=== PATIENT | female | born 1935 | race Caucasian/White ===

== ENCOUNTER 2016-06-09 18:19 | Inpatient (IN) | payer MEDICARE, MEDICAID, OTHER ==
[2016-06-09 19:10] LABS: % BASOPHILS 0.2 % (0.0-2.0); % EOSINOPHILS 2.1 % (0.0-5.0); % LYMPHOCYTES 34.2 % (20.0-50.0); % MONOCYTES 10.2 % (2.0-10.0); % NEUTROPHILS 53.3 % (40.0-80.0); HEMATOCRIT 40.1 % (35.0-45.0); HEMOGLOBIN 13.5 gm/dL (11.7-16.1); MEAN CORPUSCULAR HEMOGLOBIN 30.9 pg (27.0-31.0); MEAN CORPUSCULAR HGB CONC 33.6 pg (28.0-36.0); MEAN PLATELET VOLUME 8.2 fl; NEUTROPHILE ABSOLUTE 2.9 Th/cmm (1.8-8.0); PLATELET COUNT 182 Th/cmm (150-400); RED BLOOD COUNT 4.36 Mil/cmm (3.80-5.20); RED CELL DISTRIBUTION WIDTH 13.3 % (11.5-20.0); WHITE BLOOD COUNT 5.3 Th/cmm (4.8-10.8)
[2016-06-09 19:24] LABS: ANION GAP 11.6 (7.0-16.0); BUN - UREA NITROGEN 19 mg/dL (7-25); BUN/CREATININE RATIO 27.1; CALCIUM SERUM 9.1 mg/dL (8.6-10.3); CARBON DIOXIDE 27.6 mEq/L (21.0-31.0); CHLORIDE 102 mEq/L (98-107); CHOLESTEROL 210 mg/dL (<200); CREATININE - SERUM 0.7 mg/dL (0.6-1.2); GLUCOSE 104 mg/dL (70-105); POTASSIUM SERUM 4.2 mEq/L (3.5-5.1); SODIUM SERUM 137 mEq/L (136-145); TRIGLYCERIDES 111 mg/dL (<150)
--- NOTE | 2016-06-09 19:28 | ED Physician Chart ---
Chief Complaint/HPI - Patient Information Date Seen:: 06/09/16 Time Seen:: 19:25 Chief Complaint:: jocelyn psych admit History of Present Illness:: pt sent from [place] for behavioral issues which were noncompliance w care. she denies pain or recent illness. no fever, no cp. no sob, no abd p. no recent injury Allergies:: Allergies Allergy/AdvReac Type Severity Reaction Status Date / Time iodine Allergy Verified 10/14/15 17:03 blueberry AdvReac Verified 10/14/15 17:03 prochlorperazine AdvReac Verified 10/14/15 17:03 [From Compazine] prochlorperazine edisylate AdvReac Verified 10/14/15 17:03 [From Compazine] prochlorperazine maleate AdvReac Verified 10/14/15 17:03 [From Compazine] sulfacetamide sodium AdvReac Verified 10/14/15 17:03 [From Sulfamide] Vitals:: Vital Signs - 8 hr 06/09/16 18:39 Temp 98.1 F HR 66 RR 16 BP 152/78 O2 Sat % 96 Historian:: Patient, Medical Records Review:: Transfer documents Reviewed Past Medical History - Past Medical History Past Medical History: HTN, DM, Asthma/COPD, Dyslipidemia, Dementia, Other ( parkinsons, hx uterine/ov? ca) Social History: Care Facility Surgical History: Cholecystectomy, Hysterectomy Medication: Reviewed Family Medical History - Family Member Mother History Unknown: Yes Ethnicity: Unknown Living Status: Unknown Physical Exam - Physical Examination General/Constitutional: Awake, Well-developed, well-nourished, Alert, No distress, GCS 15, Non-toxic appearing, Ambulatory Other Gen/Cons comments:: alert, somewhat poor historian.. mod obese. nad. Head: Atraumatic Eyes: Lids, conjuctiva normal, PERRL, EOMI Skin: Nl inspection, No rash, No skin lesions, No ecchymosis, Well hydrated, No lymphadenopathy ENMT: External ears, nose nl, Nasal exam nl, Lips, teeth, gums nl Neck: Nontender, Full ROM w/o pain, No JVD, No nuchal rigidity, No bruit, No mass, No stridor Respiratory: Nl effort/Exclusion, Clear to Auscultation, No Wheeze/Rhonchi/Rales Cardio Vascular: RRR, No murmur, gallop, rubs, NL S1 S2 GI: No tenderness/rebounding/guarding, No organomegaly, No hernia, Normal BS's, Nondistended, No mass/bruits, No McBurney tenderness : No CVA tenderness Extremities: No tenderness or effusion, Full ROM, normal strength in all extremities, No edema, Normal digits & nails Neuro/Psych: Alert/oriented, DTR's symmetric, Normal sensory exam, Normal motor strength, Judgement/insight normal, Mood normal, Normal gait, No focal deficits Other Neuro/Psych comments:: somewhat poor historian Misc: normal gait, Normal back, No paraspinal tenderness Labs/Radiology/EKG Results - Lab Results Results: Laboratory Tests 06/09/16 06/09/16 18:59 18:59 WBC 5.3 RBC 4.36 Hgb 13.5 Hct 40.1 MCV 92.0 MCH 30.9 MCHC Differential 33.6 RDW 13.3 Plt Count 182 MPV 8.2 Neutrophils % 53.3 Lymphocytes % 34.2 Monocytes % 10.2 H Eosinophils % 2.1 Basophils % 0.2 Sodium 137 Potassium 4.2 Chloride 102 Carbon Dioxide 27.6 Anion Gap 11.6 BUN 19 Creatinine 0.7 Est GFR ( Amer) TNP Est GFR (Non-Af Amer) TNP BUN/Creatinine Ratio 27.1 Glucose 104 Calcium 9.1 Triglycerides 111 Cholesterol 210 H LDL Cholesterol Direct 129 HDL Cholesterol 65 - EKG Interpretations EKG Time:: 19:00 Rate & Rhythm: nsr 65 [place]: 19 Intervals: nrml Comments:: wnl ED Septic Shock - . Is Septic Shock (SBP<90, OR Lactate>4 mmol\L) present?: No - <6hrs of presentation: Vital Signs: Vital Signs - 8 hr 06/09/16 18:39 Temp 98.1 F HR 66 RR 16 BP 152/78 O2 Sat % 96 Reassessment (Disposition) - Reassessment Reassessment Condition:: Unchanged - Diagnosis Diagnosis:: difficult behavior / noncompliant w AOL medically clear for geripsych admission - Patient Disposition Admitted to:: [facility] Condition at Disposition:: Unchanged ED Discharge Plan - Patient Disposition Instructions: Psychosis
[2016-06-09] MEDS ORDERED: Maalox 30 mL Cup PO PRN (20:52)
[2016-06-09] MEDS ORDERED: Magnesium Hydroxide (MOM) 30 mL UDC PO PRN (20:52)
[2016-06-09 21:00] VITALS: BP 143/70
[2016-06-09 21:06] LABS: URINE BILIRUBIN NEGATIVE (NEGATIVE); URINE BLOOD NEGATIVE (NEGATIVE); URINE COLOR YELLOW; URINE GLUCOSE (UA) NEGATIVE (NEGATIVE); URINE KETONE NEGATIVE (NEGATIVE); URINE PH 6.5; URINE PROTEIN NEGATIVE (NEGATIVE); URINE UROBILINOGEN 0.2 E.U./dL (0.2 - 1.0)
[2016-06-09 21:07] LABS: URINE BACTERIA NONE SEEN /hpf (NONE SEEN); URINE EPITHELIAL CELLS NONE SEEN /lpf (FEW); URINE RBC NONE SEEN /hpf (0-5); URINE WBC NONE SEEN /hpf (0-5)
[2016-06-09] MEDS: INSULIN ASPART SLIDING SCALE 100 UNITS/ML UNIT SUBQ SCH (22:06)
[2016-06-09] MEDS: Oxybutynin Chloride 5 mg ER Tab PO SCH (22:12)
--- NOTE | 2016-06-10 00:42 | Admit Criteria Form ---
Admit Criteria Forms - Admit Criteria Diagnosis: PSYCHIATRIC DISORDERS Clinical Indications for Inpatient Care (Place 'X' for any and all applicable criteria): Ongoing inpatient care may be needed for ANY ONE of the following(1)(2)(3)(4)(6) (7)(8): [ ]I. Danger to self or others not manageable at lower level of care. [ ]II. Grave disability (eg, inability to perform self care necessary at lower level of care) [X]III. Agitation or inappropriate behavior interfering with care for primary condition (eg, attempting to discontinue lines or drains prematurely, unable to cooperate with respiratory care) [ ]IV. Severe disability or disorder indicated by ALL of the following: [ ]a) Severe behavioral health disorder-related symptoms or condition indicated by ANY ONE of the following: [ ]i) Severe problem with cognition, memory, judgment, or impulse control [ ]ii) Severe clinical manifestations (eg, hallucinations, delusions, other acute psychotic symptoms, denis, extreme agitation or anxiety) [ ]b) Patient management at lower level of care is not feasible until acute intervention or modification is initiated. Extended stay beyond goal length of stay for the primary condition may be indicated when ANY ONE of the following is present: (1)(2)(3)(4): [ ]a) Patient is a danger to self or others and not manageable at lower level of care. [ ]b) Behavior crisis management, including physical or chemical restraints, is required and is not available at a lower level of care. [ ]c) Behavioral symptoms (e.g., agitation, somnolence, inappropriate behavior) are present, and are not manageable at a lower level of care. [ ]d) Patient cannot understand follow-up treatment and crisis plan. [ ]e) Provider and supports are not sufficiently available at lower level of care. [ ]f) Patient cannot participate (e.g., verify absence of plan for harm) and is in needed of monitoring. The original [facility] [employer] content created by [facility] [employer] has been revised. The portions of the content which have been revised are identified through the use of italic text or in bold, and [facility] [employer] has neither reviewed nor approved the modified material. All other unmodified content is copyright [facility] [employer]. Please see references footnoted in the original [facility] edition 2016 Admit Criteria Met?: Yes
[2016-06-10] MEDS: INSULIN ASPART SLIDING SCALE 100 UNITS/ML UNIT SUBQ SCH ×3 (06:41→21:16)
[2016-06-10] MEDS ORDERED: Non-Formulary Item 1 EA (Fluticasone/Salmeterol [Advair 250-50 Diskus] 1 PUFF) INH SCH (07:00)
[2016-06-10 08:10] LABS: HEP B CORE IGM Negative (Negative); HEP C ANTIBODY 0.1 s/co ratio (0.0-0.9)
[2016-06-10] MEDS: Multivitamin Tab PO SCH (08:37)
[2016-06-10] MEDS ORDERED: [UNRECOGNIZED DRUG - OTHER] IH SCH (09:00)
--- NOTE | 2016-06-10 15:01 | History & Physical ---
ADMIT DATE: 06/10/2016 IDENTIFYING INFORMATION: The patient is 80 years old female. CHIEF COMPLAINT: "I am doing blood work." HISTORY OF PRESENT ILLNESS: The patient referred from [facility] because of agitation, psychosis, refusing medication. She apparently was told to come here to do lab work. She said I have done the lab work and I am ready to go home. She minimized everything that led to her admission. She is unpredictable, impulsive. She was in denial about having any intent to harm herself or anybody, very poor historian. PAST PSYCHIATRIC HISTORY: The patient has prior hospitalization many prior hospitalizations. She has a history of being ____ because of the seizure medication. She is delusional, paranoid. MEDICAL HISTORY: History of seizure disorder and Parkinson's. MEDICATIONS: THE PATIENT IS ALLERGIC TO IODINE, PROCHLORPERAZINE, BLUEBERRY, SULFACETAMIDE SODIUM. FAMILY AND SOCIAL HISTORY: The patient reports she has 4 children, 16 grandchildren. She is . She reports she has high school education. 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 She is , does not know how long. No further information is available from the patient. MENTAL STATUS EXAMINATION: The patient is appropriately dressed, appropriately groomed. Her mood is depressed. Affect is constricted. Thoughts are concrete. Speech is coherent. She was alert. She was able to tell me that this is May, not sure of the year. She believes she came here for lab work and need to leave here. She was internally preoccupied. Unable to make safe plan for self-care. She was somewhat paranoid. Long-term memory is poor, cannot remember her age exactly. Short term memory is poor, cannot remember events after coming here. She is unpredictable and impulsive. Her insight and judgment impaired. IMPRESSION: AXIS I: Psychosis, not otherwise specified, dementia with behavior disturbances. MEDICAL DIAGNOSES: Parkinson disease, seizure disorder. Her assets, she is accepting treatment, ____ poor coping skills. INITIAL TREATMENT PLAN: The patient was continued with the Aricept 10 mg at bedtime. She will be continued with the rest of medications, which is Gabapentin 100 mg twice a day, multivitamin, Dilantin and Seroquel 225 mg at bedtime. She is also on Namenda 10 mg twice a day. We will continue her on rest of her medication, ____ also put on seizure precaution. ESTIMATED LENGTH OF STAY: 3-7 days. DISCHARGE CRITERIA: Decrease in psychosis, agitation. After discharge, outpatient. JOB# [id number]
--- NOTE | 2016-06-10 18:00 | History & Physical ---
ADMIT DATE: 06/10/2016 REQUESTING PHYSICIAN: Dr. Crystal. HISTORY OF PRESENT ILLNESS: An 80-year-old female [facility] after the patient was noted to have extreme agitation and aggressive behavior. PAST MEDICAL HISTORY: Remarkable for: 1. Parkinson's disease. 2. COPD. 3. DJD. 4. Hypertension. 5. Seizure disorder. 6. Dementia. 7. History of arrest. 8. Hyperlipidemia. 9. GERD. 10. Diabetes mellitus. MEDICATIONS: At the time of transfer, the patient is taking multiple medications, which include Tylenol, bisacodyl, Sinemet, Aricept, Vasotec, Advair, Neurontin, sliding scale insulin, lorazepam, magnesium sulfate, Namenda, oxybutynin, pioglitazone and Seroquel. ALLERGIES: THE PATIENT IS ALLERGIC TO IODINE, PROCHLORPERAZINE AND BLUE CEBALLOS. SOCIAL HISTORY: The patient lives in a chcf. The patient has no history of smoking cigarette, alcohol or drug use. FAMILY MEDICAL HISTORY: Negative for diabetes and hypertension. REVIEW OF SYSTEMS: The patient currently denies any headache, blurred vision, double vision, dysphagia, odynophagia, runny nose, stuffy nose, fever, chills, cough, chest pain, shortness of breath, palpitation, dizziness, nausea, vomiting, diarrhea. Denies any fever or chills. PHYSICAL EXAMINATION: GENERAL: The patient is alert, awake, oriented, lying in the bed without any acute distress. VITAL SIGNS: Temperature 98.6, pulse 71, respiratory rate is 20, blood pressure 143/70. SKIN: Warm to touch. HEENT: Normocephalic, atraumatic. Extraocular muscles are intact. Tongue more pink and coated. Poor dentition noted. NECK: Supple, no JVD, no hepatojugular reflux. No lymphadenopathy, thyromegaly or carotid bruit. HEART: Both heart sounds are regular. No S3, no S4, no murmur. CHEST: Lung equal in expansion, no wheezing, no crackles. ABDOMEN: Soft. No guarding, no rigidity. Liver, spleen not palpable. No palpable mass. EXTREMITIES: No edema, no cyanosis or clubbing. Peripheral pulses +2. No calf tenderness noted. NEUROLOGIC: Alert, awake, follows commands. No facial asymmetry. Power in upper and lower extremities is 5-. Sensation to touch are intact. Babinskis in both toes are going down. No cerebral sign. Broad wide-based gait also noted. AVAILABLE DIAGNOSTIC DATA: Has been reviewed. CLINICAL IMPRESSION: 1. Acute exacerbation of psychotic disorder. 2. Diabetes mellitus. 3. Hypertension. 4. Seizure disorder. 5. Asthma. 6. Degenerative joint disease. 7. Psychotic disorder. 8. Fall risk. PLAN: 1. Psychotic evaluation and management refer to psychiatrist. 2. The patient is to resume her medications, which includes Advair, Namenda, Sinemet along with Actos and Dilantin. Continue fall and seizure precautions, seizure medications, monitoring the blood sugar and blood pressure along with medical followup by me. The patient is medically stable to participate ____ Geropsych Unit. Care plan has been reviewed and discussed. JOB# [id number]
[2016-06-10] MEDS: Oxybutynin Chloride 5 mg ER Tab PO SCH (21:25)
[2016-06-11] MEDS: INSULIN ASPART SLIDING SCALE 100 UNITS/ML UNIT SUBQ SCH ×4 (06:52→20:16)
[2016-06-11] MEDS: Multivitamin Tab PO SCH (08:27)
[2016-06-11] MEDS: Oxybutynin Chloride 5 mg ER Tab PO SCH (20:22)
--- NOTE | 2016-06-12 01:10 | Progress Notes ---
DATE: 06/11/2016 Case was discussed with staff of the patient, reviewed records. The patient refused her medication this morning; however, I tried to persuade her. She said she does not need to be on medications. She is unpredictable, impulsive, continues to have poor insight, unable to make safe plan for her self-care, delusional and we will try to put on the hold and ____ she continues to refuse; however, she needs to refuse ____3 times in general and we will continue to work with the patient in group therapy, milieu therapy, adjust medication as needed. [facility]# [id number]
[2016-06-12] MEDS: INSULIN ASPART SLIDING SCALE 100 UNITS/ML UNIT SUBQ SCH ×4 (06:32→20:25)
[2016-06-12] MEDS: Multivitamin Tab PO SCH (08:41)
[2016-06-12] MEDS: Oxybutynin Chloride 5 mg ER Tab PO SCH (20:25)
[2016-06-13] MEDS: INSULIN ASPART SLIDING SCALE 100 UNITS/ML UNIT SUBQ SCH ×4 (06:32→20:11)
[2016-06-13] MEDS: Multivitamin Tab PO SCH (09:15)
--- NOTE | 2016-06-13 19:24 | Progress Notes ---
DATE: 06/12/2016 Case was discussed with staff of the patient, reviewed records. The patient has been refusing medications. She believes she is getting discharged. She is delusional, paranoid, believes she is fine, have no problems. Continues to be unable to make safe plan for self-care. Continues to be unpredictable, impulsive, needing redirection. She is sleeping well, eating well. She is not taking medication, we may have to put on hold the ____ and we will continue to work with the patient in group therapy, milieu therapy, and adjust the medications as needed. JOB# [id number]
[2016-06-13] MEDS: Oxybutynin Chloride 5 mg ER Tab PO SCH (20:04)
--- NOTE | 2016-06-14 05:23 | Progress Notes ---
DATE: 06/13/2016 Case was discussed with staff of the patient, reviewed records. The patient continues to have poor insight. I talked to her again today about taking her medications, she refused to talk to me. She said I am not a doctor, that she is ready to get out of here, that even her blood sugar is fine, that she does not need to be on any medication. I went ahead and listed the side effect of the medications she was on, which is Seroquel 225 mg at bedtime, also Haldol that we may give her, and Aricept; however, the patient brushed it off and she would not listen. I asked the staff to bring her a list of side effects of the medications she is on so she can also look at it, I did elicit to her. She has still very poor insight. She told me I am not a doctor, she does not need to talk to me, that she is going and leaving this place. I told her I am the one who can discharge her and I am not discharging her. She continues to have very poor insight. I will be putting her on a hold and may have to initiate a Riese on her because she is gravely disabled and unable to make safe plan for self-care, and we will continue to work with the patient in group therapy, milieu therapy, and adjust the medication as needed. JOB# [id number]
[2016-06-14] MEDS: INSULIN ASPART SLIDING SCALE 100 UNITS/ML UNIT SUBQ SCH ×4 (06:44→21:54)
[2016-06-14] MEDS: Multivitamin Tab PO SCH (08:49)
[2016-06-14] MEDS ORDERED: Dextrose 50% 50 mL Abboject IVP ONE (19:58)
[2016-06-14] MEDS: Oxybutynin Chloride 5 mg ER Tab PO SCH (21:55)
--- NOTE | 2016-06-15 03:36 | Progress Notes ---
DATE: 06/14/2016 Today, talked to the patient with the med nurse Jaquan Almanza. We talked to patient about the medications. She believes that I am not a doctor. She is not taking any medication. She should not be on any medication and that she should be discharged and actually she is going to be discharged. I did list for the side effects of the medications and asked the med nurse to give her a copy of the side effects of the Seroquel after I elicited to her. However, she said that she is willing to take the medication and she did end up taking it, so at this point I am not going to ____ unless she starts refusing medication again. She is still delusional, paranoid. She believes I am somebody else, unpredictable, impulsive, needing redirection, isolating herself. We will continue to work with the patient in group therapy, milieu therapy, adjust medications as needed. JOB# [id number]
[2016-06-15] MEDS: INSULIN ASPART SLIDING SCALE 100 UNITS/ML UNIT SUBQ SCH ×3 (06:49→20:20)
[2016-06-15] MEDS: Multivitamin Tab PO SCH (09:45)
--- NOTE | 2016-06-15 14:47 | Internal Medicine Prog Note ---
Internal Medicine Subjective - Subjective Patient seen and examined:: with staff, chart reviewed Patient is:: awake, verbal, interactive Per staff patient is:: no adverse event, confused Internal Medicine Objective - Results Result Diagrams: 06/09/16 18:59 06/09/16 18:59 Recent Labs: Laboratory Last Values WBC 5.3 Th/cmm (4.8-10.8) 06/09/16 18:59 RBC 4.36 Mil/cmm (3.80-5.20) 06/09/16 18:59 Hgb 13.5 gm/dL (11.7-16.1) 06/09/16 18:59 Hct 40.1 % (35.0-45.0) 06/09/16 18:59 MCV 92.0 fl (81-100) 06/09/16 18:59 MCH 30.9 pg (27.0-31.0) 06/09/16 18:59 MCHC Differential 33.6 pg (28.0-36.0) 06/09/16 18:59 RDW 13.3 % (11.5-20.0) 06/09/16 18:59 Plt Count 182 Th/cmm (150-400) 06/09/16 18:59 MPV 8.2 fl 06/09/16 18:59 Neutrophils % 53.3 % (40.0-80.0) 06/09/16 18:59 Lymphocytes % 34.2 % (20.0-50.0) 06/09/16 18:59 Monocytes % 10.2 % (2.0-10.0) H 06/09/16 18:59 Eosinophils % 2.1 % (0.0-5.0) 06/09/16 18:59 Basophils % 0.2 % (0.0-2.0) 06/09/16 18:59 Sodium 137 mEq/L (136-145) 06/09/16 18:59 Potassium 4.2 mEq/L (3.5-5.1) 06/09/16 18:59 Chloride 102 mEq/L (98-107) 06/09/16 18:59 Carbon Dioxide 27.6 mEq/L (21.0-31.0) 06/09/16 18:59 Anion Gap 11.6 (7.0-16.0) 06/09/16 18:59 BUN 19 mg/dL (7-25) 06/09/16 18:59 Creatinine 0.7 mg/dL (0.6-1.2) 06/09/16 18:59 Est GFR ( Amer) TNP 06/09/16 18:59 Est GFR (Non-Af Amer) TNP 06/09/16 18:59 BUN/Creatinine Ratio 27.1 06/09/16 18:59 Glucose 104 mg/dL (70-105) 06/09/16 18:59 POC Glucose 74 MG/DL (70 - 105) 06/15/16 11:45 Calcium 9.1 mg/dL (8.6-10.3) 06/09/16 18:59 Triglycerides 111 mg/dL (<150) 06/09/16 18:59 Cholesterol 210 mg/dL (<200) H 06/09/16 18:59 LDL Cholesterol Direct 129 mg/dL (75-193) 06/09/16 18:59 HDL Cholesterol 65 mg/dL (23-92) 06/09/16 18:59 TSH 0.78 uIU/ml (0.34-5.60) 06/09/16 18:59 Urine Source CLEAN C 06/09/16 19:00 Urine Color YELLOW 06/09/16 19:00 Urine Clarity CLEAR (CLEAR) 06/09/16 19:00 Urine pH 6.5 06/09/16 19:00 Ur Specific [place] 1.015 (1.005-1.030) 06/09/16 19:00 Urine Protein NEGATIVE mg/dL (NEGATIVE) 06/09/16 19:00 Urine Glucose (UA) NEGATIVE mg/dL (NEGATIVE) 06/09/16 19:00 Urine Ketones NEGATIVE mg/dL (NEGATIVE) 06/09/16 19:00 Urine Blood NEGATIVE (NEGATIVE) 06/09/16 19:00 Urine Nitrate NEGATIVE (NEGATIVE) 06/09/16 19:00 Urine Bilirubin NEGATIVE (NEGATIVE) 06/09/16 19:00 Urine Urobilinogen 0.2 E.U./dL (0.2 - 1.0) 06/09/16 19:00 Ur Leukocyte Esterase NEGATIVE (NEGATIVE) 06/09/16 19:00 Urine RBC NONE SEEN /hpf (0-5) 06/09/16 19:00 Urine WBC NONE SEEN /hpf (0-5) 06/09/16 19:00 Ur Epithelial Cells NONE SEEN /lpf (FEW) 06/09/16 19:00 Urine Bacteria NONE SEEN /hpf (NONE SEEN) 06/09/16 19:00 RPR NONREACTIVE (NONREACTIVE) 06/09/16 18:59 Hepatitis A IgM Ab Negative (Negative) 06/09/16 18:59 Hep Bs Antigen Negative (Negative) 06/09/16 18:59 Hep B Core IgM Ab Negative (Negative) 06/09/16 18:59 Hepatitis C Antibody 0.1 s/co ratio (0.0-0.9) 06/09/16 18:59 - Physical Exam Vitals and I&O: Vital Signs Temp 98.0 F 06/15/16 06:41 Pulse 70 06/15/16 06:41 Resp 20 06/15/16 11:05 BP 156/76 06/15/16 06:41 Pulse Ox 97 06/15/16 06:41 Intake & Output 06/14/16 06/15/16 06/15/16 18:59 06:59 18:59 Intake Total 240 Balance 240 Intake: Oral 240 Other: # Voids 1 # Bowel Movements 0 Active Medications: Current Medications Acetaminophen (Tylenol) 650 mg PO Q4HR PRN PRN Reason: Pain Stop: 08/08/16 20:51 Al Hydrox/Mg Hydrox/Simethicone (Maalox) 30 ml PO Q4HR PRN PRN Reason: GI DISTRESS Stop: 08/08/16 20:51 Bisacodyl (Dulcolax 10 Mg Supp) 10 mg RC DAILY PRN PRN Reason: Constipation Stop: 08/08/16 20:51 Carbidopa/Levodopa (Sinemet 25 Mg-250 Mg) 1 tab PO QID EMILY Stop: 08/08/16 20:59 Last Admin: 06/15/16 12:37 Dose: Not Given Donepezil HCl (Aricept) 10 mg PO HS EMILY Stop: 08/08/16 20:59 Last Admin: 06/14/16 21:55 Dose: Not Given Enalapril Maleate (Vasotec) 10 mg PO DAILY EMILY Stop: 08/09/16 08:59 Last Admin: 06/15/16 09:45 Dose: Not Given Gabapentin (Neurontin) 100 mg PO BID EMILY Stop: 08/09/16 08:59 Last Admin: 06/15/16 09:45 Dose: Not Given Haloperidol (Haldol) 2 mg PO DAILY EMILY PRN Reason: Protocol Stop: 08/14/16 12:14 Last Admin: 06/15/16 14:37 Dose: Not Given Insulin Aspart (Novolog Insulin Sliding Scale) 0 units SUBQ ACHS EMILY PRN Reason: Protocol Stop: 08/08/16 20:59 Last Admin: 06/15/16 11:30 Dose: Not Given Lorazepam (Ativan) 0.5 mg PO Q6H PRN; Protocol PRN Reason: Agitation Stop: 08/08/16 20:51 Magnesium Hydroxide (Milk Of Magnesia) 30 ml PO DAILY PRN PRN Reason: Constipation Stop: 08/08/16 20:51 Memantine (Namenda) 10 mg PO BID [facility] Stop: 08/09/16 08:59 Last Admin: 06/15/16 09:45 Dose: Not Given Miscellaneous (Fluticasone Propionate/Salme [Advair Diskus 500/50]) 1 dsk IH BID [facility] Stop: 08/09/16 08:59 Miscellaneous (Fluticasone/Salmeterol [Advair 250-50 Diskus]) 1 puff INH BIDRT [facility] Stop: 08/09/16 06:59 Multivitamins/Vitamin C (Theragran) 1 tab PO DAILY [facility] Stop: 08/09/16 08:59 Last Admin: 06/15/16 09:45 Dose: Not Given Oxybutynin Chloride (Ditropan Xl) 5 mg PO HS [facility] Stop: 08/08/16 20:59 Last Admin: 06/14/16 21:55 Dose: Not Given Phenytoin (Dilantin) 100 mg PO TID EMILY Stop: 08/08/16 20:59 Last Admin: 06/15/16 13:38 Dose: Not Given Pioglitazone HCl (Actos) 30 mg PO DAILY [facility] Stop: 08/09/16 08:59 Last Admin: 06/15/16 09:45 Dose: Not Given Quetiapine Fumarate 200 mg/ (Quetiapine Fumarate 25 mg) 225 mg PO HS [facility] Stop: 08/09/16 20:59 Last Admin: 06/14/16 21:55 Dose: Not Given General: demented HEENT: NC/AT, PERRLA Neck: Supple, No JVD Lungs: CTAB Cardiovascular: RRR, Normal S1, Normal S2 Abdomen: soft non-tender, globular Extremities: excoriation Neurological: no change - Procedures Procedures: Procedures Procedure Code Date OTHER GROUP THERAPY 94.44 08/26/14 Internal Medicine Assmt/Plan - Assessment Assessment: dm htn inc chol debility - Plan Plan: cont on ada iss cont on bp medsd neri rn Nutritional Asmnt/Malnutr-PDOC - Dietary Evaluation Malnutrition Findings (Please click <Entered> for more info): Nutritional Asmnt/Malnutrition Start: 06/14/16 14: 55 Text: Status: Complete Freq: Document 06/14/16 14:55 GSUN (Rec: 06/14/16 15:06 [email or web address] [id number]) Nutritional Asmnt/Malnutrition Patient General Information Nutritional Screening Moderate Risk Screening Diagnosis Acute exacerbation of psychotic disorder Pertinent Medical Hx/Surgical Hx Parkinson's disease, COPD, DJD , HTN, seizure disorder, dementia, hyperlipidemia, GERD , DM Subjective Information 80 year old female from SNF. Pt was asleep during visit, unable to be woken up. Observed lunch tray 100% finished at bedside. Avg PO itnake 100% of meals since adm . Per nursing staff and RN notes, pt is orientated to self only, has good appetite, no nutritional cocnerns at this time. CBW bedscale 179. 7lb, questionable, EMR record 169lb. Current Diet Order/ Nutrition Support Chopped, MOISES, CCHO Pertinent Medications Maalox, Novolog, MOM, Theragran Pertinent Labs POC glucose WNL past 4 days, with 1 elevated level of 115H. Nutritional Hx/Data Height 1.78 m Height (Calculated Centimeters) 177.8 Current Weight (lbs) 76.657 kg Weight (Calculated Kilograms) 76.7 Weight (Calculated Grams) 09140.1 [place] Body Weight 150 Weight Status Approriate GI Symptoms Food Allergies Yes Cultural/Ethnic/Orthodoxy Belief Allergies to blueberry Usual diet at home [facility] soft, MOISES, CCHO Skin Integrity/Comment: Leandro Larose. Skin intact. Current %PO Good (75-100%) Estimated Nutritional Goals BEE in Kcals: Using Current wt Calories/Kcals/Kg CBW 169lb/76.7kg Kcals Calculated 1918-2301kcal (25-30kcal/kg) Protein: Using Current wt Protein Calculated 77g (1g/kg) Fluid: ml 1918-2301ml (1ml/kcal) Nutritional Problem 1. Problem Problem Inadequate carbohydrate intake related to Etiology estimated nutritional needs aeb Signs/Symptoms: [id number] does not provide to meet 100% of estimated nutritional needs. Intervention/Recommendation Comments 1. Recommend [id number]. Current diet order does not provide to meet 100% of estimated nutritional needs. POC glucose WNL. Avg PO intake is adequate. Expected Outcomes/Goals Expected Outcomes/Goals 1. PO intake continue to meet at least 75% of estimated nutritional needs.
[2016-06-15] MEDS: Oxybutynin Chloride 5 mg ER Tab PO SCH (20:20)
--- NOTE | 2016-06-16 02:51 | Progress Notes ---
DATE: 06/15/2016 Case was discussed with staff of the patient, reviewed records, talked to the patient with the medication nurse. The patient apparently refused to take her Seroquel last night though she took it at lunch. When I talked to her, she agreed, so today she says she is not taking Seroquel. She agreed to take Haldol if you give her Valium with it and when the medication nurse went to give it to her, she refused to take it. She says she will take it after lunch. So, she refused it. I will go ahead and restart as of tomorrow. However, she is still delusional. She does not believe I am a doctor. She believes she is leaving this place. She is aware of the side effects. We discussed that with her. She is sleeping well, eating well and still delusional, paranoid, unable to make safe plan for self-care. We will continue outpatient group therapy, milieu therapy and adjust medication as needed. JOB# [id number]
[2016-06-16] MEDS: INSULIN ASPART SLIDING SCALE 100 UNITS/ML UNIT SUBQ SCH ×4 (06:35→20:17)
[2016-06-16] MEDS: Multivitamin Tab PO SCH (08:21)
--- NOTE | 2016-06-16 15:24 | Internal Medicine Prog Note ---
Internal Medicine Subjective - Subjective Patient seen and examined:: with staff, chart reviewed Patient is:: awake, verbal, interactive Per staff patient is:: no adverse event, confused Internal Medicine Objective - Results Result Diagrams: 06/09/16 18:59 06/09/16 18:59 Recent Labs: Laboratory Last Values WBC 5.3 Th/cmm (4.8-10.8) 06/09/16 18:59 RBC 4.36 Mil/cmm (3.80-5.20) 06/09/16 18:59 Hgb 13.5 gm/dL (11.7-16.1) 06/09/16 18:59 Hct 40.1 % (35.0-45.0) 06/09/16 18:59 MCV 92.0 fl (81-100) 06/09/16 18:59 MCH 30.9 pg (27.0-31.0) 06/09/16 18:59 MCHC Differential 33.6 pg (28.0-36.0) 06/09/16 18:59 RDW 13.3 % (11.5-20.0) 06/09/16 18:59 Plt Count 182 Th/cmm (150-400) 06/09/16 18:59 MPV 8.2 fl 06/09/16 18:59 Neutrophils % 53.3 % (40.0-80.0) 06/09/16 18:59 Lymphocytes % 34.2 % (20.0-50.0) 06/09/16 18:59 Monocytes % 10.2 % (2.0-10.0) H 06/09/16 18:59 Eosinophils % 2.1 % (0.0-5.0) 06/09/16 18:59 Basophils % 0.2 % (0.0-2.0) 06/09/16 18:59 Sodium 137 mEq/L (136-145) 06/09/16 18:59 Potassium 4.2 mEq/L (3.5-5.1) 06/09/16 18:59 Chloride 102 mEq/L (98-107) 06/09/16 18:59 Carbon Dioxide 27.6 mEq/L (21.0-31.0) 06/09/16 18:59 Anion Gap 11.6 (7.0-16.0) 06/09/16 18:59 BUN 19 mg/dL (7-25) 06/09/16 18:59 Creatinine 0.7 mg/dL (0.6-1.2) 06/09/16 18:59 Est GFR ( Amer) TNP 06/09/16 18:59 Est GFR (Non-Af Amer) TNP 06/09/16 18:59 BUN/Creatinine Ratio 27.1 06/09/16 18:59 Glucose 104 mg/dL (70-105) 06/09/16 18:59 POC Glucose 106 MG/DL (70 - 105) H 06/15/16 19:39 Calcium 9.1 mg/dL (8.6-10.3) 06/09/16 18:59 Triglycerides 111 mg/dL (<150) 06/09/16 18:59 Cholesterol 210 mg/dL (<200) H 06/09/16 18:59 LDL Cholesterol Direct 129 mg/dL (75-193) 06/09/16 18:59 HDL Cholesterol 65 mg/dL (23-92) 06/09/16 18:59 TSH 0.78 uIU/ml (0.34-5.60) 06/09/16 18:59 Urine Source CLEAN C 06/09/16 19:00 Urine Color YELLOW 06/09/16 19:00 Urine Clarity CLEAR (CLEAR) 06/09/16 19:00 Urine pH 6.5 06/09/16 19:00 Ur Specific [place] 1.015 (1.005-1.030) 06/09/16 19:00 Urine Protein NEGATIVE mg/dL (NEGATIVE) 06/09/16 19:00 Urine Glucose (UA) NEGATIVE mg/dL (NEGATIVE) 06/09/16 19:00 Urine Ketones NEGATIVE mg/dL (NEGATIVE) 06/09/16 19:00 Urine Blood NEGATIVE (NEGATIVE) 06/09/16 19:00 Urine Nitrate NEGATIVE (NEGATIVE) 06/09/16 19:00 Urine Bilirubin NEGATIVE (NEGATIVE) 06/09/16 19:00 Urine Urobilinogen 0.2 E.U./dL (0.2 - 1.0) 06/09/16 19:00 Ur Leukocyte Esterase NEGATIVE (NEGATIVE) 06/09/16 19:00 Urine RBC NONE SEEN /hpf (0-5) 06/09/16 19:00 Urine WBC NONE SEEN /hpf (0-5) 06/09/16 19:00 Ur Epithelial Cells NONE SEEN /lpf (FEW) 06/09/16 19:00 Urine Bacteria NONE SEEN /hpf (NONE SEEN) 06/09/16 19:00 RPR NONREACTIVE (NONREACTIVE) 06/09/16 18:59 Hepatitis A IgM Ab Negative (Negative) 06/09/16 18:59 Hep Bs Antigen Negative (Negative) 06/09/16 18:59 Hep B Core IgM Ab Negative (Negative) 06/09/16 18:59 Hepatitis C Antibody 0.1 s/co ratio (0.0-0.9) 06/09/16 18:59 - Physical Exam Vitals and I&O: Vital Signs Temp 97.3 F 06/16/16 14:10 Pulse 82 06/16/16 14:10 Resp 20 06/16/16 14:10 BP 159/77 06/16/16 14:10 Pulse Ox 95 06/16/16 14:10 Intake & Output 06/15/16 06/16/16 06/16/16 18:59 06:59 18:59 Intake Total 1800 240 Balance 1800 240 Intake: Oral 1800 240 Other: # Voids 3 3 # Bowel Movements 1 0 Active Medications: Current Medications Acetaminophen (Tylenol) 650 mg PO Q4HR PRN PRN Reason: Pain Stop: 08/08/16 20:51 Al Hydrox/Mg Hydrox/Simethicone (Maalox) 30 ml PO Q4HR PRN PRN Reason: GI DISTRESS Stop: 08/08/16 20:51 Bisacodyl (Dulcolax 10 Mg Supp) 10 mg RC DAILY PRN PRN Reason: Constipation Stop: 08/08/16 20:51 Carbidopa/Levodopa (Sinemet 25 Mg-250 Mg) 1 tab PO QID EMILY Stop: 08/08/16 20:59 Last Admin: 06/16/16 12:35 Dose: Not Given Donepezil HCl (Aricept) 10 mg PO HS EMILY Stop: 08/08/16 20:59 Last Admin: 06/15/16 20:20 Dose: Not Given Enalapril Maleate (Vasotec) 10 mg PO DAILY EMILY Stop: 08/09/16 08:59 Last Admin: 06/16/16 08:20 Dose: Not Given Gabapentin (Neurontin) 100 mg PO BID EMILY Stop: 08/09/16 08:59 Last Admin: 06/16/16 08:20 Dose: Not Given Haloperidol (Haldol) 2 mg PO DAILY EMILY PRN Reason: Protocol Stop: 08/14/16 12:14 Last Admin: 06/16/16 08:20 Dose: Not Given Insulin Aspart (Novolog Insulin Sliding Scale) 0 units SUBQ ACHS EMILY PRN Reason: Protocol Stop: 08/08/16 20:59 Last Admin: 06/16/16 12:35 Dose: Not Given Lorazepam (Ativan) 0.5 mg PO Q6H PRN; Protocol PRN Reason: Agitation Stop: 08/08/16 20:51 Magnesium Hydroxide (Milk Of Magnesia) 30 ml PO DAILY PRN PRN Reason: Constipation Stop: 08/08/16 20:51 Memantine (Namenda) 10 mg PO BID [facility] Stop: 08/09/16 08:59 Last Admin: 06/16/16 08:20 Dose: Not Given Miscellaneous (Fluticasone Propionate/Salme [Advair Diskus 500/50]) 1 dsk IH BID EMILY Stop: 08/09/16 08:59 Miscellaneous (Fluticasone/Salmeterol [Advair 250-50 Diskus]) 1 puff INH BIDRT [facility] Stop: 08/09/16 06:59 Multivitamins/Vitamin C (Theragran) 1 tab PO DAILY [facility] Stop: 08/09/16 08:59 Last Admin: 06/16/16 08:21 Dose: Not Given Oxybutynin Chloride (Ditropan Xl) 5 mg PO HS [facility] Stop: 08/08/16 20:59 Last Admin: 06/15/16 20:20 Dose: Not Given Phenytoin (Dilantin) 100 mg PO TID EMILY Stop: 08/08/16 20:59 Last Admin: 06/16/16 08:21 Dose: Not Given Pioglitazone HCl (Actos) 30 mg PO DAILY [facility] Stop: 08/09/16 08:59 Last Admin: 06/16/16 08:21 Dose: Not Given Quetiapine Fumarate 200 mg/ (Quetiapine Fumarate 25 mg) 225 mg PO HS [facility] Stop: 08/09/16 20:59 Last Admin: 06/15/16 20:20 Dose: Not Given General: demented HEENT: NC/AT, PERRLA Neck: Supple, No JVD Lungs: CTAB Cardiovascular: RRR, Normal S1, Normal S2 Abdomen: soft non-tender, globular Extremities: excoriation Neurological: no change - Procedures Procedures: Procedures Procedure Code Date OTHER GROUP THERAPY 94.44 08/26/14 Internal Medicine Assmt/Plan - Assessment Assessment: dm htn inc chol debility - Plan Plan: cont on ada iss cont on bp medsd neri rn Nutritional Asmnt/Malnutr-PDOC - Dietary Evaluation Malnutrition Findings (Please click <Entered> for more info): Nutritional Asmnt/Malnutrition Start: 06/14/16 14: 55 Text: Status: Complete Freq: Document 06/14/16 14:55 GSUN (Rec: 06/14/16 15:06 [email or web address] [email or web address]) Nutritional Asmnt/Malnutrition Patient General Information Nutritional Screening Moderate Risk Screening Diagnosis Acute exacerbation of psychotic disorder Pertinent Medical Hx/Surgical Hx Parkinson's disease, COPD, DJD , HTN, seizure disorder, dementia, hyperlipidemia, GERD , DM Subjective Information 80 year old female from SNF. Pt was asleep during visit, unable to be woken up. Observed lunch tray 100% finished at bedside. Avg PO itnake 100% of meals since adm . Per nursing staff and RN notes, pt is orientated to self only, has good appetite, no nutritional cocnerns at this time. CBW bedscale 179. 7lb, questionable, EMR record 169lb. Current Diet Order/ Nutrition Support Chopped, MOISES, CCHO Pertinent Medications Maalox, Novolog, MOM, Theragran Pertinent Labs POC glucose WNL past 4 days, with 1 elevated level of 115H. Nutritional Hx/Data Height 1.78 m Height (Calculated Centimeters) 177.8 Current Weight (lbs) 76.657 kg Weight (Calculated Kilograms) 76.7 Weight (Calculated Grams) [address] Body Weight 150 Weight Status Approriate GI Symptoms Food Allergies Yes Cultural/Ethnic/Anglican Belief Allergies to blueberry Usual diet at home [facility] : [facility] soft, MOISES, CCHO Skin Integrity/Comment: Leandro Larose. Skin intact. Current %PO Good (75-100%) Estimated Nutritional Goals BEE in Kcals: Using Current wt Calories/Kcals/Kg CBW 169lb/76.7kg Kcals Calculated 1918-2301kcal (25-30kcal/kg) Protein: Using Current wt Protein Calculated 77g (1g/kg) Fluid: ml 8-2301ml (1ml/kcal) Nutritional Problem 1. Problem Problem Inadequate carbohydrate intake related to Etiology estimated nutritional needs aeb Signs/Symptoms: [id number] does not provide to meet 100% of estimated nutritional needs. Intervention/Recommendation Comments 1. Recommend [id number]. Current diet order does not provide to meet 100% of estimated nutritional needs. POC glucose WNL. Avg PO intake is adequate. Expected Outcomes/Goals Expected Outcomes/Goals 1. PO intake continue to meet at least 75% of estimated nutritional needs.
[2016-06-16] MEDS: Oxybutynin Chloride 5 mg ER Tab PO SCH (20:17)
--- NOTE | 2016-06-17 03:25 | Progress Notes ---
DATE: 06/16/2016 Case was discussed with staff of the patient, reviewed records. The patient refused to take the Haldol yesterday, though she said she will take it to ____ with valium. The patient also refused to take the medication today. She is currently on Seroquel and Haldol, so though I did mention to her all the side effects together with the medication nurse and they supplied her with all the copies of the side effects with the medication; however, the patient continues to refuse medication. Actually today when I talked to her, she told me that I have already signed the paperwork for her discharge and then she told me, "I'm not a doctor." I explained to her that we are going to [facility] her, but she was unable to understand that she continues to have very poor insight, psychotic, delusional, unable to make safe plan for self-care and we will be initiating a Riese. I will work with the patient in group therapy, milieu therapy, and adjust medication as needed. JOB# [id number]
[2016-06-17] MEDS: INSULIN ASPART SLIDING SCALE 100 UNITS/ML UNIT SUBQ SCH ×4 (06:30→20:59)
[2016-06-17] MEDS: Multivitamin Tab PO SCH (08:20)
--- NOTE | 2016-06-17 19:55 | Internal Medicine Prog Note ---
Internal Medicine Subjective - Subjective Patient seen and examined:: with staff, chart reviewed Patient is:: awake, verbal, interactive Per staff patient is:: no adverse event, no episodes of fall, confused Internal Medicine Objective - Results Result Diagrams: 06/09/16 18:59 06/09/16 18:59 Recent Labs: Laboratory Last Values WBC 5.3 Th/cmm (4.8-10.8) 06/09/16 18:59 RBC 4.36 Mil/cmm (3.80-5.20) 06/09/16 18:59 Hgb 13.5 gm/dL (11.7-16.1) 06/09/16 18:59 Hct 40.1 % (35.0-45.0) 06/09/16 18:59 MCV 92.0 fl (81-100) 06/09/16 18:59 MCH 30.9 pg (27.0-31.0) 06/09/16 18:59 MCHC Differential 33.6 pg (28.0-36.0) 06/09/16 18:59 RDW 13.3 % (11.5-20.0) 06/09/16 18:59 Plt Count 182 Th/cmm (150-400) 06/09/16 18:59 MPV 8.2 fl 06/09/16 18:59 Neutrophils % 53.3 % (40.0-80.0) 06/09/16 18:59 Lymphocytes % 34.2 % (20.0-50.0) 06/09/16 18:59 Monocytes % 10.2 % (2.0-10.0) H 06/09/16 18:59 Eosinophils % 2.1 % (0.0-5.0) 06/09/16 18:59 Basophils % 0.2 % (0.0-2.0) 06/09/16 18:59 Sodium 137 mEq/L (136-145) 06/09/16 18:59 Potassium 4.2 mEq/L (3.5-5.1) 06/09/16 18:59 Chloride 102 mEq/L (98-107) 06/09/16 18:59 Carbon Dioxide 27.6 mEq/L (21.0-31.0) 06/09/16 18:59 Anion Gap 11.6 (7.0-16.0) 06/09/16 18:59 BUN 19 mg/dL (7-25) 06/09/16 18:59 Creatinine 0.7 mg/dL (0.6-1.2) 06/09/16 18:59 Est GFR ( Amer) TNP 06/09/16 18:59 Est GFR (Non-Af Amer) TNP 06/09/16 18:59 BUN/Creatinine Ratio 27.1 06/09/16 18:59 Glucose 104 mg/dL (70-105) 06/09/16 18:59 POC Glucose 90 MG/DL (70 - 105) 06/17/16 17:41 Calcium 9.1 mg/dL (8.6-10.3) 06/09/16 18:59 Triglycerides 111 mg/dL (<150) 06/09/16 18:59 Cholesterol 210 mg/dL (<200) H 06/09/16 18:59 LDL Cholesterol Direct 129 mg/dL (75-193) 06/09/16 18:59 HDL Cholesterol 65 mg/dL (23-92) 06/09/16 18:59 TSH 0.78 uIU/ml (0.34-5.60) 06/09/16 18:59 Urine Source CLEAN C 06/09/16 19:00 Urine Color YELLOW 06/09/16 19:00 Urine Clarity CLEAR (CLEAR) 06/09/16 19:00 Urine pH 6.5 06/09/16 19:00 Ur Specific [place] 1.015 (1.005-1.030) 06/09/16 19:00 Urine Protein NEGATIVE mg/dL (NEGATIVE) 06/09/16 19:00 Urine Glucose (UA) NEGATIVE mg/dL (NEGATIVE) 06/09/16 19:00 Urine Ketones NEGATIVE mg/dL (NEGATIVE) 06/09/16 19:00 Urine Blood NEGATIVE (NEGATIVE) 06/09/16 19:00 Urine Nitrate NEGATIVE (NEGATIVE) 06/09/16 19:00 Urine Bilirubin NEGATIVE (NEGATIVE) 06/09/16 19:00 Urine Urobilinogen 0.2 E.U./dL (0.2 - 1.0) 06/09/16 19:00 Ur Leukocyte Esterase NEGATIVE (NEGATIVE) 06/09/16 19:00 Urine RBC NONE SEEN /hpf (0-5) 06/09/16 19:00 Urine WBC NONE SEEN /hpf (0-5) 06/09/16 19:00 Ur Epithelial Cells NONE SEEN /lpf (FEW) 06/09/16 19:00 Urine Bacteria NONE SEEN /hpf (NONE SEEN) 06/09/16 19:00 RPR NONREACTIVE (NONREACTIVE) 06/09/16 18:59 Hepatitis A IgM Ab Negative (Negative) 06/09/16 18:59 Hep Bs Antigen Negative (Negative) 06/09/16 18:59 Hep B Core IgM Ab Negative (Negative) 06/09/16 18:59 Hepatitis C Antibody 0.1 s/co ratio (0.0-0.9) 06/09/16 18:59 - Physical Exam Vitals and I&O: Vital Signs Temp 97 F 06/17/16 18:21 Pulse 80 06/17/16 18:21 Resp 20 06/17/16 18:21 BP 132/66 06/17/16 18:21 Pulse Ox 97 06/17/16 18:21 Intake & Output 06/17/16 06/17/16 06/18/16 06:59 18:59 06:59 Intake Total 850 Balance 850 Intake: Oral 850 Other: # Voids 2 # Bowel Movements 1 Stool Characteristics Formed Active Medications: Current Medications Acetaminophen (Tylenol) 650 mg PO Q4HR PRN PRN Reason: Pain Stop: 08/08/16 20:51 Al Hydrox/Mg Hydrox/Simethicone (Maalox) 30 ml PO Q4HR PRN PRN Reason: GI DISTRESS Stop: 08/08/16 20:51 Bisacodyl (Dulcolax 10 Mg Supp) 10 mg RC DAILY PRN PRN Reason: Constipation Stop: 08/08/16 20:51 Carbidopa/Levodopa (Sinemet 25 Mg-250 Mg) 1 tab PO QID EMILY Stop: 08/08/16 20:59 Last Admin: 06/17/16 16:06 Dose: Not Given Donepezil HCl (Aricept) 10 mg PO HS EMILY Stop: 08/08/16 20:59 Last Admin: 06/16/16 20:17 Dose: Not Given Enalapril Maleate (Vasotec) 10 mg PO DAILY EMILY Stop: 08/09/16 08:59 Last Admin: 06/17/16 08:19 Dose: Not Given Gabapentin (Neurontin) 100 mg PO BID [facility] Stop: 08/09/16 08:59 Last Admin: 06/17/16 16:06 Dose: Not Given Haloperidol (Haldol) 2 mg PO DAILY EMILY PRN Reason: Protocol Stop: 08/14/16 12:14 Last Admin: 06/17/16 08:20 Dose: Not Given Insulin Aspart (Novolog Insulin Sliding Scale) 0 units SUBQ ACHS EMILY PRN Reason: Protocol Stop: 08/08/16 20:59 Last Admin: 06/17/16 17:50 Dose: Not Given Lorazepam (Ativan) 0.5 mg PO Q6H PRN; Protocol PRN Reason: Agitation Stop: 08/08/16 20:51 Magnesium Hydroxide (Milk Of Magnesia) 30 ml PO DAILY PRN PRN Reason: Constipation Stop: 08/08/16 20:51 Memantine (Namenda) 10 mg PO BID EMILY Stop: 08/09/16 08:59 Last Admin: 06/17/16 16:06 Dose: Not Given Multivitamins/Vitamin C (Theragran) 1 tab PO DAILY EMILY Stop: 08/09/16 08:59 Last Admin: 06/17/16 08:20 Dose: Not Given Oxybutynin Chloride (Ditropan Xl) 5 mg PO HS EMILY Stop: 08/08/16 20:59 Last Admin: 06/16/16 20:17 Dose: Not Given Phenytoin (Dilantin) 100 mg PO TID EMILY Stop: 08/08/16 20:59 Last Admin: 06/17/16 13:04 Dose: Not Given Pioglitazone HCl (Actos) 30 mg PO DAILY EMILY Stop: 08/09/16 08:59 Last Admin: 06/17/16 08:20 Dose: Not Given Quetiapine Fumarate 200 mg/ (Quetiapine Fumarate 25 mg) 225 mg PO HS EMILY Stop: 08/09/16 20:59 Last Admin: 06/16/16 20:17 Dose: Not Given HEENT: NC/AT, PERRLA, EOMI Neck: Supple, No JVD Lungs: CTAB Cardiovascular: Normal S1, Normal S2 Abdomen: soft non-tender, non-distended, positive bowel sound Extremities: excoriation Neurological: no change - Procedures Procedures: Procedures Procedure Code Date OTHER GROUP THERAPY 94.44 08/26/14 Internal Medicine Assmt/Plan - Assessment Assessment: dm htn inc chol debility - Plan Plan: cont on ada iss cont on bp medsd dw rn Nutritional Asmnt/Malnutr-PDOC - Dietary Evaluation Malnutrition Findings (Please click <Entered> for more info): Nutritional Asmnt/Malnutrition Start: 06/14/16 14: 55 Text: Status: Complete Freq: Document 06/14/16 14:55 GSUN (Rec: 06/14/16 15:06 GSUN [email or web address]) Nutritional Asmnt/Malnutrition Patient General Information Nutritional Screening Moderate Risk Screening Diagnosis Acute exacerbation of psychotic disorder Pertinent Medical Hx/Surgical Hx Parkinson's disease, COPD, DJD , HTN, seizure disorder, dementia, hyperlipidemia, GERD , DM Subjective Information 80 year old female from SNF. Pt was asleep during visit, unable to be woken up. Observed lunch tray 100% finished at bedside. Avg PO itnake 100% of meals since adm . Per nursing staff and RN notes, pt is orientated to self only, has good appetite, no nutritional cocnerns at this time. CBW bedscale 179. 7lb, questionable, EMR record 169lb. Current Diet Order/ Nutrition Support Chopped, MOISES, CCHO Pertinent Medications Maalox, Novolog, MOM, Theragran Pertinent Labs POC glucose WNL past 4 days, with 1 elevated level of 115H. Nutritional Hx/Data Height 1.78 m Height (Calculated Centimeters) 177.8 Current Weight (lbs) 76.657 kg Weight (Calculated Kilograms) 76.7 Weight (Calculated Grams) 94989.1 [place] Body Weight 150 Weight Status Approriate GI Symptoms Food Allergies Yes Cultural/Ethnic/Mu-Ism Belief Allergies to blueberry Usual diet at home [facility] : mech soft, MOISES, CCHO Skin Integrity/Comment: Leandro 20. Skin intact. Current %PO Good (75-100%) Estimated Nutritional Goals BEE in Kcals: Using Current wt Calories/Kcals/Kg CBW 169lb/76.7kg Kcals Calculated 1918-2301kcal (25-30kcal/kg) Protein: Using Current wt Protein Calculated 77g (1g/kg) Fluid: ml 1918-2301ml (1ml/kcal) Nutritional Problem 1. Problem Problem Inadequate carbohydrate intake related to Etiology estimated nutritional needs aeb Signs/Symptoms: [address] does not provide to meet 100% of estimated nutritional needs. Intervention/Recommendation Comments 1. Recommend [id number]. Current diet order does not provide to meet 100% of estimated nutritional needs. POC glucose WNL. Avg PO intake is adequate. Expected Outcomes/Goals Expected Outcomes/Goals 1. PO intake continue to meet at least 75% of estimated nutritional needs.
[2016-06-17] MEDS: Oxybutynin Chloride 5 mg ER Tab PO SCH (21:00)
--- NOTE | 2016-06-17 23:31 | Progress Notes ---
DATE: 06/17/2016 Case was discussed with staff of the patient, reviewed records. The patient today reports like when I asked her about why she is not taking her medication, she said no she will take it and I asked the staff to go give it to her, so far they are in the process and trying to give to and this has been happening almost ____ often. She will say she will take the medications, thereafter refuse. We are supposed to have a [facility] hearing, but they have not scheduled it yet though I was hoping it would have been today. She is sleeping well. She is eating well, feeding herself. Continues to believe I am not a doctor, continues to be unpredictable, impulsive. Continues to need redirection. She has been noncompliant with the medication. She does have a hepatitis panel. Results are negative. Urinalysis is within normal range and TSH is within normal range. Chemistry panel was high. ____ lipid profile shows high cholesterol. The rest is within normal range. Chemistry panel within normal range. CBC showed high monocyte and we will continue to work with the patient in group therapy, milieu therapy and adjust medication as needed. JOB# [id number]
[2016-06-18] MEDS: INSULIN ASPART SLIDING SCALE 100 UNITS/ML UNIT SUBQ SCH ×4 (07:05→21:30)
[2016-06-18] MEDS: Multivitamin Tab PO SCH (09:09)
--- NOTE | 2016-06-18 15:32 | Internal Medicine Prog Note ---
Internal Medicine Subjective - Subjective Patient seen and examined:: with staff, chart reviewed Patient is:: awake, verbal, interactive Per staff patient is:: no adverse event, confused Internal Medicine Objective - Results Result Diagrams: 06/09/16 18:59 06/09/16 18:59 Recent Labs: Laboratory Last Values WBC 5.3 Th/cmm (4.8-10.8) 06/09/16 18:59 RBC 4.36 Mil/cmm (3.80-5.20) 06/09/16 18:59 Hgb 13.5 gm/dL (11.7-16.1) 06/09/16 18:59 Hct 40.1 % (35.0-45.0) 06/09/16 18:59 MCV 92.0 fl (81-100) 06/09/16 18:59 MCH 30.9 pg (27.0-31.0) 06/09/16 18:59 MCHC Differential 33.6 pg (28.0-36.0) 06/09/16 18:59 RDW 13.3 % (11.5-20.0) 06/09/16 18:59 Plt Count 182 Th/cmm (150-400) 06/09/16 18:59 MPV 8.2 fl 06/09/16 18:59 Neutrophils % 53.3 % (40.0-80.0) 06/09/16 18:59 Lymphocytes % 34.2 % (20.0-50.0) 06/09/16 18:59 Monocytes % 10.2 % (2.0-10.0) H 06/09/16 18:59 Eosinophils % 2.1 % (0.0-5.0) 06/09/16 18:59 Basophils % 0.2 % (0.0-2.0) 06/09/16 18:59 Sodium 137 mEq/L (136-145) 06/09/16 18:59 Potassium 4.2 mEq/L (3.5-5.1) 06/09/16 18:59 Chloride 102 mEq/L (98-107) 06/09/16 18:59 Carbon Dioxide 27.6 mEq/L (21.0-31.0) 06/09/16 18:59 Anion Gap 11.6 (7.0-16.0) 06/09/16 18:59 BUN 19 mg/dL (7-25) 06/09/16 18:59 Creatinine 0.7 mg/dL (0.6-1.2) 06/09/16 18:59 Est GFR ( Amer) TNP 06/09/16 18:59 Est GFR (Non-Af Amer) TNP 06/09/16 18:59 BUN/Creatinine Ratio 27.1 06/09/16 18:59 Glucose 104 mg/dL (70-105) 06/09/16 18:59 POC Glucose 88 MG/DL (70 - 105) 06/18/16 12:08 Calcium 9.1 mg/dL (8.6-10.3) 06/09/16 18:59 Triglycerides 111 mg/dL (<150) 06/09/16 18:59 Cholesterol 210 mg/dL (<200) H 06/09/16 18:59 LDL Cholesterol Direct 129 mg/dL (75-193) 06/09/16 18:59 HDL Cholesterol 65 mg/dL (23-92) 06/09/16 18:59 TSH 0.78 uIU/ml (0.34-5.60) 06/09/16 18:59 Urine Source CLEAN C 06/09/16 19:00 Urine Color YELLOW 06/09/16 19:00 Urine Clarity CLEAR (CLEAR) 06/09/16 19:00 Urine pH 6.5 06/09/16 19:00 Ur Specific [place] 1.015 (1.005-1.030) 06/09/16 19:00 Urine Protein NEGATIVE mg/dL (NEGATIVE) 06/09/16 19:00 Urine Glucose (UA) NEGATIVE mg/dL (NEGATIVE) 06/09/16 19:00 Urine Ketones NEGATIVE mg/dL (NEGATIVE) 06/09/16 19:00 Urine Blood NEGATIVE (NEGATIVE) 06/09/16 19:00 Urine Nitrate NEGATIVE (NEGATIVE) 06/09/16 19:00 Urine Bilirubin NEGATIVE (NEGATIVE) 06/09/16 19:00 Urine Urobilinogen 0.2 E.U./dL (0.2 - 1.0) 06/09/16 19:00 Ur Leukocyte Esterase NEGATIVE (NEGATIVE) 06/09/16 19:00 Urine RBC NONE SEEN /hpf (0-5) 06/09/16 19:00 Urine WBC NONE SEEN /hpf (0-5) 06/09/16 19:00 Ur Epithelial Cells NONE SEEN /lpf (FEW) 06/09/16 19:00 Urine Bacteria NONE SEEN /hpf (NONE SEEN) 06/09/16 19:00 RPR NONREACTIVE (NONREACTIVE) 06/09/16 18:59 Hepatitis A IgM Ab Negative (Negative) 06/09/16 18:59 Hep Bs Antigen Negative (Negative) 06/09/16 18:59 Hep B Core IgM Ab Negative (Negative) 06/09/16 18:59 Hepatitis C Antibody 0.1 s/co ratio (0.0-0.9) 06/09/16 18:59 - Physical Exam Vitals and I&O: Vital Signs Temp 98.4 F 06/18/16 14:00 Pulse 74 06/18/16 14:00 Resp 20 06/18/16 14:00 BP 151/73 06/18/16 14:00 Pulse Ox 96 06/18/16 14:00 Intake & Output 06/17/16 06/18/16 06/18/16 18:59 06:59 18:59 Intake Total 850 Balance 850 Intake: Oral 850 Other: # Voids 2 # Bowel Movements 1 Stool Characteristics Formed Formed Active Medications: Current Medications Acetaminophen (Tylenol) 650 mg PO Q4HR PRN PRN Reason: Pain Stop: 08/08/16 20:51 Al Hydrox/Mg Hydrox/Simethicone (Maalox) 30 ml PO Q4HR PRN PRN Reason: GI DISTRESS Stop: 08/08/16 20:51 Bisacodyl (Dulcolax 10 Mg Supp) 10 mg RC DAILY PRN PRN Reason: Constipation Stop: 08/08/16 20:51 Carbidopa/Levodopa (Sinemet 25 Mg-250 Mg) 1 tab PO QID EMILY Stop: 08/08/16 20:59 Last Admin: 06/18/16 12:39 Dose: Not Given Donepezil HCl (Aricept) 10 mg PO HS EMILY Stop: 08/08/16 20:59 Last Admin: 06/17/16 21:00 Dose: Not Given Enalapril Maleate (Vasotec) 10 mg PO DAILY EMILY Stop: 08/09/16 08:59 Last Admin: 06/18/16 09:09 Dose: Not Given Gabapentin (Neurontin) 100 mg PO BID EMILY Stop: 08/09/16 08:59 Last Admin: 06/18/16 09:09 Dose: Not Given Haloperidol (Haldol) 2 mg PO DAILY EMILY PRN Reason: Protocol Stop: 08/14/16 12:14 Last Admin: 06/18/16 09:08 Dose: 2 mg Haloperidol Decanoate (Haldol Dec) 50 mg IM QMONTH EMILY PRN Reason: Protocol Stop: 08/17/16 14:59 Insulin Aspart (Novolog Insulin Sliding Scale) 0 units SUBQ ACHS EMILY PRN Reason: Protocol Stop: 08/08/16 20:59 Last Admin: 06/18/16 12:39 Dose: Not Given Lorazepam (Ativan) 0.5 mg PO Q6H PRN; Protocol PRN Reason: Agitation Stop: 08/08/16 20:51 Magnesium Hydroxide (Milk Of Magnesia) 30 ml PO DAILY PRN PRN Reason: Constipation Stop: 08/08/16 20:51 Memantine (Namenda) 10 mg PO BID [facility] Stop: 08/09/16 08:59 Last Admin: 06/18/16 09:09 Dose: Not Given Multivitamins/Vitamin C (Theragran) 1 tab PO DAILY [facility] Stop: 08/09/16 08:59 Last Admin: 06/18/16 09:09 Dose: Not Given Oxybutynin Chloride (Ditropan Xl) 5 mg PO HS [facility] Stop: 08/08/16 20:59 Last Admin: 06/17/16 21:00 Dose: Not Given Phenytoin (Dilantin) 100 mg PO TID EMILY Stop: 08/08/16 20:59 Last Admin: 06/18/16 09:09 Dose: Not Given Pioglitazone HCl (Actos) 30 mg PO DAILY [facility] Stop: 08/09/16 08:59 Last Admin: 06/18/16 09:09 Dose: Not Given Quetiapine Fumarate 200 mg/ (Quetiapine Fumarate 25 mg) 225 mg PO HS [facility] Stop: 08/09/16 20:59 Last Admin: 06/17/16 21:00 Dose: Not Given General: demented HEENT: NC/AT, PERRLA Neck: Supple, No JVD Lungs: CTAB Cardiovascular: RRR, Normal S1, Normal S2 Abdomen: soft non-tender, globular, positive bowel sound Extremities: excoriation Neurological: no change - Procedures Procedures: Procedures Procedure Code Date OTHER GROUP THERAPY 94.44 08/26/14 Internal Medicine Assmt/Plan - Assessment Assessment: dm htn inc chol debility - Plan Plan: cont on ada iss cont on bp medsd neri rn Nutritional Asmnt/Malnutr-PDOC - Dietary Evaluation Malnutrition Findings (Please click <Entered> for more info): Nutritional Asmnt/Malnutrition Start: 06/14/16 14: 55 Text: Status: Complete Freq: Document 06/14/16 14:55 GSUN (Rec: 06/14/16 15:06 [email or web address] [email or web address]) Nutritional Asmnt/Malnutrition Patient General Information Nutritional Screening Moderate Risk Screening Diagnosis Acute exacerbation of psychotic disorder Pertinent Medical Hx/Surgical Hx Parkinson's disease, COPD, DJD , HTN, seizure disorder, dementia, hyperlipidemia, GERD , DM Subjective Information 80 year old female from SNF. Pt was asleep during visit, unable to be woken up. Observed lunch tray 100% finished at bedside. Avg PO itnake 100% of meals since adm . Per nursing staff and RN notes, pt is orientated to self only, has good appetite, no nutritional cocnerns at this time. CBW bedscale 179. 7lb, questionable, EMR record 169lb. Current Diet Order/ Nutrition Support Chopped, MOISES, CCHO Pertinent Medications Maalox, Novolog, MOM, Theragran Pertinent Labs POC glucose WNL past 4 days, with 1 elevated level of 115H. Nutritional Hx/Data Height 1.78 m Height (Calculated Centimeters) 177.8 Current Weight (lbs) 76.657 kg Weight (Calculated Kilograms) 76.7 Weight (Calculated Grams) 69878.1 [place] Body Weight 150 Weight Status Approriate GI Symptoms Food Allergies Yes Cultural/Ethnic/Restoration Belief Allergies to blueberry Usual diet at home [facility] : [facility] soft, MOISES, CCHO Skin Integrity/Comment: Leandro 20. Skin intact. Current %PO Good (75-100%) Estimated Nutritional Goals BEE in Kcals: Using Current wt Calories/Kcals/Kg CBW 169lb/76.7kg Kcals Calculated 1918-2301kcal (25-30kcal/kg) Protein: Using Current wt Protein Calculated 77g (1g/kg) Fluid: ml 1918-2301ml (1ml/kcal) Nutritional Problem 1. Problem Problem Inadequate carbohydrate intake related to Etiology estimated nutritional needs aeb Signs/Symptoms: [id number] does not provide to meet 100% of estimated nutritional needs. Intervention/Recommendation Comments 1. Recommend [id number]. Current diet order does not provide to meet 100% of estimated nutritional needs. POC glucose WNL. Avg PO intake is adequate. Expected Outcomes/Goals Expected Outcomes/Goals 1. PO intake continue to meet at least 75% of estimated nutritional needs.
[2016-06-18] MEDS: Oxybutynin Chloride 5 mg ER Tab PO SCH (21:31)
--- NOTE | 2016-06-19 04:33 | Progress Notes ---
DATE: 06/18/2016 Case was discussed with staff of the patient, reviewed records. The patient did agree to take her Haldol today, so we will proceed with Haldol Decanoate. The patient seems to have now better insight that she is taking her Haldol Decanoate. The patient has no side effects with the Haldol. She seems to be showing some progress. She is able to smile and she is a little bit more appropriate, and no side effects with the medication, no sedation, no nausea, no extrapyramidal symptoms. We will continue to work with the patient in group therapy, milieu therapy, and adjust the medication as needed. JOB# [id number]
[2016-06-19] MEDS: INSULIN ASPART SLIDING SCALE 100 UNITS/ML UNIT SUBQ SCH ×4 (07:00→20:41)
[2016-06-19] MEDS: Multivitamin Tab PO SCH (09:48)
[2016-06-19] MEDS: Oxybutynin Chloride 5 mg ER Tab PO SCH (20:42)
--- NOTE | 2016-06-19 21:48 | Internal Medicine Prog Note ---
Internal Medicine Subjective - Subjective Patient seen and examined:: with staff, chart reviewed Patient is:: awake, verbal, interactive Per staff patient is:: no adverse event, confused Internal Medicine Objective - Results Result Diagrams: 06/09/16 18:59 06/09/16 18:59 Recent Labs: Laboratory Last Values WBC 5.3 Th/cmm (4.8-10.8) 06/09/16 18:59 RBC 4.36 Mil/cmm (3.80-5.20) 06/09/16 18:59 Hgb 13.5 gm/dL (11.7-16.1) 06/09/16 18:59 Hct 40.1 % (35.0-45.0) 06/09/16 18:59 MCV 92.0 fl (81-100) 06/09/16 18:59 MCH 30.9 pg (27.0-31.0) 06/09/16 18:59 MCHC Differential 33.6 pg (28.0-36.0) 06/09/16 18:59 RDW 13.3 % (11.5-20.0) 06/09/16 18:59 Plt Count 182 Th/cmm (150-400) 06/09/16 18:59 MPV 8.2 fl 06/09/16 18:59 Neutrophils % 53.3 % (40.0-80.0) 06/09/16 18:59 Lymphocytes % 34.2 % (20.0-50.0) 06/09/16 18:59 Monocytes % 10.2 % (2.0-10.0) H 06/09/16 18:59 Eosinophils % 2.1 % (0.0-5.0) 06/09/16 18:59 Basophils % 0.2 % (0.0-2.0) 06/09/16 18:59 Sodium 137 mEq/L (136-145) 06/09/16 18:59 Potassium 4.2 mEq/L (3.5-5.1) 06/09/16 18:59 Chloride 102 mEq/L (98-107) 06/09/16 18:59 Carbon Dioxide 27.6 mEq/L (21.0-31.0) 06/09/16 18:59 Anion Gap 11.6 (7.0-16.0) 06/09/16 18:59 BUN 19 mg/dL (7-25) 06/09/16 18:59 Creatinine 0.7 mg/dL (0.6-1.2) 06/09/16 18:59 Est GFR ( Amer) TNP 06/09/16 18:59 Est GFR (Non-Af Amer) TNP 06/09/16 18:59 BUN/Creatinine Ratio 27.1 06/09/16 18:59 Glucose 104 mg/dL (70-105) 06/09/16 18:59 POC Glucose 100 MG/DL (70 - 105) 06/19/16 20:06 Calcium 9.1 mg/dL (8.6-10.3) 06/09/16 18:59 Triglycerides 111 mg/dL (<150) 06/09/16 18:59 Cholesterol 210 mg/dL (<200) H 06/09/16 18:59 LDL Cholesterol Direct 129 mg/dL (75-193) 06/09/16 18:59 HDL Cholesterol 65 mg/dL (23-92) 06/09/16 18:59 TSH 0.78 uIU/ml (0.34-5.60) 06/09/16 18:59 Urine Source CLEAN C 06/09/16 19:00 Urine Color YELLOW 06/09/16 19:00 Urine Clarity CLEAR (CLEAR) 06/09/16 19:00 Urine pH 6.5 06/09/16 19:00 Ur Specific [place] 1.015 (1.005-1.030) 06/09/16 19:00 Urine Protein NEGATIVE mg/dL (NEGATIVE) 06/09/16 19:00 Urine Glucose (UA) NEGATIVE mg/dL (NEGATIVE) 06/09/16 19:00 Urine Ketones NEGATIVE mg/dL (NEGATIVE) 06/09/16 19:00 Urine Blood NEGATIVE (NEGATIVE) 06/09/16 19:00 Urine Nitrate NEGATIVE (NEGATIVE) 06/09/16 19:00 Urine Bilirubin NEGATIVE (NEGATIVE) 06/09/16 19:00 Urine Urobilinogen 0.2 E.U./dL (0.2 - 1.0) 06/09/16 19:00 Ur Leukocyte Esterase NEGATIVE (NEGATIVE) 06/09/16 19:00 Urine RBC NONE SEEN /hpf (0-5) 06/09/16 19:00 Urine WBC NONE SEEN /hpf (0-5) 06/09/16 19:00 Ur Epithelial Cells NONE SEEN /lpf (FEW) 06/09/16 19:00 Urine Bacteria NONE SEEN /hpf (NONE SEEN) 06/09/16 19:00 RPR NONREACTIVE (NONREACTIVE) 06/09/16 18:59 Hepatitis A IgM Ab Negative (Negative) 06/09/16 18:59 Hep Bs Antigen Negative (Negative) 06/09/16 18:59 Hep B Core IgM Ab Negative (Negative) 06/09/16 18:59 Hepatitis C Antibody 0.1 s/co ratio (0.0-0.9) 06/09/16 18:59 - Physical Exam Vitals and I&O: Vital Signs Temp 98.2 F 06/19/16 20:15 Pulse 75 06/19/16 20:15 Resp 19 06/19/16 20:15 BP 148/75 06/19/16 20:15 Pulse Ox 98 06/19/16 20:15 Intake & Output 06/19/16 06/19/16 06/20/16 06:59 18:59 06:59 Intake Total 950 240 Balance 950 240 Intake: Oral 950 240 Other: # Voids 4 1 # Bowel Movements 1 Active Medications: Current Medications Acetaminophen (Tylenol) 650 mg PO Q4HR PRN PRN Reason: Pain Stop: 08/08/16 20:51 Al Hydrox/Mg Hydrox/Simethicone (Maalox) 30 ml PO Q4HR PRN PRN Reason: GI DISTRESS Stop: 08/08/16 20:51 Bisacodyl (Dulcolax 10 Mg Supp) 10 mg RC DAILY PRN PRN Reason: Constipation Stop: 08/08/16 20:51 Carbidopa/Levodopa (Sinemet 25 Mg-250 Mg) 1 tab PO QID EMILY Stop: 08/08/16 20:59 Last Admin: 06/19/16 20:42 Dose: Not Given Donepezil HCl (Aricept) 10 mg PO HS EMILY Stop: 08/08/16 20:59 Last Admin: 06/19/16 20:42 Dose: Not Given Enalapril Maleate (Vasotec) 10 mg PO DAILY EMILY Stop: 08/09/16 08:59 Last Admin: 06/19/16 09:55 Dose: 10 mg Gabapentin (Neurontin) 100 mg PO BID EMILY Stop: 08/09/16 08:59 Last Admin: 06/19/16 16:47 Dose: Not Given Haloperidol (Haldol) 2 mg PO DAILY EMILY PRN Reason: Protocol Stop: 08/14/16 12:14 Last Admin: 06/19/16 09:48 Dose: 2 mg Haloperidol Decanoate (Haldol Dec) 50 mg IM QMONTH EMILY PRN Reason: Protocol Stop: 08/17/16 14:59 Last Admin: 06/18/16 16:38 Dose: Not Given Insulin Aspart (Novolog Insulin Sliding Scale) 0 units SUBQ ACHS EMILY PRN Reason: Protocol Stop: 08/08/16 20:59 Last Admin: 06/19/16 20:41 Dose: Not Given Lorazepam (Ativan) 0.5 mg PO Q6H PRN; Protocol PRN Reason: Agitation Stop: 08/08/16 20:51 Magnesium Hydroxide (Milk Of Magnesia) 30 ml PO DAILY PRN PRN Reason: Constipation Stop: 08/08/16 20:51 Memantine (Namenda) 10 mg PO BID EMILY Stop: 08/09/16 08:59 Last Admin: 06/19/16 16:47 Dose: Not Given Multivitamins/Vitamin C (Theragran) 1 tab PO DAILY EMILY Stop: 08/09/16 08:59 Last Admin: 06/19/16 09:48 Dose: 1 tab Oxybutynin Chloride (Ditropan Xl) 5 mg PO HS [facility] Stop: 08/08/16 20:59 Last Admin: 06/19/16 20:42 Dose: Not Given Phenytoin (Dilantin) 100 mg PO TID EMILY Stop: 08/08/16 20:59 Last Admin: 06/19/16 20:42 Dose: Not Given Pioglitazone HCl (Actos) 30 mg PO DAILY EMILY Stop: 08/09/16 08:59 Last Admin: 06/19/16 09:47 Dose: 30 mg Quetiapine Fumarate 200 mg/ (Quetiapine Fumarate 25 mg) 225 mg PO HS [facility] Stop: 08/09/16 20:59 Last Admin: 06/19/16 20:42 Dose: Not Given General: demented HEENT: NC/AT, PERRLA Neck: Supple Lungs: CTAB Cardiovascular: RRR, Normal S1, Normal S2 Abdomen: soft non-tender, globular, positive bowel sound Extremities: excoriation, contracture Neurological: no change - Procedures Procedures: Procedures Procedure Code Date OTHER GROUP THERAPY 94.44 08/26/14 Internal Medicine Assmt/Plan - Assessment Assessment: dm htn inc chol debility - Plan Plan: cont on ada iss cont on bp medsd dw rn Nutritional Asmnt/Malnutr-PDOC - Dietary Evaluation Malnutrition Findings (Please click <Entered> for more info): Nutritional Asmnt/Malnutrition Start: 06/14/16 14: 55 Text: Status: Complete Freq: Document 06/14/16 14:55 GSUN (Rec: 06/14/16 15:06 GSUN [email or web address]) Nutritional Asmnt/Malnutrition Patient General Information Nutritional Screening Moderate Risk Screening Diagnosis Acute exacerbation of psychotic disorder Pertinent Medical Hx/Surgical Hx Parkinson's disease, COPD, DJD , HTN, seizure disorder, dementia, hyperlipidemia, GERD , DM Subjective Information 80 year old female from SNF. Pt was asleep during visit, unable to be woken up. Observed lunch tray 100% finished at bedside. Avg PO itnake 100% of meals since adm . Per nursing staff and RN notes, pt is orientated to self only, has good appetite, no nutritional cocnerns at this time. CBW bedscale 179. 7lb, questionable, EMR record 169lb. Current Diet Order/ Nutrition Support Chopped, MOISES, CCHO Pertinent Medications Maalox, Novolog, MOM, Theragran Pertinent Labs POC glucose WNL past 4 days, with 1 elevated level of 115H. Nutritional Hx/Data Height 1.78 m Height (Calculated Centimeters) 177.8 Current Weight (lbs) 76.657 kg Weight (Calculated Kilograms) 76.7 Weight (Calculated Grams) 78568.1 [place] Body Weight 150 Weight Status Approriate GI Symptoms Food Allergies Yes Cultural/Ethnic/Sikhism Belief Allergies to blueberry Usual diet at home [facility] : [facility] soft, MOISES, CCHO Skin Integrity/Comment: Leandro [place]. Skin intact. Current %PO Good (75-100%) Estimated Nutritional Goals BEE in Kcals: Using Current wt Calories/Kcals/Kg CBW 169lb/76.7kg Kcals Calculated 1918-2301kcal (25-30kcal/kg) Protein: Using Current wt Protein Calculated 77g (1g/kg) Fluid: ml 1918-2301ml (1ml/kcal) Nutritional Problem 1. Problem Problem Inadequate carbohydrate intake related to Etiology estimated nutritional needs aeb Signs/Symptoms: [id number] does not provide to meet 100% of estimated nutritional needs. Intervention/Recommendation Comments 1. Recommend [id number]. Current diet order does not provide to meet 100% of estimated nutritional needs. POC glucose WNL. Avg PO intake is adequate. Expected Outcomes/Goals Expected Outcomes/Goals 1. PO intake continue to meet at least 75% of estimated nutritional needs.
--- NOTE | 2016-06-20 03:34 | Progress Notes ---
DATE: 06/19/[address] Crystal. SUBJECTIVE: The patient was seen and evaluated. The patient's chart was reviewed. The patient is an 80-year-old female who was initially brought in here after she was transferred from [facility] for agitation and psychotic behavior and refusing medications. Overnight nursing staff reported that the patient continues to be hyperverbal, verbally aggressive, cursing, disorganized, and easily agitated upon approach. OBJECTIVE: Today, on [id number] evaluation, the patient reports ____ and unable to engage in linear conversation. MENTAL STATUS EXAMINATION: Continues to be disorganized, agitated. ASSESSMENT AND PLAN: The patient is an 80-year-old female with unspecified psychotic disorder and neurocognitive impairment whose adjustments of the Seroquel continue to assist with the patient's psychotic thought process. We will continue with the primary psychiatric treatment plan and goals which include the Haldol decanoate at 50 mg IM q. monthly with the Seroquel and also Aricept and also Haldol she is currently on 2 mg a day. At this point, unclear which medications being cross-titrated would allow for medication ____ the primary psychiatric treatment plan is to continue consolidating the medications. JOB# [id number]
[2016-06-20] MEDS: INSULIN ASPART SLIDING SCALE 100 UNITS/ML UNIT SUBQ SCH ×4 (06:34→21:07)
[2016-06-20] MEDS: Multivitamin Tab PO SCH (09:50)
[2016-06-20] MEDS: Oxybutynin Chloride 5 mg ER Tab PO SCH (21:08)
--- NOTE | 2016-06-20 21:20 | Internal Medicine Prog Note ---
Internal Medicine Subjective - Subjective Patient seen and examined:: with staff, chart reviewed Patient is:: awake, verbal, interactive, jocelyn chair Per staff patient is:: no adverse event, no episodes of fall, confused Internal Medicine Objective - Results Result Diagrams: 06/09/16 18:59 06/09/16 18:59 Recent Labs: Laboratory Last Values WBC 5.3 Th/cmm (4.8-10.8) 06/09/16 18:59 RBC 4.36 Mil/cmm (3.80-5.20) 06/09/16 18:59 Hgb 13.5 gm/dL (11.7-16.1) 06/09/16 18:59 Hct 40.1 % (35.0-45.0) 06/09/16 18:59 MCV 92.0 fl (81-100) 06/09/16 18:59 MCH 30.9 pg (27.0-31.0) 06/09/16 18:59 MCHC Differential 33.6 pg (28.0-36.0) 06/09/16 18:59 RDW 13.3 % (11.5-20.0) 06/09/16 18:59 Plt Count 182 Th/cmm (150-400) 06/09/16 18:59 MPV 8.2 fl 06/09/16 18:59 Neutrophils % 53.3 % (40.0-80.0) 06/09/16 18:59 Lymphocytes % 34.2 % (20.0-50.0) 06/09/16 18:59 Monocytes % 10.2 % (2.0-10.0) H 06/09/16 18:59 Eosinophils % 2.1 % (0.0-5.0) 06/09/16 18:59 Basophils % 0.2 % (0.0-2.0) 06/09/16 18:59 Sodium 137 mEq/L (136-145) 06/09/16 18:59 Potassium 4.2 mEq/L (3.5-5.1) 06/09/16 18:59 Chloride 102 mEq/L (98-107) 06/09/16 18:59 Carbon Dioxide 27.6 mEq/L (21.0-31.0) 06/09/16 18:59 Anion Gap 11.6 (7.0-16.0) 06/09/16 18:59 BUN 19 mg/dL (7-25) 06/09/16 18:59 Creatinine 0.7 mg/dL (0.6-1.2) 06/09/16 18:59 Est GFR ( Amer) TNP 06/09/16 18:59 Est GFR (Non-Af Amer) TNP 06/09/16 18:59 BUN/Creatinine Ratio 27.1 06/09/16 18:59 Glucose 104 mg/dL (70-105) 06/09/16 18:59 POC Glucose 127 MG/DL (70 - 105) H 06/20/16 21:07 Calcium 9.1 mg/dL (8.6-10.3) 06/09/16 18:59 Triglycerides 111 mg/dL (<150) 06/09/16 18:59 Cholesterol 210 mg/dL (<200) H 06/09/16 18:59 LDL Cholesterol Direct 129 mg/dL (75-193) 06/09/16 18:59 HDL Cholesterol 65 mg/dL (23-92) 06/09/16 18:59 TSH 0.78 uIU/ml (0.34-5.60) 06/09/16 18:59 Urine Source CLEAN C 06/09/16 19:00 Urine Color YELLOW 06/09/16 19:00 Urine Clarity CLEAR (CLEAR) 06/09/16 19:00 Urine pH 6.5 06/09/16 19:00 Ur Specific [place] 1.015 (1.005-1.030) 06/09/16 19:00 Urine Protein NEGATIVE mg/dL (NEGATIVE) 06/09/16 19:00 Urine Glucose (UA) NEGATIVE mg/dL (NEGATIVE) 06/09/16 19:00 Urine Ketones NEGATIVE mg/dL (NEGATIVE) 06/09/16 19:00 Urine Blood NEGATIVE (NEGATIVE) 06/09/16 19:00 Urine Nitrate NEGATIVE (NEGATIVE) 06/09/16 19:00 Urine Bilirubin NEGATIVE (NEGATIVE) 06/09/16 19:00 Urine Urobilinogen 0.2 E.U./dL (0.2 - 1.0) 06/09/16 19:00 Ur Leukocyte Esterase NEGATIVE (NEGATIVE) 06/09/16 19:00 Urine RBC NONE SEEN /hpf (0-5) 06/09/16 19:00 Urine WBC NONE SEEN /hpf (0-5) 06/09/16 19:00 Ur Epithelial Cells NONE SEEN /lpf (FEW) 06/09/16 19:00 Urine Bacteria NONE SEEN /hpf (NONE SEEN) 06/09/16 19:00 RPR NONREACTIVE (NONREACTIVE) 06/09/16 18:59 Hepatitis A IgM Ab Negative (Negative) 06/09/16 18:59 Hep Bs Antigen Negative (Negative) 06/09/16 18:59 Hep B Core IgM Ab Negative (Negative) 06/09/16 18:59 Hepatitis C Antibody 0.1 s/co ratio (0.0-0.9) 06/09/16 18:59 - Physical Exam Vitals and I&O: Vital Signs Temp 98.7 F 06/20/16 20:40 Pulse 89 06/20/16 20:40 Resp 20 06/20/16 20:40 BP 134/52 06/20/16 20:40 Pulse Ox 95 06/20/16 20:40 Intake & Output 06/20/16 06/20/16 06/21/16 06:59 18:59 06:59 Intake Total 240 1000 240 Balance 240 1000 240 Intake: Oral 240 1000 240 Other: # Voids 1 4 1 # Bowel Movements 1 Active Medications: Current Medications Acetaminophen (Tylenol) 650 mg PO Q4HR PRN PRN Reason: Pain Stop: 08/08/16 20:51 Al Hydrox/Mg Hydrox/Simethicone (Maalox) 30 ml PO Q4HR PRN PRN Reason: GI DISTRESS Stop: 08/08/16 20:51 Bisacodyl (Dulcolax 10 Mg Supp) 10 mg RC DAILY PRN PRN Reason: Constipation Stop: 08/08/16 20:51 Carbidopa/Levodopa (Sinemet 25 Mg-250 Mg) 1 tab PO QID EMILY Stop: 08/08/16 20:59 Last Admin: 06/20/16 21:08 Dose: 1 tab Donepezil HCl (Aricept) 10 mg PO HS EMILY Stop: 08/08/16 20:59 Last Admin: 06/20/16 21:08 Dose: 10 mg Enalapril Maleate (Vasotec) 10 mg PO DAILY EMILY Stop: 08/09/16 08:59 Last Admin: 06/20/16 09:50 Dose: 10 mg Gabapentin (Neurontin) 100 mg PO BID EMILY Stop: 08/09/16 08:59 Last Admin: 06/20/16 17:08 Dose: 100 mg Haloperidol (Haldol) 2 mg PO DAILY EMILY PRN Reason: Protocol Stop: 08/14/16 12:14 Last Admin: 06/20/16 09:50 Dose: 2 mg Haloperidol Decanoate (Haldol Dec) 50 mg IM QMONTH EMILY PRN Reason: Protocol Stop: 08/17/16 14:59 Last Admin: 06/18/16 16:38 Dose: Not Given Insulin Aspart (Novolog Insulin Sliding Scale) 0 units SUBQ ACHS EMILY PRN Reason: Protocol Stop: 08/08/16 20:59 Last Admin: 06/20/16 21:07 Dose: Not Given Lorazepam (Ativan) 0.5 mg PO Q6H PRN; Protocol PRN Reason: Agitation Stop: 08/08/16 20:51 Last Admin: 06/20/16 17:08 Dose: 0.5 mg Magnesium Hydroxide (Milk Of Magnesia) 30 ml PO DAILY PRN PRN Reason: Constipation Stop: 08/08/16 20:51 Memantine (Namenda) 10 mg PO BID EMILY Stop: 08/09/16 08:59 Last Admin: 06/20/16 17:08 Dose: 10 mg Multivitamins/Vitamin C (Theragran) 1 tab PO DAILY EMILY Stop: 08/09/16 08:59 Last Admin: 06/20/16 09:50 Dose: 1 tab Oxybutynin Chloride (Ditropan Xl) 5 mg PO HS EMILY Stop: 08/08/16 20:59 Last Admin: 06/20/16 21:08 Dose: 5 mg Phenytoin (Dilantin) 100 mg PO TID EMILY Stop: 08/08/16 20:59 Last Admin: 06/20/16 21:08 Dose: 100 mg Pioglitazone HCl (Actos) 30 mg PO DAILY EMILY Stop: 08/09/16 08:59 Last Admin: 06/20/16 09:50 Dose: 30 mg Quetiapine Fumarate 200 mg/ (Quetiapine Fumarate 25 mg) 225 mg PO HS EMILY Stop: 08/09/16 20:59 Last Admin: 06/20/16 21:08 Dose: 225 mg General: demented HEENT: NC/AT, PERRLA Neck: Supple, No JVD Lungs: CTAB Cardiovascular: RRR, Normal S1, Normal S2 Abdomen: soft non-tender, positive bowel sound Extremities: excoriation Neurological: no change - Procedures Procedures: Procedures Procedure Code Date OTHER GROUP THERAPY 94.44 08/26/14 Internal Medicine Assmt/Plan - Assessment Assessment: dm htn inc chol debility - Plan Plan: cont on ada iss cont on bp medsd neri rn Nutritional Asmnt/Malnutr-PDOC - Dietary Evaluation Malnutrition Findings (Please click <Entered> for more info): Nutritional Asmnt/Malnutrition Start: 06/14/16 14: 55 Text: Status: Complete Freq: Document 06/14/16 14:55 GSUN (Rec: 06/14/16 15:06 [email or web address] [email or web address]) Nutritional Asmnt/Malnutrition Patient General Information Nutritional Screening Moderate Risk Screening Diagnosis Acute exacerbation of psychotic disorder Pertinent Medical Hx/Surgical Hx Parkinson's disease, COPD, DJD , HTN, seizure disorder, dementia, hyperlipidemia, GERD , DM Subjective Information 80 year old female from SNF. Pt was asleep during visit, unable to be woken up. Observed lunch tray 100% finished at bedside. Avg PO itnake 100% of meals since adm . Per nursing staff and RN notes, pt is orientated to self only, has good appetite, no nutritional cocnerns at this time. CBW bedscale 179. 7lb, questionable, EMR record 169lb. Current Diet Order/ Nutrition Support Chopped, MOISES, CCHO Pertinent Medications Maalox, Novolog, MOM, Theragran Pertinent Labs POC glucose WNL past 4 days, with 1 elevated level of 115H. Nutritional Hx/Data Height 1.78 m Height (Calculated Centimeters) 177.8 Current Weight (lbs) 76.657 kg Weight (Calculated Kilograms) 76.7 Weight (Calculated Grams) 47281.1 [place] Body Weight 150 Weight Status Approriate GI Symptoms Food Allergies Yes Cultural/Ethnic/Adventist Belief Allergies to blueberry Usual diet at home [facility] : [facility] soft, MOISES, CCHO Skin Integrity/Comment: Leandro Larose. Skin intact. Current %PO Good (75-100%) Estimated Nutritional Goals BEE in Kcals: Using Current wt Calories/Kcals/Kg CBW 169lb/76.7kg Kcals Calculated 1918-2301kcal (25-30kcal/kg) Protein: Using Current wt Protein Calculated 77g (1g/kg) Fluid: ml 8-2301ml (1ml/kcal) Nutritional Problem 1. Problem Problem Inadequate carbohydrate intake related to Etiology estimated nutritional needs aeb Signs/Symptoms: [id number] does not provide to meet 100% of estimated nutritional needs. Intervention/Recommendation Comments 1. Recommend [id number]. Current diet order does not provide to meet 100% of estimated nutritional needs. POC glucose WNL. Avg PO intake is adequate. Expected Outcomes/Goals Expected Outcomes/Goals 1. PO intake continue to meet at least 75% of estimated nutritional needs.
--- NOTE | 2016-06-21 01:57 | Progress Notes ---
DATE: 06/20/2016 SUBJECTIVE: The patient was seen and evaluated. Chart reviewed. Overnight, nursing staff reported that there have not been really many changes, but at times, she has been refusing medications. We have pending Riese on 06/21/2016. Today on [id number] evaluation, the patient is very irritable ____ to take any medications, there is nothing wrong with her. When I attempted to engage with her in a linear conversation about the reason for hospitalization, she becomes more irritable, agitated, and unable to formulate a safe plan. MENTAL STATUS EXAMINATION: Paranoid, delusional. ASSESSMENT AND PLAN: This is an 80-year-old female who continues to be delusional, suspicious, and paranoid, unable to engage in a linear conversation. Due to the patient's noncompliance with medications and disorganized thought process, we will continue following with the patient's scheduled Riese. JOB# [id number]
[2016-06-21] MEDS: INSULIN ASPART SLIDING SCALE 100 UNITS/ML UNIT SUBQ SCH ×4 (06:32→21:05)
[2016-06-21] MEDS: Multivitamin Tab PO SCH (09:19)
--- NOTE | 2016-06-21 15:37 | Internal Medicine Prog Note ---
Internal Medicine Subjective - Subjective Patient seen and examined:: with staff, chart reviewed Patient is:: awake, verbal, interactive Per staff patient is:: no adverse event, poor appetite, confused Internal Medicine Objective - Results Result Diagrams: 06/09/16 18:59 06/09/16 18:59 Recent Labs: Laboratory Last Values WBC 5.3 Th/cmm (4.8-10.8) 06/09/16 18:59 RBC 4.36 Mil/cmm (3.80-5.20) 06/09/16 18:59 Hgb 13.5 gm/dL (11.7-16.1) 06/09/16 18:59 Hct 40.1 % (35.0-45.0) 06/09/16 18:59 MCV 92.0 fl (81-100) 06/09/16 18:59 MCH 30.9 pg (27.0-31.0) 06/09/16 18:59 MCHC Differential 33.6 pg (28.0-36.0) 06/09/16 18:59 RDW 13.3 % (11.5-20.0) 06/09/16 18:59 Plt Count 182 Th/cmm (150-400) 06/09/16 18:59 MPV 8.2 fl 06/09/16 18:59 Neutrophils % 53.3 % (40.0-80.0) 06/09/16 18:59 Lymphocytes % 34.2 % (20.0-50.0) 06/09/16 18:59 Monocytes % 10.2 % (2.0-10.0) H 06/09/16 18:59 Eosinophils % 2.1 % (0.0-5.0) 06/09/16 18:59 Basophils % 0.2 % (0.0-2.0) 06/09/16 18:59 Sodium 137 mEq/L (136-145) 06/09/16 18:59 Potassium 4.2 mEq/L (3.5-5.1) 06/09/16 18:59 Chloride 102 mEq/L (98-107) 06/09/16 18:59 Carbon Dioxide 27.6 mEq/L (21.0-31.0) 06/09/16 18:59 Anion Gap 11.6 (7.0-16.0) 06/09/16 18:59 BUN 19 mg/dL (7-25) 06/09/16 18:59 Creatinine 0.7 mg/dL (0.6-1.2) 06/09/16 18:59 Est GFR ( Amer) TNP 06/09/16 18:59 Est GFR (Non-Af Amer) TNP 06/09/16 18:59 BUN/Creatinine Ratio 27.1 06/09/16 18:59 Glucose 104 mg/dL (70-105) 06/09/16 18:59 POC Glucose 89 MG/DL (70 - 105) 06/21/16 11:48 Calcium 9.1 mg/dL (8.6-10.3) 06/09/16 18:59 Triglycerides 111 mg/dL (<150) 06/09/16 18:59 Cholesterol 210 mg/dL (<200) H 06/09/16 18:59 LDL Cholesterol Direct 129 mg/dL (75-193) 06/09/16 18:59 HDL Cholesterol 65 mg/dL (23-92) 06/09/16 18:59 TSH 0.78 uIU/ml (0.34-5.60) 06/09/16 18:59 Urine Source CLEAN C 06/09/16 19:00 Urine Color YELLOW 06/09/16 19:00 Urine Clarity CLEAR (CLEAR) 06/09/16 19:00 Urine pH 6.5 06/09/16 19:00 Ur Specific [place] 1.015 (1.005-1.030) 06/09/16 19:00 Urine Protein NEGATIVE mg/dL (NEGATIVE) 06/09/16 19:00 Urine Glucose (UA) NEGATIVE mg/dL (NEGATIVE) 06/09/16 19:00 Urine Ketones NEGATIVE mg/dL (NEGATIVE) 06/09/16 19:00 Urine Blood NEGATIVE (NEGATIVE) 06/09/16 19:00 Urine Nitrate NEGATIVE (NEGATIVE) 06/09/16 19:00 Urine Bilirubin NEGATIVE (NEGATIVE) 06/09/16 19:00 Urine Urobilinogen 0.2 E.U./dL (0.2 - 1.0) 06/09/16 19:00 Ur Leukocyte Esterase NEGATIVE (NEGATIVE) 06/09/16 19:00 Urine RBC NONE SEEN /hpf (0-5) 06/09/16 19:00 Urine WBC NONE SEEN /hpf (0-5) 06/09/16 19:00 Ur Epithelial Cells NONE SEEN /lpf (FEW) 06/09/16 19:00 Urine Bacteria NONE SEEN /hpf (NONE SEEN) 06/09/16 19:00 RPR NONREACTIVE (NONREACTIVE) 06/09/16 18:59 Hepatitis A IgM Ab Negative (Negative) 06/09/16 18:59 Hep Bs Antigen Negative (Negative) 06/09/16 18:59 Hep B Core IgM Ab Negative (Negative) 06/09/16 18:59 Hepatitis C Antibody 0.1 s/co ratio (0.0-0.9) 06/09/16 18:59 - Physical Exam Vitals and I&O: Vital Signs Temp 98.1 F 06/21/16 06:21 Pulse 77 06/21/16 09:18 Resp 19 06/21/16 08:00 BP 155/77 06/21/16 09:18 Pulse Ox 97 06/21/16 06:21 Intake & Output 06/20/16 06/21/16 06/21/16 18:59 06:59 18:59 Intake Total 1000 240 Balance 1000 240 Weight (lbs) 82.554 kg Intake: Oral 1000 240 Other: # Voids 4 1 # Bowel Movements 1 0 Active Medications: Current Medications Acetaminophen (Tylenol) 650 mg PO Q4HR PRN PRN Reason: Pain Stop: 08/08/16 20:51 Al Hydrox/Mg Hydrox/Simethicone (Maalox) 30 ml PO Q4HR PRN PRN Reason: GI DISTRESS Stop: 08/08/16 20:51 Bisacodyl (Dulcolax 10 Mg Supp) 10 mg RC DAILY PRN PRN Reason: Constipation Stop: 08/08/16 20:51 Carbidopa/Levodopa (Sinemet 25 Mg-250 Mg) 1 tab PO QID EMILY Stop: 08/08/16 20:59 Last Admin: 06/21/16 13:59 Dose: Not Given Donepezil HCl (Aricept) 10 mg PO HS EMILY Stop: 08/08/16 20:59 Last Admin: 06/20/16 21:08 Dose: 10 mg Enalapril Maleate (Vasotec) 10 mg PO DAILY EMILY Stop: 08/09/16 08:59 Last Admin: 06/21/16 09:18 Dose: 10 mg Gabapentin (Neurontin) 100 mg PO BID EMILY Stop: 08/09/16 08:59 Last Admin: 06/21/16 09:18 Dose: 100 mg Haloperidol (Haldol) 2 mg PO DAILY EMILY PRN Reason: Protocol Stop: 08/14/16 12:14 Last Admin: 06/21/16 09:18 Dose: 2 mg Haloperidol Decanoate (Haldol Dec) 50 mg IM QMONTH EMILY PRN Reason: Protocol Stop: 08/17/16 14:59 Last Admin: 06/18/16 16:38 Dose: Not Given Insulin Aspart (Novolog Insulin Sliding Scale) 0 units SUBQ ACHS EMILY PRN Reason: Protocol Stop: 08/08/16 20:59 Last Admin: 06/21/16 11:51 Dose: Not Given Lorazepam (Ativan) 0.5 mg PO Q6H PRN; Protocol PRN Reason: Agitation Stop: 08/08/16 20:51 Last Admin: 06/20/16 17:08 Dose: 0.5 mg Magnesium Hydroxide (Milk Of Magnesia) 30 ml PO DAILY PRN PRN Reason: Constipation Stop: 08/08/16 20:51 Memantine (Namenda) 10 mg PO BID EMILY Stop: 08/09/16 08:59 Last Admin: 06/21/16 09:19 Dose: 10 mg Multivitamins/Vitamin C (Theragran) 1 tab PO DAILY EMILY Stop: 08/09/16 08:59 Last Admin: 06/21/16 09:19 Dose: 1 tab Oxybutynin Chloride (Ditropan Xl) 5 mg PO HS EMILY Stop: 08/08/16 20:59 Last Admin: 06/20/16 21:08 Dose: 5 mg Phenytoin (Dilantin) 100 mg PO TID EMILY Stop: 08/08/16 20:59 Last Admin: 06/21/16 14:02 Dose: Not Given Pioglitazone HCl (Actos) 30 mg PO DAILY EMILY Stop: 08/09/16 08:59 Last Admin: 06/21/16 09:19 Dose: 30 mg Quetiapine Fumarate 200 mg/ (Quetiapine Fumarate 25 mg) 225 mg PO HS [facility] Stop: 08/09/16 20:59 Last Admin: 06/20/16 21:08 Dose: 225 mg General: demented HEENT: NC/AT, PERRLA Neck: Supple, No JVD Lungs: CTAB Cardiovascular: RRR, Normal S1, Normal S2 Abdomen: soft non-tender, globular, positive bowel sound Extremities: excoriation Neurological: no change - Procedures Procedures: Procedures Procedure Code Date OTHER GROUP THERAPY 94.44 08/26/14 Internal Medicine Assmt/Plan - Assessment Assessment: dm htn inc chol debility - Plan Plan: cont on ada iss cont on bp medsd neri rn Nutritional Asmnt/Malnutr-PDOC - Dietary Evaluation Malnutrition Findings (Please click <Entered> for more info): Nutritional Asmnt/Malnutrition Start: 06/14/16 14: 55 Text: Status: Complete Freq: Document 06/14/16 14:55 GSUN (Rec: 06/14/16 15:06 GSUN [email or web address]) Nutritional Asmnt/Malnutrition Patient General Information Nutritional Screening Moderate Risk Screening Diagnosis Acute exacerbation of psychotic disorder Pertinent Medical Hx/Surgical Hx Parkinson's disease, COPD, DJD , HTN, seizure disorder, dementia, hyperlipidemia, GERD , DM Subjective Information 80 year old female from SNF. Pt was asleep during visit, unable to be woken up. Observed lunch tray 100% finished at bedside. Avg PO itnake 100% of meals since adm . Per nursing staff and RN notes, pt is orientated to self only, has good appetite, no nutritional cocnerns at this time. CBW bedscale 179. 7lb, questionable, EMR record 169lb. Current Diet Order/ Nutrition Support Chopped, MOISES, CCHO Pertinent Medications Maalox, Novolog, MOM, Theragran Pertinent Labs POC glucose WNL past 4 days, with 1 elevated level of 115H. Nutritional Hx/Data Height 1.78 m Height (Calculated Centimeters) 177.8 Current Weight (lbs) 76.657 kg Weight (Calculated Kilograms) 76.7 Weight (Calculated Grams) 56712.1 [place] Body Weight 150 Weight Status Approriate GI Symptoms Food Allergies Yes Cultural/Ethnic/Taoism Belief Allergies to blueberry Usual diet at home [facility] : [facility] soft, MOISES, CCHO Skin Integrity/Comment: Leandro Larose. Skin intact. Current %PO Good (75-100%) Estimated Nutritional Goals BEE in Kcals: Using Current wt Calories/Kcals/Kg CBW 169lb/76.7kg Kcals Calculated 1918-2301kcal (25-30kcal/kg) Protein: Using Current wt Protein Calculated 77g (1g/kg) Fluid: ml 8-2301ml (1ml/kcal) Nutritional Problem 1. Problem Problem Inadequate carbohydrate intake related to Etiology estimated nutritional needs aeb Signs/Symptoms: [id number] does not provide to meet 100% of estimated nutritional needs. Intervention/Recommendation Comments 1. Recommend [id number]. Current diet order does not provide to meet 100% of estimated nutritional needs. POC glucose WNL. Avg PO intake is adequate. Expected Outcomes/Goals Expected Outcomes/Goals 1. PO intake continue to meet at least 75% of estimated nutritional needs.
[2016-06-21] MEDS: Oxybutynin Chloride 5 mg ER Tab PO SCH (21:08)
[2016-06-22] MEDS: INSULIN ASPART SLIDING SCALE 100 UNITS/ML UNIT SUBQ SCH (06:31)
--- NOTE | 2016-06-22 08:17 | General Progress Note ---
Subjective - Review of Systems Subjective: PATIENT IS SEEN AND EXAMINED. REFUSING MEDS AND GLUCOSACN. AGITATION AT TIMES. Objective - Results Result Diagrams: 06/09/16 18:59 06/09/16 18:59 Recent Labs: Laboratory Last Values WBC 5.3 Th/cmm (4.8-10.8) 06/09/16 18:59 RBC 4.36 Mil/cmm (3.80-5.20) 06/09/16 18:59 Hgb 13.5 gm/dL (11.7-16.1) 06/09/16 18:59 Hct 40.1 % (35.0-45.0) 06/09/16 18:59 MCV 92.0 fl (81-100) 06/09/16 18:59 MCH 30.9 pg (27.0-31.0) 06/09/16 18:59 MCHC Differential 33.6 pg (28.0-36.0) 06/09/16 18:59 RDW 13.3 % (11.5-20.0) 06/09/16 18:59 Plt Count 182 Th/cmm (150-400) 06/09/16 18:59 MPV 8.2 fl 06/09/16 18:59 Neutrophils % 53.3 % (40.0-80.0) 06/09/16 18:59 Lymphocytes % 34.2 % (20.0-50.0) 06/09/16 18:59 Monocytes % 10.2 % (2.0-10.0) H 06/09/16 18:59 Eosinophils % 2.1 % (0.0-5.0) 06/09/16 18:59 Basophils % 0.2 % (0.0-2.0) 06/09/16 18:59 Sodium 137 mEq/L (136-145) 06/09/16 18:59 Potassium 4.2 mEq/L (3.5-5.1) 06/09/16 18:59 Chloride 102 mEq/L (98-107) 06/09/16 18:59 Carbon Dioxide 27.6 mEq/L (21.0-31.0) 06/09/16 18:59 Anion Gap 11.6 (7.0-16.0) 06/09/16 18:59 BUN 19 mg/dL (7-25) 06/09/16 18:59 Creatinine 0.7 mg/dL (0.6-1.2) 06/09/16 18:59 Est GFR ( Amer) TNP 06/09/16 18:59 Est GFR (Non-Af Amer) TNP 06/09/16 18:59 BUN/Creatinine Ratio 27.1 06/09/16 18:59 Glucose 104 mg/dL (70-105) 06/09/16 18:59 POC Glucose 122 MG/DL (70 - 105) H 06/21/16 16:51 Calcium 9.1 mg/dL (8.6-10.3) 06/09/16 18:59 Triglycerides 111 mg/dL (<150) 06/09/16 18:59 Cholesterol 210 mg/dL (<200) H 06/09/16 18:59 LDL Cholesterol Direct 129 mg/dL (75-193) 06/09/16 18:59 HDL Cholesterol 65 mg/dL (23-92) 06/09/16 18:59 TSH 0.78 uIU/ml (0.34-5.60) 06/09/16 18:59 Urine Source CLEAN C 06/09/16 19:00 Urine Color YELLOW 06/09/16 19:00 Urine Clarity CLEAR (CLEAR) 06/09/16 19:00 Urine pH 6.5 06/09/16 19:00 Ur Specific [place] 1.015 (1.005-1.030) 06/09/16 19:00 Urine Protein NEGATIVE mg/dL (NEGATIVE) 06/09/16 19:00 Urine Glucose (UA) NEGATIVE mg/dL (NEGATIVE) 06/09/16 19:00 Urine Ketones NEGATIVE mg/dL (NEGATIVE) 06/09/16 19:00 Urine Blood NEGATIVE (NEGATIVE) 06/09/16 19:00 Urine Nitrate NEGATIVE (NEGATIVE) 06/09/16 19:00 Urine Bilirubin NEGATIVE (NEGATIVE) 06/09/16 19:00 Urine Urobilinogen 0.2 E.U./dL (0.2 - 1.0) 06/09/16 19:00 Ur Leukocyte Esterase NEGATIVE (NEGATIVE) 06/09/16 19:00 Urine RBC NONE SEEN /hpf (0-5) 06/09/16 19:00 Urine WBC NONE SEEN /hpf (0-5) 06/09/16 19:00 Ur Epithelial Cells NONE SEEN /lpf (FEW) 06/09/16 19:00 Urine Bacteria NONE SEEN /hpf (NONE SEEN) 06/09/16 19:00 RPR NONREACTIVE (NONREACTIVE) 06/09/16 18:59 Hepatitis A IgM Ab Negative (Negative) 06/09/16 18:59 Hep Bs Antigen Negative (Negative) 06/09/16 18:59 Hep B Core IgM Ab Negative (Negative) 06/09/16 18:59 Hepatitis C Antibody 0.1 s/co ratio (0.0-0.9) 06/09/16 18:59 - Physical Exam Vitals and I&O: Vital Signs Temp 98.4 F 06/22/16 06:46 Pulse 76 06/22/16 06:46 Resp 18 06/22/16 06:46 BP 124/45 06/22/16 06:46 Pulse Ox 94 06/22/16 06:46 Intake & Output 06/21/16 06/22/16 06/22/16 18:59 06:59 18:59 Intake Total 1800 0 Balance 1800 0 Weight (lbs) 82.554 kg Intake: Oral 1800 0 Other: # Voids 4 2 # Bowel Movements 1 0 Active Medications: Current Medications Acetaminophen (Tylenol) 650 mg PO Q4HR PRN PRN Reason: Pain Stop: 08/08/16 20:51 Al Hydrox/Mg Hydrox/Simethicone (Maalox) 30 ml PO Q4HR PRN PRN Reason: GI DISTRESS Stop: 08/08/16 20:51 Bisacodyl (Dulcolax 10 Mg Supp) 10 mg RC DAILY PRN PRN Reason: Constipation Stop: 08/08/16 20:51 Carbidopa/Levodopa (Sinemet 25 Mg-250 Mg) 1 tab PO QID EMILY Stop: 08/08/16 20:59 Last Admin: 06/21/16 21:08 Dose: Not Given Donepezil HCl (Aricept) 10 mg PO HS EMILY Stop: 08/08/16 20:59 Last Admin: 06/21/16 21:08 Dose: 10 mg Enalapril Maleate (Vasotec) 10 mg PO DAILY EMILY Stop: 08/09/16 08:59 Last Admin: 06/21/16 09:18 Dose: 10 mg Gabapentin (Neurontin) 100 mg PO BID EMILY Stop: 08/09/16 08:59 Last Admin: 06/21/16 16:41 Dose: 100 mg Haloperidol (Haldol) 2 mg PO DAILY EMILY PRN Reason: Protocol Stop: 08/14/16 12:14 Last Admin: 06/21/16 09:18 Dose: 2 mg Haloperidol Decanoate (Haldol Dec) 50 mg IM QMONTH EMILY PRN Reason: Protocol Stop: 08/17/16 14:59 Last Admin: 06/18/16 16:38 Dose: Not Given Insulin Aspart (Novolog Insulin Sliding Scale) 0 units SUBQ ACHS EMILY PRN Reason: Protocol Stop: 08/08/16 20:59 Last Admin: 06/22/16 06:31 Dose: Not Given Lorazepam (Ativan) 0.5 mg PO Q6H PRN; Protocol PRN Reason: Agitation Stop: 08/08/16 20:51 Last Admin: 06/20/16 17:08 Dose: 0.5 mg Magnesium Hydroxide (Milk Of Magnesia) 30 ml PO DAILY PRN PRN Reason: Constipation Stop: 08/08/16 20:51 Memantine (Namenda) 10 mg PO BID [facility] Stop: 08/09/16 08:59 Last Admin: 06/21/16 16:41 Dose: 10 mg Multivitamins/Vitamin C (Theragran) 1 tab PO DAILY [facility] Stop: 08/09/16 08:59 Last Admin: 06/21/16 09:19 Dose: 1 tab Oxybutynin Chloride (Ditropan Xl) 5 mg PO HS [facility] Stop: 08/08/16 20:59 Last Admin: 06/21/16 21:08 Dose: 5 mg Phenytoin (Dilantin) 100 mg PO TID [facility] Stop: 08/08/16 20:59 Last Admin: 06/21/16 21:08 Dose: 100 mg Pioglitazone HCl (Actos) 30 mg PO DAILY [facility] Stop: 08/09/16 08:59 Last Admin: 06/21/16 09:19 Dose: 30 mg Quetiapine Fumarate 200 mg/ (Quetiapine Fumarate 25 mg) 225 mg PO HS [facility] Stop: 08/09/16 20:59 Last Admin: 06/21/16 21:08 Dose: 225 mg General: Alert, No acute distress HEENT: Atraumatic, PERRLA, EOMI Neck: Supple, JVD Cardiovascular: Regular rate, Normal S1, Normal S2 Lungs: Clear to auscultation Abdomen: Bowel sounds, Soft Extremities: Pulses Neurological: Normal gait - Procedures Procedures: Procedures Procedure Code Date OTHER GROUP THERAPY 94.44 08/26/14 Assessment/Plan - Problem List Patient Problems: All Active Problems Agitation (Acute) R45.1 - Assessment Assessment: PARKINSON'S DISEASE. PSYCH DISORDER DJD. DETRUSOR INSTABILITY. DM II COPD HTN FALL RISK DEMENTIA. - Plan Plan: MONITOR GLUCOSE AND VITALS MONITOR BEHAVIOR FALL PRECAUTIONS. GENERAL NURSING CARE PSYCH MEDS AND FOLLOW UP CONTINUE CURRENT CARE DISCUSSED WITH STAFF. Nutritional Asmnt/Malnutr-PDOC - Dietary Evaluation Malnutrition Findings (Please click <Entered> for more info): Nutritional Asmnt/Malnutrition Start: 06/14/16 14: 55 Text: Status: Complete Freq: Document 06/14/16 14:55 GSUN (Rec: 06/14/16 15:06 [email or web address] [email or web address]) Nutritional Asmnt/Malnutrition Patient General Information Nutritional Screening Moderate Risk Screening Diagnosis Acute exacerbation of psychotic disorder Pertinent Medical Hx/Surgical Hx Parkinson's disease, COPD, DJD , HTN, seizure disorder, dementia, hyperlipidemia, GERD , DM Subjective Information 80 year old female from SNF. Pt was asleep during visit, unable to be woken up. Observed lunch tray 100% finished at bedside. Avg PO itnake 100% of meals since adm . Per nursing staff and RN notes, pt is orientated to self only, has good appetite, no nutritional cocnerns at this time. CBW bedscale 179. 7lb, questionable, EMR record 169lb. Current Diet Order/ Nutrition Support Chopped, MOISES, CCHO Pertinent Medications Maalox, Novolog, MOM, Theragran Pertinent Labs POC glucose WNL past 4 days, with 1 elevated level of 115H. Nutritional Hx/Data Height 1.78 m Height (Calculated Centimeters) 177.8 Current Weight (lbs) 76.657 kg Weight (Calculated Kilograms) 76.7 Weight (Calculated Grams) 69548.1 [place] Body Weight 150 Weight Status Approriate GI Symptoms Food Allergies Yes Cultural/Ethnic/Yazdanism Belief Allergies to blueberry Usual diet at home [facility] : [facility] soft, MOISES, CCHO Skin Integrity/Comment: Leandro 20. Skin intact. Current %PO Good (75-100%) Estimated Nutritional Goals BEE in Kcals: Using Current wt Calories/Kcals/Kg CBW 169lb/76.7kg Kcals Calculated 1918-2301kcal (25-30kcal/kg) Protein: Using Current wt Protein Calculated 77g (1g/kg) Fluid: ml 1918-2301ml (1ml/kcal) Nutritional Problem 1. Problem Problem Inadequate carbohydrate intake related to Etiology estimated nutritional needs aeb Signs/Symptoms: [id number] does not provide to meet 100% of estimated nutritional needs. Intervention/Recommendation Comments 1. Recommend [id number]. Current diet order does not provide to meet 100% of estimated nutritional needs. POC glucose WNL. Avg PO intake is adequate. Expected Outcomes/Goals Expected Outcomes/Goals 1. PO intake continue to meet at least 75% of estimated nutritional needs.
--- NOTE | 2016-06-22 09:30 | Progress Notes ---
DATE: 06/21/2016 Case was discussed with staff of the patient, reviewed records. The patient has been compliant with oral medication, refused Haldol Decanoate, so she had ____ today; however, I cancelled it because the patient has been compliant with the medication, and when I talked to her, she is still delusional. She is still unable to make safe plan for self-care, but she is taking her medication with no side effects, no sedation, no nausea, no extrapyramidal symptoms. I will be increasing her Haldol to 5 mg twice a day. She is confused, demented, delusional, believes I signed her discharge order 5 times and that she does not live in [place] ____. We will continue to work with the patient in group therapy, milieu therapy, and adjust the medications as needed. JOB# [id number]
[2016-06-22] MEDS: Multivitamin Tab PO SCH (10:16)
[2016-06-22] MEDS: Oxybutynin Chloride 5 mg ER Tab PO SCH (20:36)
--- NOTE | 2016-06-23 08:55 | General Progress Note ---
Subjective - Review of Systems Subjective: PATIENT IS SEEN AND EXAMINED. NO NEW EVENTS. DISCUSSED WITH STAFF RE; OVERNIGHT CONCERNS. AGITATION AT TIMES. Objective - Results Result Diagrams: 06/09/16 18:59 06/09/16 18:59 Recent Labs: Laboratory Last Values WBC 5.3 Th/cmm (4.8-10.8) 06/09/16 18:59 RBC 4.36 Mil/cmm (3.80-5.20) 06/09/16 18:59 Hgb 13.5 gm/dL (11.7-16.1) 06/09/16 18:59 Hct 40.1 % (35.0-45.0) 06/09/16 18:59 MCV 92.0 fl (81-100) 06/09/16 18:59 MCH 30.9 pg (27.0-31.0) 06/09/16 18:59 MCHC Differential 33.6 pg (28.0-36.0) 06/09/16 18:59 RDW 13.3 % (11.5-20.0) 06/09/16 18:59 Plt Count 182 Th/cmm (150-400) 06/09/16 18:59 MPV 8.2 fl 06/09/16 18:59 Neutrophils % 53.3 % (40.0-80.0) 06/09/16 18:59 Lymphocytes % 34.2 % (20.0-50.0) 06/09/16 18:59 Monocytes % 10.2 % (2.0-10.0) H 06/09/16 18:59 Eosinophils % 2.1 % (0.0-5.0) 06/09/16 18:59 Basophils % 0.2 % (0.0-2.0) 06/09/16 18:59 Sodium 137 mEq/L (136-145) 06/09/16 18:59 Potassium 4.2 mEq/L (3.5-5.1) 06/09/16 18:59 Chloride 102 mEq/L (98-107) 06/09/16 18:59 Carbon Dioxide 27.6 mEq/L (21.0-31.0) 06/09/16 18:59 Anion Gap 11.6 (7.0-16.0) 06/09/16 18:59 BUN 19 mg/dL (7-25) 06/09/16 18:59 Creatinine 0.7 mg/dL (0.6-1.2) 06/09/16 18:59 Est GFR ( Amer) TNP 06/09/16 18:59 Est GFR (Non-Af Amer) TNP 06/09/16 18:59 BUN/Creatinine Ratio 27.1 06/09/16 18:59 Glucose 104 mg/dL (70-105) 06/09/16 18:59 POC Glucose 122 MG/DL (70 - 105) H 06/21/16 16:51 Calcium 9.1 mg/dL (8.6-10.3) 06/09/16 18:59 Triglycerides 111 mg/dL (<150) 06/09/16 18:59 Cholesterol 210 mg/dL (<200) H 06/09/16 18:59 LDL Cholesterol Direct 129 mg/dL (75-193) 06/09/16 18:59 HDL Cholesterol 65 mg/dL (23-92) 06/09/16 18:59 TSH 0.78 uIU/ml (0.34-5.60) 06/09/16 18:59 Urine Source CLEAN C 06/09/16 19:00 Urine Color YELLOW 06/09/16 19:00 Urine Clarity CLEAR (CLEAR) 06/09/16 19:00 Urine pH 6.5 06/09/16 19:00 Ur Specific [place] 1.015 (1.005-1.030) 06/09/16 19:00 Urine Protein NEGATIVE mg/dL (NEGATIVE) 06/09/16 19:00 Urine Glucose (UA) NEGATIVE mg/dL (NEGATIVE) 06/09/16 19:00 Urine Ketones NEGATIVE mg/dL (NEGATIVE) 06/09/16 19:00 Urine Blood NEGATIVE (NEGATIVE) 06/09/16 19:00 Urine Nitrate NEGATIVE (NEGATIVE) 06/09/16 19:00 Urine Bilirubin NEGATIVE (NEGATIVE) 06/09/16 19:00 Urine Urobilinogen 0.2 E.U./dL (0.2 - 1.0) 06/09/16 19:00 Ur Leukocyte Esterase NEGATIVE (NEGATIVE) 06/09/16 19:00 Urine RBC NONE SEEN /hpf (0-5) 06/09/16 19:00 Urine WBC NONE SEEN /hpf (0-5) 06/09/16 19:00 Ur Epithelial Cells NONE SEEN /lpf (FEW) 06/09/16 19:00 Urine Bacteria NONE SEEN /hpf (NONE SEEN) 06/09/16 19:00 RPR NONREACTIVE (NONREACTIVE) 06/09/16 18:59 Hepatitis A IgM Ab Negative (Negative) 06/09/16 18:59 Hep Bs Antigen Negative (Negative) 06/09/16 18:59 Hep B Core IgM Ab Negative (Negative) 06/09/16 18:59 Hepatitis C Antibody 0.1 s/co ratio (0.0-0.9) 06/09/16 18:59 - Physical Exam Vitals and I&O: Vital Signs Temp 98.2 F 06/23/16 05:55 Pulse 67 06/23/16 05:55 Resp 19 06/23/16 05:55 BP 139/52 06/23/16 05:55 Pulse Ox 95 06/23/16 05:55 Intake & Output 06/22/16 06/23/16 06/23/16 18:59 06:59 18:59 Intake Total 800 240 Balance 800 240 Intake: Oral 800 240 Other: # Voids 3 1 # Bowel Movements 1 0 Active Medications: Current Medications Acetaminophen (Tylenol) 650 mg PO Q4HR PRN PRN Reason: Pain Stop: 08/08/16 20:51 Last Admin: 06/22/16 10:16 Dose: 650 mg Al Hydrox/Mg Hydrox/Simethicone (Maalox) 30 ml PO Q4HR PRN PRN Reason: GI DISTRESS Stop: 08/08/16 20:51 Bisacodyl (Dulcolax 10 Mg Supp) 10 mg RC DAILY PRN PRN Reason: Constipation Stop: 08/08/16 20:51 Carbidopa/Levodopa (Sinemet 25 Mg-250 Mg) 1 tab PO QID EMILY Stop: 08/08/16 20:59 Last Admin: 06/22/16 20:36 Dose: Not Given Donepezil HCl (Aricept) 10 mg PO HS [facility] Stop: 08/08/16 20:59 Last Admin: 06/22/16 20:36 Dose: Not Given Enalapril Maleate (Vasotec) 10 mg PO DAILY [facility] Stop: 08/09/16 08:59 Last Admin: 06/22/16 09:17 Dose: Not Given Gabapentin (Neurontin) 100 mg PO BID [facility] Stop: 08/09/16 08:59 Last Admin: 06/22/16 17:12 Dose: 100 mg Haloperidol (Haldol) 5 mg PO BID EMILY PRN Reason: Protocol Stop: 08/21/16 09:59 Last Admin: 06/22/16 17:12 Dose: 5 mg Haloperidol Decanoate (Haldol Dec) 50 mg IM QMONTH EMIYL PRN Reason: Protocol Stop: 08/17/16 14:59 Last Admin: 06/18/16 16:38 Dose: Not Given Lorazepam (Ativan) 0.5 mg PO Q6H PRN; Protocol PRN Reason: Agitation Stop: 08/08/16 20:51 Last Admin: 06/20/16 17:08 Dose: 0.5 mg Magnesium Hydroxide (Milk Of Magnesia) 30 ml PO DAILY PRN PRN Reason: Constipation Stop: 08/08/16 20:51 Memantine (Namenda) 10 mg PO BID [facility] Stop: 08/09/16 08:59 Last Admin: 06/22/16 17:12 Dose: 10 mg Multivitamins/Vitamin C (Theragran) 1 tab PO DAILY [facility] Stop: 08/09/16 08:59 Last Admin: 06/22/16 10:16 Dose: 1 tab Oxybutynin Chloride (Ditropan Xl) 5 mg PO HS [facility] Stop: 08/08/16 20:59 Last Admin: 06/22/16 20:36 Dose: Not Given Phenytoin (Dilantin) 100 mg PO TID [facility] Stop: 08/08/16 20:59 Last Admin: 06/22/16 20:36 Dose: Not Given Pioglitazone HCl (Actos) 30 mg PO DAILY [facility] Stop: 08/09/16 08:59 Last Admin: 06/22/16 10:15 Dose: 30 mg Quetiapine Fumarate 200 mg/ (Quetiapine Fumarate 25 mg) 225 mg PO HS [facility] Stop: 08/09/16 20:59 Last Admin: 06/22/16 20:36 Dose: Not Given General: Alert, Cooperative HEENT: Atraumatic, PERRLA, EOMI Neck: Supple Cardiovascular: Regular rate, Normal S1, Normal S2 Lungs: Clear to auscultation, Normal air movement Abdomen: Bowel sounds, Soft, Obese Psych/Mental Status: Other (Labile mood+) - Procedures Procedures: Procedures Procedure Code Date OTHER GROUP THERAPY 94.44 08/26/14 Assessment/Plan - Problem List Patient Problems: All Active Problems Agitation (Acute) R45.1 - Assessment Assessment: PARKINSON'S DISEASE. PSYCH DISORDER DJD. DETRUSOR INSTABILITY. DM II COPD HTN FALL RISK DEMENTIA. - Plan Plan: MONITOR GLUCOSE AND VITALS MONITOR BEHAVIOR FALL PRECAUTIONS. MEDICATION MANAGEMENT. SYMPTOMS CONTROL. GENERAL NURSING CARE PSYCH MEDS AND FOLLOW UP CONTINUE CURRENT CARE DISCUSSED WITH STAFF. Nutritional Asmnt/Malnutr-PDOC - Dietary Evaluation Malnutrition Findings (Please click <Entered> for more info): Nutritional Asmnt/Malnutrition Start: 06/14/16 14: 55 Text: Status: Complete Freq: Document 06/14/16 14:55 GSUN (Rec: 06/14/16 15:06 GSUN [email or web address]) Nutritional Asmnt/Malnutrition Patient General Information Nutritional Screening Moderate Risk Screening Diagnosis Acute exacerbation of psychotic disorder Pertinent Medical Hx/Surgical Hx Parkinson's disease, COPD, DJD , HTN, seizure disorder, dementia, hyperlipidemia, GERD , DM Subjective Information 80 year old female from SNF. Pt was asleep during visit, unable to be woken up. Observed lunch tray 100% finished at bedside. Avg PO itnake 100% of meals since adm . Per nursing staff and RN notes, pt is orientated to self only, has good appetite, no nutritional cocnerns at this time. CBW bedscale 179. 7lb, questionable, EMR record 169lb. Current Diet Order/ Nutrition Support Chopped, MOISES, CCHO Pertinent Medications Maalox, Novolog, MOM, Theragran Pertinent Labs POC glucose WNL past 4 days, with 1 elevated level of 115H. Nutritional Hx/Data Height 1.78 m Height (Calculated Centimeters) 177.8 Current Weight (lbs) 76.657 kg Weight (Calculated Kilograms) 76.7 Weight (Calculated Grams) 95497.1 [place] Body Weight 150 Weight Status Approriate GI Symptoms Food Allergies Yes Cultural/Ethnic/Muslim Belief Allergies to blueberry Usual diet at home [facility] : [facility] soft, MOISES, CCHO Skin Integrity/Comment: Leandro 20. Skin intact. Current %PO Good (75-100%) Estimated Nutritional Goals BEE in Kcals: Using Current wt Calories/Kcals/Kg CBW 169lb/76.7kg Kcals Calculated 8-2301kcal (25-30kcal/kg) Protein: Using Current wt Protein Calculated 77g (1g/kg) Fluid: ml 1918-2301ml (1ml/kcal) Nutritional Problem 1. Problem Problem Inadequate carbohydrate intake related to Etiology estimated nutritional needs aeb Signs/Symptoms: [id number] does not provide to meet 100% of estimated nutritional needs. Intervention/Recommendation Comments 1. Recommend [id number]. Current diet order does not provide to meet 100% of estimated nutritional needs. POC glucose WNL. Avg PO intake is adequate. Expected Outcomes/Goals Expected Outcomes/Goals 1. PO intake continue to meet at least 75% of estimated nutritional needs.
[2016-06-23] MEDS: Multivitamin Tab PO SCH (09:03)
[2016-06-23] MEDS: Oxybutynin Chloride 5 mg ER Tab PO SCH (20:22)
--- NOTE | 2016-06-24 02:27 | Progress Notes ---
DATE: 06/22/2016 Case was discussed with staff of the patient, reviewed records. The patient today is a bit calmer. She is taking her medications. She is taking the Seroquel, refused to take the Haldol. She continues to be selective about her medication, ____ give her the rest of her medication ____ the Parkinson medications. She stays in her room, isolating. She has very poor insight, unpredictable, impulsive, unable to make safe plan for self-care, delusional and she is in better mood today and we will continue to work with the patient in group therapy, milieu therapy, adjust medications. JOB# [id number]
--- NOTE | 2016-06-24 04:13 | Progress Notes ---
DATE: 06/23/2016 Case was discussed with staff of the patient. I also talked to the patient with the medication nurse who tried to convince her to take her medication. Apparently, she is agreeable to take oral medications by mouth including Haldol and Seroquel, but not willing to take Haldol injection. She does not like injection and also refusing to take her anti-Parkinson medication, Sinemet. She continues to be unpredictable and impulsive. However, she is less delusional. She is sleeping better, eating better. She is compliant with the medication with no side effects, no sedation, no nausea, no extrapyramidal symptoms and we will continue to work with the patient in group therapy, milieu therapy, and adjust medication as needed. JOB# [id number]
--- NOTE | 2016-06-24 08:32 | General Progress Note ---
Subjective - Review of Systems Subjective: PATIENT IS SEEN AND EXAMINED. NO NEW EVENTS. DISCUSSED WITH STAFF RE; OVERNIGHT CONCERNS. Objective - Results Result Diagrams: 06/09/16 18:59 06/09/16 18:59 Recent Labs: Laboratory Last Values WBC 5.3 Th/cmm (4.8-10.8) 06/09/16 18:59 RBC 4.36 Mil/cmm (3.80-5.20) 06/09/16 18:59 Hgb 13.5 gm/dL (11.7-16.1) 06/09/16 18:59 Hct 40.1 % (35.0-45.0) 06/09/16 18:59 MCV 92.0 fl (81-100) 06/09/16 18:59 MCH 30.9 pg (27.0-31.0) 06/09/16 18:59 MCHC Differential 33.6 pg (28.0-36.0) 06/09/16 18:59 RDW 13.3 % (11.5-20.0) 06/09/16 18:59 Plt Count 182 Th/cmm (150-400) 06/09/16 18:59 MPV 8.2 fl 06/09/16 18:59 Neutrophils % 53.3 % (40.0-80.0) 06/09/16 18:59 Lymphocytes % 34.2 % (20.0-50.0) 06/09/16 18:59 Monocytes % 10.2 % (2.0-10.0) H 06/09/16 18:59 Eosinophils % 2.1 % (0.0-5.0) 06/09/16 18:59 Basophils % 0.2 % (0.0-2.0) 06/09/16 18:59 Sodium 137 mEq/L (136-145) 06/09/16 18:59 Potassium 4.2 mEq/L (3.5-5.1) 06/09/16 18:59 Chloride 102 mEq/L (98-107) 06/09/16 18:59 Carbon Dioxide 27.6 mEq/L (21.0-31.0) 06/09/16 18:59 Anion Gap 11.6 (7.0-16.0) 06/09/16 18:59 BUN 19 mg/dL (7-25) 06/09/16 18:59 Creatinine 0.7 mg/dL (0.6-1.2) 06/09/16 18:59 Est GFR ( Amer) TNP 06/09/16 18:59 Est GFR (Non-Af Amer) TNP 06/09/16 18:59 BUN/Creatinine Ratio 27.1 06/09/16 18:59 Glucose 104 mg/dL (70-105) 06/09/16 18:59 POC Glucose 122 MG/DL (70 - 105) H 06/21/16 16:51 Calcium 9.1 mg/dL (8.6-10.3) 06/09/16 18:59 Triglycerides 111 mg/dL (<150) 06/09/16 18:59 Cholesterol 210 mg/dL (<200) H 06/09/16 18:59 LDL Cholesterol Direct 129 mg/dL (75-193) 06/09/16 18:59 HDL Cholesterol 65 mg/dL (23-92) 06/09/16 18:59 TSH 0.78 uIU/ml (0.34-5.60) 06/09/16 18:59 Urine Source CLEAN C 06/09/16 19:00 Urine Color YELLOW 06/09/16 19:00 Urine Clarity CLEAR (CLEAR) 06/09/16 19:00 Urine pH 6.5 06/09/16 19:00 Ur Specific [place] 1.015 (1.005-1.030) 06/09/16 19:00 Urine Protein NEGATIVE mg/dL (NEGATIVE) 06/09/16 19:00 Urine Glucose (UA) NEGATIVE mg/dL (NEGATIVE) 06/09/16 19:00 Urine Ketones NEGATIVE mg/dL (NEGATIVE) 06/09/16 19:00 Urine Blood NEGATIVE (NEGATIVE) 06/09/16 19:00 Urine Nitrate NEGATIVE (NEGATIVE) 06/09/16 19:00 Urine Bilirubin NEGATIVE (NEGATIVE) 06/09/16 19:00 Urine Urobilinogen 0.2 E.U./dL (0.2 - 1.0) 06/09/16 19:00 Ur Leukocyte Esterase NEGATIVE (NEGATIVE) 06/09/16 19:00 Urine RBC NONE SEEN /hpf (0-5) 06/09/16 19:00 Urine WBC NONE SEEN /hpf (0-5) 06/09/16 19:00 Ur Epithelial Cells NONE SEEN /lpf (FEW) 06/09/16 19:00 Urine Bacteria NONE SEEN /hpf (NONE SEEN) 06/09/16 19:00 RPR NONREACTIVE (NONREACTIVE) 06/09/16 18:59 Hepatitis A IgM Ab Negative (Negative) 06/09/16 18:59 Hep Bs Antigen Negative (Negative) 06/09/16 18:59 Hep B Core IgM Ab Negative (Negative) 06/09/16 18:59 Hepatitis C Antibody 0.1 s/co ratio (0.0-0.9) 06/09/16 18:59 - Physical Exam Vitals and I&O: Vital Signs Temp 98.6 F 06/23/16 14:00 Pulse 71 06/23/16 14:00 Resp 20 06/23/16 14:00 BP 124/65 06/23/16 14:00 Pulse Ox 97 06/23/16 14:00 Intake & Output 06/23/16 06/24/16 06/24/16 18:59 06:59 18:59 Intake Total 700 Balance 700 Intake: Oral 700 Other: # Voids 3 # Bowel Movements 1 Active Medications: Current Medications Acetaminophen (Tylenol) 650 mg PO Q4HR PRN PRN Reason: Pain Stop: 08/08/16 20:51 Last Admin: 06/22/16 10:16 Dose: 650 mg Al Hydrox/Mg Hydrox/Simethicone (Maalox) 30 ml PO Q4HR PRN PRN Reason: GI DISTRESS Stop: 08/08/16 20:51 Bisacodyl (Dulcolax 10 Mg Supp) 10 mg RC DAILY PRN PRN Reason: Constipation Stop: 08/08/16 20:51 Carbidopa/Levodopa (Sinemet 25 Mg-250 Mg) 1 tab PO QID EMILY Stop: 08/08/16 20:59 Last Admin: 06/23/16 20:23 Dose: Not Given Donepezil HCl (Aricept) 10 mg PO HS EMILY Stop: 08/08/16 20:59 Last Admin: 06/23/16 20:23 Dose: 10 mg Enalapril Maleate (Vasotec) 10 mg PO DAILY EMILY Stop: 08/09/16 08:59 Last Admin: 06/23/16 09:07 Dose: 10 mg Gabapentin (Neurontin) 100 mg PO BID EMILY Stop: 08/09/16 08:59 Last Admin: 06/23/16 16:20 Dose: 100 mg Haloperidol (Haldol) 5 mg PO BID EMILY PRN Reason: Protocol Stop: 08/21/16 09:59 Last Admin: 06/23/16 16:21 Dose: 5 mg Haloperidol Decanoate (Haldol Dec) 50 mg IM QMONTH EMILY PRN Reason: Protocol Stop: 08/17/16 14:59 Last Admin: 06/18/16 16:38 Dose: Not Given Magnesium Hydroxide (Milk Of Magnesia) 30 ml PO DAILY PRN PRN Reason: Constipation Stop: 08/08/16 20:51 Memantine (Namenda) 10 mg PO BID EMILY Stop: 08/09/16 08:59 Last Admin: 06/23/16 16:21 Dose: 10 mg Multivitamins/Vitamin C (Theragran) 1 tab PO DAILY EMILY Stop: 08/09/16 08:59 Last Admin: 06/23/16 09:03 Dose: 1 tab Oxybutynin Chloride (Ditropan Xl) 5 mg PO HS EMILY Stop: 08/08/16 20:59 Last Admin: 06/23/16 20:22 Dose: 5 mg Phenytoin (Dilantin) 100 mg PO TID EMILY Stop: 08/08/16 20:59 Last Admin: 06/23/16 20:22 Dose: 100 mg Pioglitazone HCl (Actos) 30 mg PO DAILY EMILY Stop: 08/09/16 08:59 Last Admin: 06/23/16 09:03 Dose: 30 mg Quetiapine Fumarate 200 mg/ (Quetiapine Fumarate 25 mg) 225 mg PO HS EMILY Stop: 08/09/16 20:59 Last Admin: 06/23/16 20:22 Dose: 225 mg General: Alert, Cooperative, No acute distress HEENT: Atraumatic, PERRLA, EOMI Neck: Supple, +2 carotid pulse wo bruit Cardiovascular: Regular rate, Normal S1, Normal S2 Lungs: Clear to auscultation Abdomen: Bowel sounds, Soft Neurological: Normal tone, Cranial nerves 3-12 NL - Procedures Procedures: Procedures Procedure Code Date OTHER GROUP THERAPY 94.44 08/26/14 Assessment/Plan - Problem List Patient Problems: All Active Problems Agitation (Acute) R45.1 - Assessment Assessment: PARKINSON'S DISEASE. PSYCH DISORDER DJD. DETRUSOR INSTABILITY. DM II COPD HTN FALL RISK DEMENTIA. - Plan Plan: MONITOR GLUCOSE AND VITALS MONITOR BEHAVIOR FALL PRECAUTIONS. MEDICATION MANAGEMENT. SYMPTOMS CONTROL. GENERAL NURSING CARE PSYCH MEDS AND FOLLOW UP CONTINUE CURRENT CARE DISCUSSED WITH STAFF. Nutritional Asmnt/Malnutr-PDOC - Dietary Evaluation Malnutrition Findings (Please click <Entered> for more info): Nutritional Asmnt/Malnutrition Start: 06/14/16 14: 55 Text: Status: Complete Freq: Document 06/14/16 14:55 GSUN (Rec: 06/14/16 15:06 GSUN [email or web address]) Nutritional Asmnt/Malnutrition Patient General Information Nutritional Screening Moderate Risk Screening Diagnosis Acute exacerbation of psychotic disorder Pertinent Medical Hx/Surgical Hx Parkinson's disease, COPD, DJD , HTN, seizure disorder, dementia, hyperlipidemia, GERD , DM Subjective Information 80 year old female from SNF. Pt was asleep during visit, unable to be woken up. Observed lunch tray 100% finished at bedside. Avg PO itnake 100% of meals since adm . Per nursing staff and RN notes, pt is orientated to self only, has good appetite, no nutritional cocnerns at this time. CBW bedscale 179. 7lb, questionable, EMR record 169lb. Current Diet Order/ Nutrition Support Chopped, MOISES, CCHO Pertinent Medications Maalox, Novolog, MOM, Theragran Pertinent Labs POC glucose WNL past 4 days, with 1 elevated level of 115H. Nutritional Hx/Data Height 1.78 m Height (Calculated Centimeters) 177.8 Current Weight (lbs) 76.657 kg Weight (Calculated Kilograms) 76.7 Weight (Calculated Grams) 59849.1 [place] Body Weight 150 Weight Status Approriate GI Symptoms Food Allergies Yes Cultural/Ethnic/Jewish Belief Allergies to blueberry Usual diet at home [facility] : [facility] soft, MOISES, CCHO Skin Integrity/Comment: Leandro 20. Skin intact. Current %PO Good (75-100%) Estimated Nutritional Goals BEE in Kcals: Using Current wt Calories/Kcals/Kg CBW 169lb/76.7kg Kcals Calculated 1918-2301kcal (25-30kcal/kg) Protein: Using Current wt Protein Calculated 77g (1g/kg) Fluid: ml 1918-2301ml (1ml/kcal) Nutritional Problem 1. Problem Problem Inadequate carbohydrate intake related to Etiology estimated nutritional needs aeb Signs/Symptoms: [id number] does not provide to meet 100% of estimated nutritional needs. Intervention/Recommendation Comments 1. Recommend [id number]. Current diet order does not provide to meet 100% of estimated nutritional needs. POC glucose WNL. Avg PO intake is adequate. Expected Outcomes/Goals Expected Outcomes/Goals 1. PO intake continue to meet at least 75% of estimated nutritional needs.
[2016-06-24] MEDS: Multivitamin Tab PO SCH (08:44)
[2016-06-24] MEDS: Oxybutynin Chloride 5 mg ER Tab PO SCH (20:31)
--- NOTE | 2016-06-25 03:39 | Progress Notes ---
DATE: 06/24/2016 Case was discussed with staff of the patient, reviewed records. The patient has been compliant with the medication. She has been getting out of the room a little bit more often. Continues to have limited insight. She is unpredictable. However, in general, she is responding better to redirection, taking her medications without the need to be prompted. So she continues to do well, I do have plan to let her go tomorrow, and so far no side effects with the medication, no sedation, no nausea, no extrapyramidal symptoms. We will continue to work with the patient in group therapy, milieu therapy, and adjust the medication as needed. JOB# [id number]
[2016-06-25] MEDS: Multivitamin Tab PO SCH (09:02)
--- NOTE | 2016-06-26 00:42 | Discharge Summary ---
DATE OF DISCHARGE: 06/25/2016 IDENTIFYING INFORMATION: The patient is an 80-year-old female. REASON FOR THE ADMISSION: The patient was referred because of psychosis. The patient is a well known patient with multiple prior admissions to this facility with previously having to [place] her because of her refusal to take medication. The patient was on Seroquel 225 mg at bedtime. COURSE IN THE HOSPITAL: The patient ____ refused to take her medication; however, after lot of prompting, finally she started taking Haldol 2 mg twice a day, increased to 5 mg twice a day. I did add for her Haldol Decanoate, she refused to take it, but she started taking the Seroquel on a regular basis 225 mg at bedtime. She has also continued with the rest of her medication, which is Aricept 10 mg at bedtime, ____, gabapentin, Namenda 10 mg twice a day, multivitamin, oxybutynin. The patient progressively got better. She is also on Dilantin 100 mg 3 times a day. So, as she improved, she was no longer acting in a psychotic manner, she was very appropriate, sleeping well, eating well, willing to take all of her medication, we felt she could be discharged to a lesser level of care. FINAL DIAGNOSES: Chronic undifferentiated schizophrenia, dementia. MEDICAL DIAGNOSES: Seizure disorder, Parkinson disease. The patient will go back to [place] with followup with the psychiatrist, neurologist, and primary care physician. EXPECTED OUTCOME: Stable if the patient complies. [facility]# [id number]
== END 2016-06-25 15:30 | DRG 884 ==
LOC: ER 18:19 → GERO 19:37
PROVIDERS: ADMIT Psychiatry & Neurology Psychiatry; ATTEND Psychiatry & Neurology Psychiatry
DX: F03.91 Unspecified dementia, unspecified severity, with behavioral disturbance (principal); J44.9 Chronic obstructive pulmonary disease, unspecified; G20 Parkinson's disease; I10 Essential (primary) hypertension; E11.9 Type 2 diabetes mellitus without complications; E78.5 Hyperlipidemia, unspecified; F20.9 Schizophrenia, unspecified; G40.909 Epilepsy, unspecified, not intractable, without status epilepticus; F29 Unspecified psychosis not due to a substance or known physiological condition; M19.90 Unspecified osteoarthritis, unspecified site; K21.9 Gastro-esophageal reflux disease without esophagitis; Z79.4 Long term (current) use of insulin; Z91.81 History of falling; Z91.14 Patient's other noncompliance with medication regimen; Z88.8 Allergy status to other drugs, medicaments and biological substances; Z91.041 Radiographic dye allergy status; Z91.018 Allergy to other foods; Z88.2 Allergy status to sulfonamides; Z90.49 Acquired absence of other specified parts of digestive tract; Z90.710 Acquired absence of both cervix and uterus
CPT/HCPCS: 36415-UA; 80048-TC; 80061-TC; 80074-90; 81001-TC; 82948-90; 84443-TC; 85025-TC; 86592-TC; 90899; 93005; J1631; J1815; J7799; Z7610

== ENCOUNTER 2016-12-03 13:34 | Inpatient (IN) | payer MEDICARE, MEDICAID ==
--- NOTE | 2016-12-03 14:05 | ED Physician Chart ---
ED Chief Complaint/HPI - Patient Information Date Seen:: 12/03/16 Time Seen:: 13:50 Chief Complaint:: Dementia and poor oral intake History of Present Illness:: 81 yo female was noted to have behavior disturbance by talking to herself at custodial. She also has poor oral intake for 5 days. She was brought to ER from custodial to be further evaluated. The patient is oriented to her own name and place. Allergies:: Allergies Allergy/AdvReac Type Severity Reaction Status Date / Time iodine Allergy Verified 10/14/15 17:03 blueberry AdvReac Verified 10/14/15 17:03 prochlorperazine AdvReac Verified 10/14/15 17:03 [From Compazine] prochlorperazine edisylate AdvReac Verified 10/14/15 17:03 [From Compazine] prochlorperazine maleate AdvReac Verified 10/14/15 17:03 [From Compazine] sulfacetamide sodium AdvReac Verified 10/14/15 17:03 [From Sulfamide] ED Review of Systems - Review of Systems General/Constitutional: No fever, No chills, Weakness, Loss of appetite Skin: No skin lesions Head: No headache Eyes: No loss of vision ENT: No earache Neck: No neck pain Cardio Vascular: No chest pain Pulmonary: No SOB GI: No nausea, No vomiting Musculoskeletal: Other (edema of bilateral lower extremities) Psychiatric: Auditory hallucination Neurological: Other (dementia) ED Past Medical History - Past Medical History Past Medical History: HTN, DM, Asthma/COPD, PUD/GERD, Dementia, Other (edema, parkinson, psychosis, ) Social History: Non Smoker, No Alcohol, No Drug Use Surgical History: None Psychiatricy History: Dementia Family Medical History - Family Member Mother History Unknown: Yes Ethnicity: Unknown Living Status: Unknown Hx Family Cancer: (Unknown) Hx Family Coronary Artery Disease: (Unknown) Hx Family Congestive Heart Failure: (Unknown) Hx Family Hypertension: (Unknown) Hx Family Stroke: (Unknown) Hx Family Diabetes: (Unknown) Hx Family Seizures: (Unknown) Hx Family Dementia: (Unknown) Hx Family AIDS: (Unknown) Hx Family HIV: No Hx Family COPD: (Unknown) Hx Family Hepatitis: (Unknown) Hx Family Psychiatric Problems: (Unknown) Hx Family Tuberculosis: (Unknown) ED Physical Exam - Physical Examination General/Constitutional: Well-developed, well-nourished, No distress Head: Atraumatic Eyes: PERRL, EOMI Skin: Nl inspection ENMT: External ears, nose nl Neck: Full ROM w/o pain Cardio Vascular: RRR, No murmur, gallop, rubs, NL S1 S2, Carotid/Femoral/Distal pulses equal bilaterally GI: No tenderness/rebounding/guarding Other Extremities comments:: edema of bilateral lower extremities Other Neuro/Psych comments:: oriented to self and hospital ED Labs/Radiology/EKG Results - Lab Results Results: UA showed evidence of UTI ED Assessment - Assessment General Assessment: 81 yo female has dementia with recent behavioral disturbance. She also has UTI. Critical Care Time: 30 Excludes all billable procedures: Yes This condition life threatening/high prob of deterioration: No Assessment/Comments:: Rocephin 1g IM x 1 To be further evaluated and managed by psych inpatient services ED Septic Shock - . Is Septic Shock (SBP<90, OR Lactate>4 mmol\L) present?: No ED Discharge Plan - Patient Disposition Admit/Discharge/Transfer: Other Care w/in this hosp
[2016-12-03 15:31] LABS: % BASOPHILS 0.5 % (0.0-2.0); % EOSINOPHILS 1.4 % (0.0-5.0); % LYMPHOCYTES 31.9 % (20.0-50.0); % MONOCYTES 8.8 % (2.0-10.0); % NEUTROPHILS 57.4 % (40.0-80.0); HEMATOCRIT 43.5 % (41.0-60); HEMOGLOBIN 14.7 gm/dL (12-16); MEAN CELL VOLUME 92.6 fl (81-100); MEAN CORPUSCULAR HEMOGLOBIN 31.3 pg (27.0-31.0); MEAN CORPUSCULAR HGB CONC 33.8 pg (28.0-36.0); MEAN PLATELET VOLUME 8.3 fl; PLATELET COUNT 179 Th/cmm (150-400); RED BLOOD COUNT 4.69 Mil/cmm (3.80-5.20); RED CELL DISTRIBUTION WIDTH 12.5 % (11.5-20.0); WHITE BLOOD COUNT 5.3 Th/cmm (4.8-10.8)
[2016-12-03 15:46] LABS: ALB/GLOB RATIO 1.5 (1.0-1.8); ALKALINE PHOSPHATASE 98 U/L (34-104); ANION GAP 7.6 (7.0-16.0); BILIRUBIN,TOTAL 0.3 mg/dL (0.3-1.0); BUN - UREA NITROGEN 13 mg/dL (7-25); BUN/CREATININE RATIO 21.7; CALCIUM SERUM 9.3 mg/dL (8.6-10.3); CARBON DIOXIDE 28.4 mEq/L (21.0-31.0); CHLORIDE 106 mEq/L (98-107); CREATININE - SERUM 0.6 mg/dL (0.6-1.2); GLUCOSE 129 mg/dL (70-105); SGOT 16 U/L (13-39); SGPT/ALT 8 U/L (7-52); SODIUM SERUM 138 mEq/L (136-145)
[2016-12-03 16:50] LABS: URINE BILIRUBIN NEGATIVE (NEGATIVE); URINE BLOOD NEGATIVE (NEGATIVE); URINE GLUCOSE (UA) NEGATIVE (NEGATIVE); URINE KETONE NEGATIVE (NEGATIVE); URINE PH 6.5 (4.6 - 8.0); URINE PROTEIN NEGATIVE (NEGATIVE); URINE UROBILINOGEN 0.2 E.U./dL (0.2 - 1.0)
[2016-12-03 16:56] LABS: URINE COLOR YELLOW
[2016-12-03 16:57] LABS: URINE BACTERIA FEW /hpf (NONE SEEN); URINE EPITHELIAL CELLS FEW /lpf (FEW); URINE RBC NONE SEEN /hpf (0-5)
[2016-12-03 22:04] VITALS: BP 130/66
[2016-12-04] MEDS ORDERED: Magnesium Hydroxide (MOM) 30 mL UDC PO PRN (10:38)
[2016-12-04] MEDS ORDERED: Maalox 30 mL Cup PO PRN (10:38)
--- NOTE | 2016-12-04 11:51 | History & Physical ---
ADMIT DATE: PATIENT'S ID: An 81-year-old female. REQUESTING PHYSICIAN: Dr. Crystal. CHIEF COMPLAINT: They brought me here for my lab test. HISTORY OF PRESENT ILLNESS: An 81-year-old female who I follow her at [facility] along with Dr. Crystal [place] [facility] [place] was noted to have a destructive behavior associated with refusing to take p.o. medications, and p.o. intake. When the patient was evaluated, the patient was cleared by Emergency Room MD to be admitted at [facility]. Now, the patient is admitted for further management of her psychiatric illness. The patient has a significant medical problem. I have been asked to manage medical problems. PAST MEDICAL HISTORY: Remarkable for: 1. Diabetes. 2. Seizure disorder. 3. Hypertension. 4. Hyperlipidemia. 5. Dementia. 6. Degenerative joint disease. 7. Urinary incontinence. 8. Osteoporosis. MEDICATIONS AT HOME: Has been reviewed and reconciled appropriately. ALLERGIES: The patient is ALLERGIC TO IODINE, BLUE CEBALLOS, PROCHLORPERAZINE, COMPAZINE, SULFACETAMIDE. SOCIAL HISTORY: The patient lives in a halfway. SOCIAL HISTORY: She is a resident of halfway. There is no history of smoking cigarette, alcohol or drug use. The patient does have previous history of smoking many, many years ago. FAMILY MEDICAL HISTORY: Remarkable for diabetes and cancer. REVIEW OF SYSTEMS: The patient is currently cooperative, and further questioning, the patient denies any chest pain, shortness of breath, palpitation, dizziness, nausea, vomiting, diarrhea, dysuria, hematuria, hematochezia, melena. No seizure or syncopal episode, no weight loss or weight gain. No history of any tingling, numbness. PHYSICAL EXAMINATION: GENERAL: The patient is alert, awake, lying in the bed without any acute distress. VITAL SIGNS: Temperature 97.3, pulse is 84, respiratory rate is 18, blood pressure 147/65. SKIN: Warm to touch. Adequate skin turgor. No petechia, no purpura. HEENT: Normocephalic, atraumatic. Extraocular muscles are intact. Tongue was pink and coated. Absent upper and lower dentition noted. No oral lesion noted. No exudate. No sinus tenderness. External auditory canal and tympanic membranes are well visualized. NECK: Supple, no JVD, no hepatojugular reflex. No lymphadenopathy, thyromegaly or carotid bruit. HEART: Both heart sounds are regular. No S3, no S4, no murmur. CHEST: Lung equal in expansion, no wheezing, no crackles. ABDOMEN: Soft. No guarding, no rigidity. Liver and spleen not palpable. No palpable mass. EXTREMITIES: Remarkable for chronic lymphedema, peripheral pulses +2. No calf tenderness noted. NEUROLOGIC: Alert, awake, follows commands. Cranial nerves 2-12 are intact. Power in upper and lower extremities 5-. Sensation to touch is intact. [place] in both toes are going down. No cerebral sign. AVAILABLE DIAGNOSTIC DATA: White count of 5.3, hemoglobin 14.7, platelet count 179, sodium 138, potassium 4.0, chloride 106, CO2 28.4, BUN and creatinine is 13 and 0.6. Liver functions are normal. Urine is unremarkable. Chest x-ray was done, which is no infiltrate, no congestion. EKG is unavailable for my review. CLINICAL IMPRESSION: 1. Acute exacerbation of psychiatric disorder. 2. Alzheimer's dementia. 3. Diabetes mellitus. 4. Chronic obstructive pulmonary disease. 5. Degenerative joint disease. 6. Urinary incontinence. 7. Seizure disorder. 8. Gastroesophageal reflux disease. 9. Parkinson's disease. 10. Fall risk. PLAN: The patient is admitted at Geropsych Unit by psychiatrist for psychiatric evaluation, and management deferred to psychiatrist. We will resume her medication for dementia which include Aricept and Namenda. Sinemet for Parkinson's disease. Continue Actos as the patient was receiving along with Glucoscan a.c. and at bedtime and covering the blood sugar with sliding scale regular insulin. The patient is to continue her medication for seizure along with seizure precautions. Continue proton pump inhibitor along with Ditropan. We will provide fall precautions as well. The patient will be followed by us during the stay at the hospital. The patient is medically stable to participate in the activity per the Geropsych Unit. I sincerely thank you, Dr. Crystal, for giving me the opportunity to participate in the patient of yours. JOB# [id number]
[2016-12-04] MEDS: INSULIN ASPART, RECOMBINANT 100 UNITS/ML SUBQ SCH ×3 (12:19→21:37)
[2016-12-04] MEDS: Oxybutynin Chloride 5 mg ER Tab PO SCH (21:37)
[2016-12-05] MEDS: INSULIN ASPART, RECOMBINANT 100 UNITS/ML SUBQ SCH ×4 (06:40→21:01)
--- NOTE | 2016-12-05 07:27 | Consultation ---
DATE OF CONSULTATION: 12/04/2016 The patient was seen and evaluated. The patient's chart reviewed. This is Dr. Ortega covering for Dr. Crystal. CHIEF COMPLAINT: Brought in here after the patient was observed to be destructive behavior, refusing to take her p.o. medications and aggressive behavior. HISTORY OF PRESENT ILLNESS: This is an 81-year-old female brought here from [facility], who presented very psychotic, disorganized, refusing to take her p.o. medications and was observed to be very irritable. Today on [id number] evaluation, the patient presented very irritable, agitated, responding to internal stimuli, unable to give much coherent conversation. PAST MEDICAL HISTORY: Includes diabetes, seizure disorder, hypertension, hyperlipidemia, dementia, degenerative joint disease, urinary incontinence and also osteoporosis. HOME MEDICATIONS: Include Dilantin, Colace, donepezil 10 mg a day, enalapril, Gabapentin 100 mg p.o. b.i.d., Lasix, memantine 10 mg twice a day, milk of magnesia, oxybutynin and also pioglitazone, Sinemet and also Tylenol. ALLERGIES TO MEDICATIONS: INCLUDE IODINE, BLUEBERRY, PROCHLORPERAZINE, COMPAZINE, SULFA, ATIVAN. SOCIAL HISTORY: Currently living in a prison. Denies any sexual or physical and verbal abuse. Denies any abuse. Also, denies any history of alcohol or drug use. No previous history of cannabis. FAMILY PSYCHIATRIC HISTORY: Denies. History of inpatient or outpatient psychiatry, multiple ____. The patient currently lives at home. MENTAL STATUS EXAMINATION: She is in her room, calm, eating, easily agitated, irritable, observed to be responding to internal stimuli, unable to be engaged in linear conversation. She presents very disorganized. Limited insight, judgment and impulse control and observed to be responding. ASSESSMENT AND PLAN: The patient is an 81-year-old female who still presents very disorganized, psychotic, unable to formulate a safety plan outside the structured environment. We will continue monitoring and evaluating and continue with primary psychiatrist treatment plan and goals. We will continue with the donepezil at 10 mg a day, gabapentin 100 mg p.o. b.i.d. ____ anxiety, Namenda at 10 mg p.o. b.i.d. ____ the current doses with Seroquel at 12.5 mg p.o. b.i.d. to target the patient's disorganized thought process. PRIMARY DIAGNOSIS: Unspecified psychosis, ____. SECONDARY DIAGNOSES: Rule out schizophrenia, rule out dementia with severe behavioral disturbances; psychosis. MEDICAL DIAGNOSIS: As noted above. PLAN: 1.Admit the patient. 2.Initiate medications as noted above. 3.Plan was discussed in great detail with staff members. 4.Start ____individual therapy. 5.Obtain more collateral information. ESTIMATED LENGTH OF STAY: Between 5-10 days. ____ no suicidal or homicidal. Good psychiatric followup. No psychotic behavior or disorganized thought processes. [facility]# [id number]
[2016-12-05] MEDS: Multivitamin Tab PO SCH (09:09)
--- NOTE | 2016-12-05 13:03 | General Progress Note ---
Subjective - Review of Systems Subjective: Patient is seen and examined. No new complaints. Chart reviewed. Objective - Results Result Diagrams: 12/03/16 15:25 12/03/16 15:25 Recent Labs: Laboratory Last Values WBC 5.3 Th/cmm (4.8-10.8) 12/03/16 15:25 RBC 4.69 Mil/cmm (3.80-5.20) 12/03/16 15:25 Hgb 14.7 gm/dL (12-16) 12/03/16 15:25 Hct 43.5 % (41.0-60) 12/03/16 15:25 MCV 92.6 fl (81-100) 12/03/16 15:25 MCH 31.3 pg (27.0-31.0) H 12/03/16 15:25 MCHC Differential 33.8 pg (28.0-36.0) 12/03/16 15:25 RDW 12.5 % (11.5-20.0) 12/03/16 15:25 Plt Count 179 Th/cmm (150-400) 12/03/16 15:25 MPV 8.3 fl 12/03/16 15:25 Neutrophils % 57.4 % (40.0-80.0) 12/03/16 15:25 Lymphocytes % 31.9 % (20.0-50.0) 12/03/16 15:25 Monocytes % 8.8 % (2.0-10.0) 12/03/16 15:25 Eosinophils % 1.4 % (0.0-5.0) 12/03/16 15:25 Basophils % 0.5 % (0.0-2.0) 12/03/16 15:25 Sodium 138 mEq/L (136-145) 12/03/16 15:25 Potassium 4.0 mEq/L (3.5-5.1) 12/03/16 15:25 Chloride 106 mEq/L (98-107) 12/03/16 15:25 Carbon Dioxide 28.4 mEq/L (21.0-31.0) 12/03/16 15:25 Anion Gap 7.6 (7.0-16.0) 12/03/16 15:25 BUN 13 mg/dL (7-25) 12/03/16 15:25 Creatinine 0.6 mg/dL (0.6-1.2) 12/03/16 15:25 Est GFR ( Amer) TNP 12/03/16 15:25 Est GFR (Non-Af Amer) TNP 12/03/16 15:25 BUN/Creatinine Ratio 21.7 12/03/16 15:25 Glucose 129 mg/dL (70-105) H 12/03/16 15:25 Calcium 9.3 mg/dL (8.6-10.3) 12/03/16 15:25 Total Bilirubin 0.3 mg/dL (0.3-1.0) 12/03/16 15:25 AST 16 U/L (13-39) 12/03/16 15:25 ALT 8 U/L (7-52) 12/03/16 15:25 Alkaline Phosphatase 98 U/L (34-104) 12/03/16 15:25 Total Protein 7.1 gm/dL (6.0-8.3) 12/03/16 15:25 Albumin 4.3 gm/dL (3.7-5.3) 12/03/16 15:25 Globulin 2.8 gm/dL 12/03/16 15:25 Albumin/Globulin Ratio 1.5 (1.0-1.8) 12/03/16 15:25 Urine Source RANDOM 12/03/16 15:10 Urine Color YELLOW 12/03/16 15:10 Urine Clarity CLEAR (CLEAR) 12/03/16 15:10 Urine pH 6.5 (4.6 - 8.0) 12/03/16 15:10 Ur Specific [place] 1.010 (1.005-1.030) 12/03/16 15:10 Urine Protein NEGATIVE mg/dL (NEGATIVE) 12/03/16 15:10 Urine Glucose (UA) NEGATIVE mg/dL (NEGATIVE) 12/03/16 15:10 Urine Ketones NEGATIVE mg/dL (NEGATIVE) 12/03/16 15:10 Urine Blood NEGATIVE (NEGATIVE) 12/03/16 15:10 Urine Nitrate NEGATIVE (NEGATIVE) 12/03/16 15:10 Urine Bilirubin NEGATIVE (NEGATIVE) 12/03/16 15:10 Urine Urobilinogen 0.2 E.U./dL (0.2 - 1.0) 12/03/16 15:10 Ur Leukocyte Esterase TRACE (NEGATIVE) H 12/03/16 15:10 Urine RBC NONE SEEN /hpf (0-5) 12/03/16 15:10 Urine WBC 2-5 /hpf (0-5) 12/03/16 15:10 Ur Epithelial Cells FEW /lpf (FEW) 12/03/16 15:10 Urine Bacteria FEW /hpf (NONE SEEN) 12/03/16 15:10 - Physical Exam Vitals and I&O: Vital Signs Temp 97.8 F 12/05/16 06:45 Pulse 74 12/05/16 10:48 Resp 19 12/05/16 10:48 BP 150/74 12/05/16 09:08 Pulse Ox 98 12/05/16 06:45 Intake & Output 12/04/16 12/05/16 12/05/16 18:59 06:59 18:59 Intake Total 1000 240 Balance 1000 240 Intake: Oral 1000 240 Other: # Voids 3 1 # Bowel Movements 1 Active Medications: Current Medications Acetaminophen (Tylenol) 650 mg PO Q4HR PRN PRN Reason: Pain Stop: 02/02/17 10:37 Al Hydrox/Mg Hydrox/Simethicone (Maalox) 30 ml PO Q4HR PRN PRN Reason: GI DISTRESS Stop: 02/02/17 10:37 Bisacodyl (Dulcolax 10 Mg Supp) 10 mg RC DAILY PRN PRN Reason: Constipation Stop: 02/02/17 10:37 Carbidopa/Levodopa (Sinemet 25 Mg-250 Mg) 1 tab PO QID EMILY Stop: 02/02/17 12:59 Last Admin: 12/05/16 09:08 Dose: Not Given Donepezil HCl (Aricept) 10 mg PO HS [facility] Stop: 02/02/17 20:59 Last Admin: 12/04/16 21:36 Dose: Not Given Enalapril Maleate (Vasotec) 10 mg PO DAILY [facility] Stop: 02/03/17 08:59 Last Admin: 12/05/16 09:08 Dose: Not Given Gabapentin (Neurontin) 100 mg PO BID [facility] Stop: 02/02/17 16:59 Last Admin: 12/05/16 09:09 Dose: Not Given Insulin Aspart (Novolog) 0 units SUBQ ACHS EMILY PRN Reason: Protocol Stop: 02/02/17 11:29 Last Admin: 12/05/16 12:11 Dose: Not Given Lorazepam (Ativan) 0.5 mg PO Q6H PRN; Protocol PRN Reason: Anxiety/Agitation Stop: 02/01/17 22:03 Magnesium Hydroxide (Milk Of Magnesia) 30 ml PO DAILY PRN PRN Reason: Constipation Stop: 02/02/17 10:37 Memantine (Namenda) 10 mg PO BID [facility] Stop: 02/02/17 16:59 Last Admin: 12/05/16 09:09 Dose: Not Given Multivitamins/Vitamin C (Theragran) 1 tab PO DAILY [facility] Stop: 02/03/17 08:59 Last Admin: 12/05/16 09:09 Dose: Not Given Oxybutynin Chloride (Ditropan Xl) 5 mg PO HS [facility] Stop: 02/02/17 20:59 Last Admin: 12/04/16 21:37 Dose: Not Given Phenytoin (Dilantin) 300 mg PO HS [facility] Stop: 02/02/17 20:59 Last Admin: 12/04/16 21:37 Dose: Not Given Pioglitazone HCl (Actos) 30 mg PO DAILY [facility] Stop: 02/03/17 08:59 Last Admin: 12/05/16 09:09 Dose: Not Given Zolpidem Tartrate (Ambien) 5 mg PO HS PRN PRN Reason: Insomnia Stop: 02/01/17 22:03 General: Alert, Cooperative, No acute distress HEENT: Atraumatic, PERRLA, EOMI Neck: Supple, +2 carotid pulse wo bruit Cardiovascular: Regular rate, Normal S1, Normal S2 Lungs: Clear to auscultation Abdomen: Bowel sounds, Soft Extremities: Other (No edema,cynosis,clubbing. Diffuse DJD changes.) Psych/Mental Status: Mood NL - Procedures Procedures: Procedures Procedure Code Date OTHER GROUP THERAPY 94.44 08/26/14 Assessment/Plan - Problem List Patient Problems: All Active Problems Agitation (Acute) R45.1 - Assessment Assessment: Diabetes Mellitus. Parkinson's disease. Detrusor instability Hypertension. DJD Seizure disorder. Alzheimer's dementia. Psychiatric disorder. Fall risk. - Plan Plan: Monitor glucose and vitals. Fall Precautions. Actos for DM. sinemet for parkinson's disease Ditropan for urinary incontinance. Seizure meds and precautions. Dementia meds. Psych follow up. Fall precautions. General nursing care. Continue current care. Discussed with staff Nutritional Asmnt/Malnutr-PDOC - Dietary Evaluation Malnutrition Findings (Please click <Entered> for more info): Nutritional Asmnt/Malnutrition Start: 12/04/16 10: 19 Text: Status: Complete Freq: Document 12/04/16 10:19 [email or web address] (Rec: 12/04/16 10:26 KEM [email or web address] [email or web address]) Nutritional Asmnt/Malnutrition Patient General Information Diagnosis Not Eating (RFV) Pertinent Medical Hx/Surgical Hx HTN, DM, asthma/COPD, PUD/GERD , dementia, parkinson's disease, edema, psychosis Reported poor PO intake x 5 days Subjective Information Pt sitting up watching television at time of visit, Pt reports "great" appetite and that she eats" everything. " Current Diet Order/ Nutrition Support Mechanical soft low fat, low cholesterol, MOISES, CCHO Patient / S.O Not Indicated Pertinent Medications Ambien, ativan Pertinent Labs Na 138, K 4.0, Cl 106, CO2 28. 4, BUN 13, Cr 0.6, Ca 9.3, glucsoe 129 Nutritional Hx/Data Height 1.68 m Height (Calculated Centimeters) 167.6 Current Weight (lbs) 82.554 kg Weight (Calculated Kilograms) 82.6 Weight (Calculated Grams) 53079.8 Recent Weight Change No Weight Status Approriate GI Symptoms GI Symptoms None Difficult in: Chewing Food Allergies Yes Cultural/Ethnic/Yazdanism Belief Unknown Usual diet at home unknown Skin Integrity/Comment: vicente score 20 Estimated Nutritional Goals BEE in Kcals: Using Current wt Calories/Kcals/Kg 25-30kcals/kg Kcals Calculated 5-2490kcals/day Protein: Using Current wt Protein g/k-1.2g/kg Protein Calculated 83-100g/day Fluid: ml 2075-2490ml/day (1ml/kcal) Nutritional Problem 1. Problem Problem Inadequate oral intake related to Etiology cognition vs appetite as evidenced by Signs/Symptoms: admitted for Poor PO intake. Intervention/Recommendation Comments Recommend continuing mechanical soft low fat low cholesterol, CCHO, MOISES diet Recommend if medically appropriate appetite stimulant . Expected Outcomes/Goals Expected Outcomes/Goals PO intake >75% of meals.
--- NOTE | 2016-12-05 19:35 | Progress Notes ---
DATE: 12/05/2016 SUBJECTIVE: The patient was seen and evaluated. The patient's chart reviewed. OBJECTIVE: VITAL SIGNS: Reviewed, stable. Overnight nursing staff reported that the patient has been in her room, withdrawn, isolated, and observed to be responding and talking to herself and refusing medications. Today on [id number] evaluation, the patient is selectively mute, very distraught. When attempting to discuss about her emotions and her well-being, the patient becomes more suspicious and impaired and refuses to be interviewed. MENTAL STATUS EXAMINATION: Still very suspicious, refusing to be interviewed, poor insight, judgment, and impulse control. ASSESSMENT AND PLAN: The patient is an 81-year-old female who has been noncompliant with medications, resulting in agitated and aggressive behavior who continues to be observed to respond, unable to formulate a safe plan. We will continue monitoring and evaluating as she may be a candidate for potential Riese as early as tomorrow. [facility]# [id number]
[2016-12-05] MEDS: Oxybutynin Chloride 5 mg ER Tab PO SCH (20:47)
[2016-12-06] MEDS: INSULIN ASPART, RECOMBINANT 100 UNITS/ML SUBQ SCH ×3 (06:46→20:38)
[2016-12-06] MEDS: Multivitamin Tab PO SCH (12:04)
[2016-12-06] MEDS ORDERED: Acetaminophen 500 MG TAB PO PRN (20:07)
[2016-12-06] MEDS: Oxybutynin Chloride 5 mg ER Tab PO SCH (20:38)
--- NOTE | 2016-12-07 02:43 | Progress Notes ---
DATE: 12/06/2016 Case was discussed with staff of the patient, reviewed records. The patient is a patient of mine who was admitted here on 12/03/2016. The patient was acting aggressive, refusing her medication, and self-destructive. The patient was sent from [facility]. She is not taking the medication, refusing medication. I talked to her today, she refused. She said I am not her doctor, I am not really doctor that a clean doctor told her she does not need to be on medications. This is actually how she presents every time. She is unpredictable, impulsive, needing redirection. This actually happens every time she gets admitted, she gets paranoid and she will start refusing her medication, so I will be initiating Haldol, so later we can initiate also Haldol Decanoate. I did try to ____ side effects of the medication, she would not give me any other reasons other than she does not need medication and she was told she does not need it by the clean doctor. We will continue the patient in group therapy, milieu therapy, and adjust medications as needed. JOB# [id number]
[2016-12-07] MEDS: INSULIN ASPART, RECOMBINANT 100 UNITS/ML SUBQ SCH ×4 (06:38→20:15)
[2016-12-07 07:58] LABS: % BASOPHILS 0.6 % (0.0-2.0); % EOSINOPHILS 0.8 % (0.0-5.0); % LYMPHOCYTES 15.8 % (20.0-50.0); % MONOCYTES 7.9 % (2.0-10.0); % NEUTROPHILS 74.9 % (40.0-80.0); HEMATOCRIT 41.1 % (41.0-60); HEMOGLOBIN 13.9 gm/dL (12-16); MEAN CELL VOLUME 92.8 fl (81-100); MEAN CORPUSCULAR HEMOGLOBIN 31.4 pg (27.0-31.0); MEAN CORPUSCULAR HGB CONC 33.9 pg (28.0-36.0); MEAN PLATELET VOLUME 8.7 fl; PLATELET COUNT 158 Th/cmm (150-400); RED BLOOD COUNT 4.43 Mil/cmm (3.80-5.20); RED CELL DISTRIBUTION WIDTH 12.3 % (11.5-20.0)
[2016-12-07 07:59] LABS: WHITE BLOOD COUNT 7.9 Th/cmm (4.8-10.8)
[2016-12-07 08:13] LABS: ALB/GLOB RATIO 1.2 (1.0-1.8); ALKALINE PHOSPHATASE 86 U/L (34-104); ANION GAP 8.3 (7.0-16.0); BILIRUBIN,TOTAL 0.5 mg/dL (0.3-1.0); BUN - UREA NITROGEN 9 mg/dL (7-25); BUN/CREATININE RATIO 22.5; CARBON DIOXIDE 27.5 mEq/L (21.0-31.0); CHLORIDE 106 mEq/L (98-107); CREATININE - SERUM 0.4 mg/dL (0.6-1.2); GLUCOSE 122 mg/dL (70-105); POTASSIUM SERUM 3.8 mEq/L (3.5-5.1); SGOT 11 U/L (13-39); SGPT/ALT 6 U/L (7-52); SODIUM SERUM 138 mEq/L (136-145)
[2016-12-07] MEDS: Multivitamin Tab PO SCH (08:50)
[2016-12-07] MEDS ORDERED: Probiotic Screen MC PRN (15:50)
[2016-12-07] MEDS: Lactobacillus Rhamnosus 10 Billion CFU Capsule PO SCH (16:11)
[2016-12-07] MEDS: Oxybutynin Chloride 5 mg ER Tab PO SCH (20:15)
--- NOTE | 2016-12-08 00:24 | Progress Notes ---
DATE: 12/03/2016 Case was discussed with staff of the patient, reviewed records. The patient continues to refuse medication. She reports she is not on any medication and asked what medication she will take. She said she does not want to take Seroquel, it made her feel crazy. I asked her if she will take Risperdal. She said she will think about it. I am not sure if she means business. She says she does not need to be on any medications though she was not given any medication. I discussed with her the side effects of Haldol that I initiated yesterday. The patient, however, believes I am not her psychiatrist, I am not a clean one. She is paranoid, delusional, unable to make safe plan for self-care, so also initiating a Riese on her. We will to work with the patient in group therapy, milieu therapy, and adjust medication as needed. JOB# [id number]
[2016-12-08] MEDS: INSULIN ASPART, RECOMBINANT 100 UNITS/ML SUBQ SCH ×4 (06:32→21:00)
[2016-12-08] MEDS: Multivitamin Tab PO SCH (08:13)
[2016-12-08] MEDS: Lactobacillus Rhamnosus 10 Billion CFU Capsule PO SCH (08:13)
--- NOTE | 2016-12-08 17:01 | Progress Notes ---
DATE: 12/08/2016 Case was discussed with staff of the patient, reviewed records. The patient continues to be unpredictable, impulsive. She stays in bed, refusing medications. She believes she is not supposed to be on medication. I explained to her that she needs to. I asked what medication she would take, she says she would not take any. She said that I need to. I asked her if she ever had side effects, she said she has tremors. However, she reports it was because of the Sinemet and I did discuss with the patient the side effects of the medication that I will be giving her such as Haldol and I discussed with her that if she develops tremor, I would be happy to change it to give her a medication to help chuy the tremors; however, she reports she does not need it and I am a wake doctor. I will consider the patient pursuing and receiving group therapy, milieu therapy, and adjust the medication as needed. JOB# [id number]
[2016-12-08] MEDS: Oxybutynin Chloride 5 mg ER Tab PO SCH (21:12)
[2016-12-09] MEDS: INSULIN ASPART, RECOMBINANT 100 UNITS/ML SUBQ SCH ×4 (07:03→21:06)
[2016-12-09] MEDS: Multivitamin Tab PO SCH (08:06)
[2016-12-09] MEDS: Lactobacillus Rhamnosus 10 Billion CFU Capsule PO SCH (08:06)
--- NOTE | 2016-12-09 14:02 | Internal Medicine Prog Note ---
Internal Medicine Subjective - Subjective Service Date: 12/09/16 Patient seen and examined:: with staff Patient is:: awake, verbal Per staff patient has:: no adverse event, tolerating meds Internal Medicine Objective - Results Result Diagrams: 12/07/16 06:50 12/07/16 06:50 Recent Labs: Laboratory Last Values WBC 7.9 Th/cmm (4.8-10.8) D 12/07/16 06:50 RBC 4.43 Mil/cmm (3.80-5.20) 12/07/16 06:50 Hgb 13.9 gm/dL (12-16) 12/07/16 06:50 Hct 41.1 % (41.0-60) 12/07/16 06:50 MCV 92.8 fl (81-100) 12/07/16 06:50 MCH 31.4 pg (27.0-31.0) H 12/07/16 06:50 MCHC Differential 33.9 pg (28.0-36.0) 12/07/16 06:50 RDW 12.3 % (11.5-20.0) 12/07/16 06:50 Plt Count 158 Th/cmm (150-400) 12/07/16 06:50 MPV 8.7 fl 12/07/16 06:50 Neutrophils % 74.9 % (40.0-80.0) 12/07/16 06:50 Lymphocytes % 15.8 % (20.0-50.0) L 12/07/16 06:50 Monocytes % 7.9 % (2.0-10.0) 12/07/16 06:50 Eosinophils % 0.8 % (0.0-5.0) 12/07/16 06:50 Basophils % 0.6 % (0.0-2.0) 12/07/16 06:50 Sodium 138 mEq/L (136-145) 12/07/16 06:50 Potassium 3.8 mEq/L (3.5-5.1) 12/07/16 06:50 Chloride 106 mEq/L (98-107) 12/07/16 06:50 Carbon Dioxide 27.5 mEq/L (21.0-31.0) 12/07/16 06:50 Anion Gap 8.3 (7.0-16.0) 12/07/16 06:50 BUN 9 mg/dL (7-25) 12/07/16 06:50 Creatinine 0.4 mg/dL (0.6-1.2) L 12/07/16 06:50 Est GFR ( Amer) TNP 12/07/16 06:50 Est GFR (Non-Af Amer) TNP 12/07/16 06:50 BUN/Creatinine Ratio 22.5 12/07/16 06:50 Glucose 122 mg/dL (70-105) H 12/07/16 06:50 POC Glucose 130 MG/DL (70 - 105) H 12/09/16 06:36 Calcium 9.0 mg/dL (8.6-10.3) 12/07/16 06:50 Total Bilirubin 0.5 mg/dL (0.3-1.0) 12/07/16 06:50 AST 11 U/L (13-39) L 12/07/16 06:50 ALT 6 U/L (7-52) L 12/07/16 06:50 Alkaline Phosphatase 86 U/L (34-104) 12/07/16 06:50 Total Protein 6.9 gm/dL (6.0-8.3) 12/07/16 06:50 Albumin 3.8 gm/dL (3.7-5.3) 12/07/16 06:50 Globulin 3.1 gm/dL 12/07/16 06:50 Albumin/Globulin Ratio 1.2 (1.0-1.8) 12/07/16 06:50 Urine Source RANDOM 12/03/16 15:10 Urine Color YELLOW 12/03/16 15:10 Urine Clarity CLEAR (CLEAR) 12/03/16 15:10 Urine pH 6.5 (4.6 - 8.0) 12/03/16 15:10 Ur Specific [place] 1.010 (1.005-1.030) 12/03/16 15:10 Urine Protein NEGATIVE mg/dL (NEGATIVE) 12/03/16 15:10 Urine Glucose (UA) NEGATIVE mg/dL (NEGATIVE) 12/03/16 15:10 Urine Ketones NEGATIVE mg/dL (NEGATIVE) 12/03/16 15:10 Urine Blood NEGATIVE (NEGATIVE) 12/03/16 15:10 Urine Nitrate NEGATIVE (NEGATIVE) 12/03/16 15:10 Urine Bilirubin NEGATIVE (NEGATIVE) 12/03/16 15:10 Urine Urobilinogen 0.2 E.U./dL (0.2 - 1.0) 12/03/16 15:10 Ur Leukocyte Esterase TRACE (NEGATIVE) H 12/03/16 15:10 Urine RBC NONE SEEN /hpf (0-5) 12/03/16 15:10 Urine WBC 2-5 /hpf (0-5) 12/03/16 15:10 Ur Epithelial Cells FEW /lpf (FEW) 12/03/16 15:10 Urine Bacteria FEW /hpf (NONE SEEN) 12/03/16 15:10 - Physical Exam Vitals and I&O: Vital Signs Temp 97.8 F 12/09/16 06:28 Pulse 89 12/09/16 06:28 Resp 19 12/09/16 06:28 BP 134/67 12/09/16 06:28 Pulse Ox 98 12/09/16 06:28 Intake & Output 12/08/16 12/09/16 12/09/16 18:59 06:59 18:59 Intake Total 900 120 Balance 900 120 Weight (lbs) 170 lb 1.6 oz Intake: Oral 900 120 Other: # Voids 3 3 # Bowel Movements 1 Active Medications: Current Medications Acetaminophen (Tylenol) 650 mg PO Q4HR PRN PRN Reason: Pain Stop: 02/02/17 10:37 Acetaminophen (Tylenol Extra Strength) 500 mg PO Q6H PRN PRN Reason: Fever > 101 Stop: 02/04/17 20:06 Al Hydrox/Mg Hydrox/Simethicone (Maalox) 30 ml PO Q4HR PRN PRN Reason: GI DISTRESS Stop: 02/02/17 10:37 Bisacodyl (Dulcolax 10 Mg Supp) 10 mg RC DAILY PRN PRN Reason: Constipation Stop: 02/02/17 10:37 Carbidopa/Levodopa (Sinemet 25 Mg-250 Mg) 1 tab PO QID [facility] Stop: 02/02/17 12:59 Last Admin: 12/09/16 13:04 Dose: Not Given Ciprofloxacin (Cipro) 500 mg PO BID [facility] Stop: 12/13/16 17:01 Last Admin: 12/09/16 08:05 Dose: Not Given Donepezil HCl (Aricept) 10 mg PO HS [facility] Stop: 02/02/17 20:59 Last Admin: 12/08/16 21:12 Dose: Not Given Enalapril Maleate (Vasotec) 10 mg PO DAILY [facility] Stop: 02/03/17 08:59 Last Admin: 12/09/16 08:06 Dose: Not Given Gabapentin (Neurontin) 100 mg PO BID [facility] Stop: 02/02/17 16:59 Last Admin: 12/09/16 08:04 Dose: Not Given Haloperidol (Haldol) 2 mg PO BID [facility]ILY PRN Reason: Protocol Stop: 02/04/17 16:59 Last Admin: 12/09/16 08:05 Dose: Not Given Insulin Aspart (Novolog) 0 units SUBQ ACHS EMILY PRN Reason: Protocol Stop: 02/02/17 11:29 Last Admin: 12/09/16 11:26 Dose: Not Given Lactobacillus Rhamnosus (Culturelle) 1 each PO DAILY [facility] Stop: 02/05/17 16:59 Last Admin: 12/09/16 08:06 Dose: Not Given Lorazepam (Ativan) 0.5 mg PO Q6H PRN; Protocol PRN Reason: Anxiety/Agitation Stop: 02/01/17 22:03 Magnesium Hydroxide (Milk Of Magnesia) 30 ml PO DAILY PRN PRN Reason: Constipation Stop: 02/02/17 10:37 Memantine (Namenda) 10 mg PO BID [facility] Stop: 02/02/17 16:59 Last Admin: 12/09/16 08:05 Dose: Not Given Miscellaneous (Probiotic Screen) 1 ea MC PRN PRN PRN Reason: PROTOCOL Stop: 02/05/17 15:49 Multivitamins/Vitamin C (Theragran) 1 tab PO DAILY [facility] Stop: 02/03/17 08:59 Last Admin: 12/09/16 08:06 Dose: Not Given Oxybutynin Chloride (Ditropan Xl) 5 mg PO HS [facility] Stop: 02/02/17 20:59 Last Admin: 12/08/16 21:12 Dose: Not Given Phenytoin (Dilantin) 300 mg PO HS [facility] Stop: 02/02/17 20:59 Last Admin: 12/08/16 21:12 Dose: Not Given Pioglitazone HCl (Actos) 30 mg PO DAILY [facility] Stop: 02/03/17 08:59 Last Admin: 12/09/16 08:06 Dose: Not Given Zolpidem Tartrate (Ambien) 5 mg PO HS PRN PRN Reason: Insomnia Stop: 02/01/17 22:03 General: alert HEENT: NC/AT, PERRLA Neck: Supple, No JVD Lungs: CTAB Cardiovascular: RRR, Normal S1, Normal S2, without murmur Abdomen: soft, non-tender, non-distended, positive bowel sound Extremities: excoriation Neurological: alert - Procedures Procedures: Procedures Procedure Code Date OTHER GROUP THERAPY 94.44 08/26/14 Internal Medicine Assmt/Plan - Assessment Assessment: Diabetes Mellitus. Parkinson's disease. Detrusor instability Hypertension. DJD Seizure disorder. Alzheimer's dementia. Psychiatric disorder. Fall risk. - Plan Plan: seizure precautions monitor glucose fall precautions continue current plan of care Nutritional Asmnt/Malnutr-PDOC - Dietary Evaluation Malnutrition Findings (Please click <Entered> for more info): Nutritional Asmnt/Malnutrition Start: 12/04/16 10: 19 Text: Status: Complete Freq: Document 12/04/16 10:19 KEM (Rec: 12/04/16 10:26 KEM TERRENCE [email or web address]) Nutritional Asmnt/Malnutrition Patient General Information Diagnosis Not Eating (RFV) Pertinent Medical Hx/Surgical Hx HTN, DM, asthma/COPD, PUD/GERD , dementia, parkinson's disease, edema, psychosis Reported poor PO intake x 5 days Subjective Information Pt sitting up watching television at time of visit, Pt reports "great" appetite and that she eats" everything. " Current Diet Order/ Nutrition Support Mechanical soft low fat, low cholesterol, MOISES, CCHO Patient / S.O Not Indicated Pertinent Medications Ambien, ativan Pertinent Labs Na 138, K 4.0, Cl 106, CO2 28. 4, BUN 13, Cr 0.6, Ca 9.3, glucsoe 129 Nutritional Hx/Data Height 5 ft 6 in Height (Calculated Centimeters) 167.6 Current Weight (lbs) 182 lb Weight (Calculated Kilograms) 82.6 Weight (Calculated Grams) 83176.8 Recent Weight Change No Weight Status Approriate GI Symptoms GI Symptoms None Difficult in: Chewing Food Allergies Yes Cultural/Ethnic/Advent Belief Unknown Usual diet at home unknown Skin Integrity/Comment: vicente score 20 Estimated Nutritional Goals BEE in Kcals: Using Current wt Calories/Kcals/Kg 25-30kcals/kg Kcals Calculated 2074-2489kcals/day Protein: Using Current wt Protein g/k-1.2g/kg Protein Calculated 83-100g/day Fluid: ml 2074-249ml/day (1ml/kcal) Nutritional Problem 1. Problem Problem Inadequate oral intake related to Etiology cognition vs appetite as evidenced by Signs/Symptoms: admitted for Poor PO intake. Intervention/Recommendation Comments Recommend continuing mechanical soft low fat low cholesterol, CCHO, MOISES diet Recommend if medically appropriate appetite stimulant . Expected Outcomes/Goals Expected Outcomes/Goals PO intake >75% of meals.
[2016-12-09] MEDS: Oxybutynin Chloride 5 mg ER Tab PO SCH (21:05)
--- NOTE | 2016-12-09 22:36 | Progress Notes ---
DATE: 12/09/2016 Case was discussed with staff of the patient. The patient continues to be paranoid, stays in her room. Continues to be unpredictable, impulsive, needing redirection. I will try again today to talk to her about why she is not taking her medications and her answer for me was just "go, go". She is demented, confused, unable to make safe plan for self-care. She reports she did not need any medications. She is not supposed to be on any medication. I think throughout this admission she needs it. Discussed side effects again and so far we were waiting on a Riese hearing, which they scheduled few days ago. We will continue the patient in group therapy, milieu therapy, and adjust medications as needed. JOB# [id number]
[2016-12-10] MEDS: INSULIN ASPART, RECOMBINANT 100 UNITS/ML SUBQ SCH ×4 (06:45→20:04)
[2016-12-10] MEDS: Lactobacillus Rhamnosus 10 Billion CFU Capsule PO SCH (09:08)
[2016-12-10] MEDS: Multivitamin Tab PO SCH (09:09)
[2016-12-10] MEDS: Haloperidol Lactate 5 mg/mL 1mL Vial IM PRN (18:27)
--- NOTE | 2016-12-10 19:47 | Internal Medicine Prog Note ---
Internal Medicine Subjective - Subjective Service Date: 12/10/16 Patient is:: awake, verbal Per staff patient has:: no adverse event, tolerating meds Internal Medicine Objective - Results Result Diagrams: 12/07/16 06:50 12/07/16 06:50 Recent Labs: Laboratory Last Values WBC 7.9 Th/cmm (4.8-10.8) D 12/07/16 06:50 RBC 4.43 Mil/cmm (3.80-5.20) 12/07/16 06:50 Hgb 13.9 gm/dL (12-16) 12/07/16 06:50 Hct 41.1 % (41.0-60) 12/07/16 06:50 MCV 92.8 fl (81-100) 12/07/16 06:50 MCH 31.4 pg (27.0-31.0) H 12/07/16 06:50 MCHC Differential 33.9 pg (28.0-36.0) 12/07/16 06:50 RDW 12.3 % (11.5-20.0) 12/07/16 06:50 Plt Count 158 Th/cmm (150-400) 12/07/16 06:50 MPV 8.7 fl 12/07/16 06:50 Neutrophils % 74.9 % (40.0-80.0) 12/07/16 06:50 Lymphocytes % 15.8 % (20.0-50.0) L 12/07/16 06:50 Monocytes % 7.9 % (2.0-10.0) 12/07/16 06:50 Eosinophils % 0.8 % (0.0-5.0) 12/07/16 06:50 Basophils % 0.6 % (0.0-2.0) 12/07/16 06:50 Sodium 138 mEq/L (136-145) 12/07/16 06:50 Potassium 3.8 mEq/L (3.5-5.1) 12/07/16 06:50 Chloride 106 mEq/L (98-107) 12/07/16 06:50 Carbon Dioxide 27.5 mEq/L (21.0-31.0) 12/07/16 06:50 Anion Gap 8.3 (7.0-16.0) 12/07/16 06:50 BUN 9 mg/dL (7-25) 12/07/16 06:50 Creatinine 0.4 mg/dL (0.6-1.2) L 12/07/16 06:50 Est GFR ( Amer) TNP 12/07/16 06:50 Est GFR (Non-Af Amer) TNP 12/07/16 06:50 BUN/Creatinine Ratio 22.5 12/07/16 06:50 Glucose 122 mg/dL (70-105) H 12/07/16 06:50 POC Glucose 96 MG/DL (70 - 105) 12/10/16 17:37 Calcium 9.0 mg/dL (8.6-10.3) 12/07/16 06:50 Total Bilirubin 0.5 mg/dL (0.3-1.0) 12/07/16 06:50 AST 11 U/L (13-39) L 12/07/16 06:50 ALT 6 U/L (7-52) L 12/07/16 06:50 Alkaline Phosphatase 86 U/L (34-104) 12/07/16 06:50 Total Protein 6.9 gm/dL (6.0-8.3) 12/07/16 06:50 Albumin 3.8 gm/dL (3.7-5.3) 12/07/16 06:50 Globulin 3.1 gm/dL 12/07/16 06:50 Albumin/Globulin Ratio 1.2 (1.0-1.8) 12/07/16 06:50 Urine Source RANDOM 12/03/16 15:10 Urine Color YELLOW 12/03/16 15:10 Urine Clarity CLEAR (CLEAR) 12/03/16 15:10 Urine pH 6.5 (4.6 - 8.0) 12/03/16 15:10 Ur Specific [place] 1.010 (1.005-1.030) 12/03/16 15:10 Urine Protein NEGATIVE mg/dL (NEGATIVE) 12/03/16 15:10 Urine Glucose (UA) NEGATIVE mg/dL (NEGATIVE) 12/03/16 15:10 Urine Ketones NEGATIVE mg/dL (NEGATIVE) 12/03/16 15:10 Urine Blood NEGATIVE (NEGATIVE) 12/03/16 15:10 Urine Nitrate NEGATIVE (NEGATIVE) 12/03/16 15:10 Urine Bilirubin NEGATIVE (NEGATIVE) 12/03/16 15:10 Urine Urobilinogen 0.2 E.U./dL (0.2 - 1.0) 12/03/16 15:10 Ur Leukocyte Esterase TRACE (NEGATIVE) H 12/03/16 15:10 Urine RBC NONE SEEN /hpf (0-5) 12/03/16 15:10 Urine WBC 2-5 /hpf (0-5) 12/03/16 15:10 Ur Epithelial Cells FEW /lpf (FEW) 12/03/16 15:10 Urine Bacteria FEW /hpf (NONE SEEN) 12/03/16 15:10 - Physical Exam Vitals and I&O: Vital Signs Temp 97.8 F 12/09/16 14:00 Pulse 87 12/10/16 09:10 Resp 18 12/09/16 14:00 BP 136/70 12/10/16 09:10 Pulse Ox 97 12/09/16 14:00 Active Medications: Current Medications Acetaminophen (Tylenol) 650 mg PO Q4HR PRN PRN Reason: Pain Stop: 02/02/17 10:37 Acetaminophen (Tylenol Extra Strength) 500 mg PO Q6H PRN PRN Reason: Fever > 101 Stop: 02/04/17 20:06 Al Hydrox/Mg Hydrox/Simethicone (Maalox) 30 ml PO Q4HR PRN PRN Reason: GI DISTRESS Stop: 02/02/17 10:37 Bisacodyl (Dulcolax 10 Mg Supp) 10 mg RC DAILY PRN PRN Reason: Constipation Stop: 02/02/17 10:37 Carbidopa/Levodopa (Sinemet 25 Mg-250 Mg) 1 tab PO QID [facility] Stop: 02/02/17 12:59 Last Admin: 12/10/16 18:29 Dose: Not Given Ciprofloxacin (Cipro) 500 mg PO BID [facility] Stop: 12/13/16 17:01 Last Admin: 12/10/16 18:29 Dose: Not Given Donepezil HCl (Aricept) 10 mg PO HS [facility] Stop: 02/02/17 20:59 Last Admin: 12/09/16 21:06 Dose: Not Given Enalapril Maleate (Vasotec) 10 mg PO DAILY [facility] Stop: 02/03/17 08:59 Last Admin: 12/10/16 09:10 Dose: Not Given Gabapentin (Neurontin) 100 mg PO BID [facility] Stop: 02/02/17 16:59 Last Admin: 12/10/16 18:29 Dose: Not Given Haloperidol (Haldol) 2 mg PO BID [facility] PRN Reason: Protocol Stop: 02/04/17 16:59 Last Admin: 12/10/16 18:29 Dose: Not Given Haloperidol Lactate (Haldol) 2 mg IM BID PRN PRN Reason: IF PT REFUSES PO HALDOL Stop: 02/08/17 12:13 Last Admin: 12/10/16 18:27 Dose: 2 mg Insulin Aspart (Novolog) 0 units SUBQ ACHS [facility]ILY PRN Reason: Protocol Stop: 02/02/17 11:29 Last Admin: 12/10/16 18:02 Dose: Not Given Lactobacillus Rhamnosus (Culturelle) 1 each PO DAILY [facility] Stop: 02/05/17 16:59 Last Admin: 12/10/16 09:08 Dose: Not Given Lorazepam (Ativan) 0.5 mg PO Q6H PRN; Protocol PRN Reason: Anxiety/Agitation Stop: 02/01/17 22:03 Magnesium Hydroxide (Milk Of Magnesia) 30 ml PO DAILY PRN PRN Reason: Constipation Stop: 02/02/17 10:37 Memantine (Namenda) 10 mg PO BID [facility] Stop: 02/02/17 16:59 Last Admin: 12/10/16 18:29 Dose: Not Given Miscellaneous (Probiotic Screen) 1 ea MC PRN PRN PRN Reason: PROTOCOL Stop: 02/05/17 15:49 Multivitamins/Vitamin C (Theragran) 1 tab PO DAILY [facility] Stop: 02/03/17 08:59 Last Admin: 12/10/16 09:09 Dose: Not Given Oxybutynin Chloride (Ditropan Xl) 5 mg PO HS [facility] Stop: 02/02/17 20:59 Last Admin: 12/09/16 21:05 Dose: Not Given Phenytoin (Dilantin) 300 mg PO HS [facility] Stop: 02/02/17 20:59 Last Admin: 12/09/16 21:05 Dose: Not Given Pioglitazone HCl (Actos) 30 mg PO DAILY [facility] Stop: 02/03/17 08:59 Last Admin: 12/10/16 09:09 Dose: Not Given Zolpidem Tartrate (Ambien) 5 mg PO HS PRN PRN Reason: Insomnia Stop: 02/01/17 22:03 General: alert HEENT: NC/AT, PERRLA Neck: Supple, No JVD Lungs: CTAB Cardiovascular: RRR, Normal S1, Normal S2, without murmur Abdomen: soft, non-tender, non-distended, positive bowel sound Extremities: excoriation Neurological: alert - Procedures Procedures: Procedures Procedure Code Date OTHER GROUP THERAPY 94.44 08/26/14 Internal Medicine Assmt/Plan - Assessment Assessment: Diabetes Mellitus. Parkinson's disease. Detrusor instability Hypertension. DJD Seizure disorder. Alzheimer's dementia. Psychiatric disorder. Fall risk. - Plan Plan: seizure precautions monitor glucose fall precautions continue current plan of care Nutritional Asmnt/Malnutr-PDOC - Dietary Evaluation Malnutrition Findings (Please click <Entered> for more info): Nutritional Asmnt/Malnutrition Start: 12/04/16 10: 19 Text: Status: Complete Freq: Document 12/04/16 10:19 KEM (Rec: 12/04/16 10:26 KEM [email or web address] [email or web address]) Nutritional Asmnt/Malnutrition Patient General Information Diagnosis Not Eating (RFV) Pertinent Medical Hx/Surgical Hx HTN, DM, asthma/COPD, PUD/GERD , dementia, parkinson's disease, edema, psychosis Reported poor PO intake x 5 days Subjective Information Pt sitting up watching television at time of visit, Pt reports "great" appetite and that she eats" everything. " Current Diet Order/ Nutrition Support Mechanical soft low fat, low cholesterol, MOISES, CCHO Patient / S.O Not Indicated Pertinent Medications Ambien, ativan Pertinent Labs Na 138, K 4.0, Cl 106, CO2 28. 4, BUN 13, Cr 0.6, Ca 9.3, glucsoe 129 Nutritional Hx/Data Height 5 ft 6 in Height (Calculated Centimeters) 167.6 Current Weight (lbs) 182 lb Weight (Calculated Kilograms) 82.6 Weight (Calculated Grams) 61051.8 Recent Weight Change No Weight Status Approriate GI Symptoms GI Symptoms None Difficult in: Chewing Food Allergies Yes Cultural/Ethnic/Gnosticism Belief Unknown Usual diet at home unknown Skin Integrity/Comment: vicente score 20 Estimated Nutritional Goals BEE in Kcals: Using Current wt Calories/Kcals/Kg 25-30kcals/kg Kcals Calculated 5-249kcals/day Protein: Using Current wt Protein g/k-1.2g/kg Protein Calculated 83-100g/day Fluid: ml 2075-2490ml/day (1ml/kcal) Nutritional Problem 1. Problem Problem Inadequate oral intake related to Etiology cognition vs appetite as evidenced by Signs/Symptoms: admitted for Poor PO intake. Intervention/Recommendation Comments Recommend continuing mechanical soft low fat low cholesterol, CCHO, MOISES diet Recommend if medically appropriate appetite stimulant . Expected Outcomes/Goals Expected Outcomes/Goals PO intake >75% of meals.
[2016-12-10] MEDS: Oxybutynin Chloride 5 mg ER Tab PO SCH (20:02)
--- NOTE | 2016-12-11 01:36 | Progress Notes ---
DATE: 12/10/2016 Case was discussed with staff of the patient, reviewed records. The patient continues to be unpredictable, impulsive, needing redirection. We will have ____ today. The patient is refusing to go. Continues to have poor insight, not taking any medication including blood pressure medications. I will continue to work with the patient in group therapy, milieu therapy, and adjust the medication as needed. JOB# [id number]
[2016-12-11] MEDS: INSULIN ASPART, RECOMBINANT 100 UNITS/ML SUBQ SCH ×4 (06:41→21:20)
[2016-12-11] MEDS: Lactobacillus Rhamnosus 10 Billion CFU Capsule PO SCH (08:02)
[2016-12-11] MEDS: Multivitamin Tab PO SCH (08:02)
[2016-12-11] MEDS: Haloperidol Lactate 5 mg/mL 1mL Vial IM PRN ×2 (08:31→17:07)
--- NOTE | 2016-12-11 10:17 | Progress Notes ---
DATE: SUBJECTIVE: The patient seen, chart reviewed, discussed with staff. The patient is currently in the hospital, refusing medications, aggressive behaviors, psychotic. The patient was Riesed for refusing her medications. Intramuscular medications are being given. She is refusing to speak with me. Still remains aggressive, still psychotic, not safe for discharge, refusing treatment. Medications were noted. ASSESSMENT: The patient remains symptomatic, refusing care, still not safe for a lower level of care given her behaviors. PLAN: We will continue to monitor. Given her ongoing symptoms, she is not safe for discharge at this time. [facility]# [id number]
--- NOTE | 2016-12-11 12:52 | Internal Medicine Prog Note ---
Internal Medicine Subjective - Subjective Patient seen and examined:: with staff, chart reviewed Patient is:: awake, verbal Per staff patient has:: no adverse event, no episodes of fall, poor oral intake , tolerating meds Internal Medicine Objective - Results Result Diagrams: 12/07/16 06:50 12/07/16 06:50 Recent Labs: Laboratory Last Values WBC 7.9 Th/cmm (4.8-10.8) D 12/07/16 06:50 RBC 4.43 Mil/cmm (3.80-5.20) 12/07/16 06:50 Hgb 13.9 gm/dL (12-16) 12/07/16 06:50 Hct 41.1 % (41.0-60) 12/07/16 06:50 MCV 92.8 fl (81-100) 12/07/16 06:50 MCH 31.4 pg (27.0-31.0) H 12/07/16 06:50 MCHC Differential 33.9 pg (28.0-36.0) 12/07/16 06:50 RDW 12.3 % (11.5-20.0) 12/07/16 06:50 Plt Count 158 Th/cmm (150-400) 12/07/16 06:50 MPV 8.7 fl 12/07/16 06:50 Neutrophils % 74.9 % (40.0-80.0) 12/07/16 06:50 Lymphocytes % 15.8 % (20.0-50.0) L 12/07/16 06:50 Monocytes % 7.9 % (2.0-10.0) 12/07/16 06:50 Eosinophils % 0.8 % (0.0-5.0) 12/07/16 06:50 Basophils % 0.6 % (0.0-2.0) 12/07/16 06:50 Sodium 138 mEq/L (136-145) 12/07/16 06:50 Potassium 3.8 mEq/L (3.5-5.1) 12/07/16 06:50 Chloride 106 mEq/L (98-107) 12/07/16 06:50 Carbon Dioxide 27.5 mEq/L (21.0-31.0) 12/07/16 06:50 Anion Gap 8.3 (7.0-16.0) 12/07/16 06:50 BUN 9 mg/dL (7-25) 12/07/16 06:50 Creatinine 0.4 mg/dL (0.6-1.2) L 12/07/16 06:50 Est GFR ( Amer) TNP 12/07/16 06:50 Est GFR (Non-Af Amer) TNP 12/07/16 06:50 BUN/Creatinine Ratio 22.5 12/07/16 06:50 Glucose 122 mg/dL (70-105) H 12/07/16 06:50 POC Glucose 83 MG/DL (70 - 105) 12/11/16 11:18 Calcium 9.0 mg/dL (8.6-10.3) 12/07/16 06:50 Total Bilirubin 0.5 mg/dL (0.3-1.0) 12/07/16 06:50 AST 11 U/L (13-39) L 12/07/16 06:50 ALT 6 U/L (7-52) L 12/07/16 06:50 Alkaline Phosphatase 86 U/L (34-104) 12/07/16 06:50 Total Protein 6.9 gm/dL (6.0-8.3) 12/07/16 06:50 Albumin 3.8 gm/dL (3.7-5.3) 12/07/16 06:50 Globulin 3.1 gm/dL 12/07/16 06:50 Albumin/Globulin Ratio 1.2 (1.0-1.8) 12/07/16 06:50 Urine Source RANDOM 12/03/16 15:10 Urine Color YELLOW 12/03/16 15:10 Urine Clarity CLEAR (CLEAR) 12/03/16 15:10 Urine pH 6.5 (4.6 - 8.0) 12/03/16 15:10 Ur Specific [place] 1.010 (1.005-1.030) 12/03/16 15:10 Urine Protein NEGATIVE mg/dL (NEGATIVE) 12/03/16 15:10 Urine Glucose (UA) NEGATIVE mg/dL (NEGATIVE) 12/03/16 15:10 Urine Ketones NEGATIVE mg/dL (NEGATIVE) 12/03/16 15:10 Urine Blood NEGATIVE (NEGATIVE) 12/03/16 15:10 Urine Nitrate NEGATIVE (NEGATIVE) 12/03/16 15:10 Urine Bilirubin NEGATIVE (NEGATIVE) 12/03/16 15:10 Urine Urobilinogen 0.2 E.U./dL (0.2 - 1.0) 12/03/16 15:10 Ur Leukocyte Esterase TRACE (NEGATIVE) H 12/03/16 15:10 Urine RBC NONE SEEN /hpf (0-5) 12/03/16 15:10 Urine WBC 2-5 /hpf (0-5) 12/03/16 15:10 Ur Epithelial Cells FEW /lpf (FEW) 12/03/16 15:10 Urine Bacteria FEW /hpf (NONE SEEN) 12/03/16 15:10 - Physical Exam Vitals and I&O: Vital Signs Temp 98.3 F 12/11/16 06:50 Pulse 89 12/11/16 06:50 Resp 20 12/11/16 08:00 BP 156/77 12/11/16 06:50 Pulse Ox 96 12/11/16 06:50 Active Medications: Current Medications Acetaminophen (Tylenol) 650 mg PO Q4HR PRN PRN Reason: Pain Stop: 02/02/17 10:37 Acetaminophen (Tylenol Extra Strength) 500 mg PO Q6H PRN PRN Reason: Fever > 101 Stop: 02/04/17 20:06 Al Hydrox/Mg Hydrox/Simethicone (Maalox) 30 ml PO Q4HR PRN PRN Reason: GI DISTRESS Stop: 02/02/17 10:37 Bisacodyl (Dulcolax 10 Mg Supp) 10 mg RC DAILY PRN PRN Reason: Constipation Stop: 02/02/17 10:37 Carbidopa/Levodopa (Sinemet 25 Mg-250 Mg) 1 tab PO QID [facility]ILY Stop: 02/02/17 12:59 Last Admin: 12/11/16 08:01 Dose: Not Given Donepezil HCl (Aricept) 10 mg PO HS [facility] Stop: 02/02/17 20:59 Last Admin: 12/10/16 20:02 Dose: Not Given Enalapril Maleate (Vasotec) 10 mg PO DAILY [facility] Stop: 02/03/17 08:59 Last Admin: 12/11/16 08:02 Dose: Not Given Gabapentin (Neurontin) 100 mg PO BID [facility] Stop: 02/02/17 16:59 Last Admin: 12/11/16 08:01 Dose: Not Given Haloperidol (Haldol) 2 mg PO BID [facility]ILY PRN Reason: Protocol Stop: 02/04/17 16:59 Last Admin: 12/11/16 08:02 Dose: Not Given Haloperidol Lactate (Haldol) 2 mg IM BID PRN PRN Reason: IF PT REFUSES PO HALDOL Stop: 02/08/17 12:13 Last Admin: 12/11/16 08:31 Dose: 2 mg Insulin Aspart (Novolog) 0 units SUBQ ACHS EMILY PRN Reason: Protocol Stop: 02/02/17 11:29 Last Admin: 12/11/16 11:27 Dose: Not Given Lactobacillus Rhamnosus (Culturelle) 1 each PO DAILY [facility] Stop: 02/05/17 16:59 Last Admin: 12/11/16 08:02 Dose: Not Given Lorazepam (Ativan) 0.5 mg PO Q6H PRN; Protocol PRN Reason: Anxiety/Agitation Stop: 02/01/17 22:03 Magnesium Hydroxide (Milk Of Magnesia) 30 ml PO DAILY PRN PRN Reason: Constipation Stop: 02/02/17 10:37 Memantine (Namenda) 10 mg PO BID [facility] Stop: 02/02/17 16:59 Last Admin: 12/11/16 08:01 Dose: Not Given Miscellaneous (Probiotic Screen) 1 ea MC PRN PRN PRN Reason: PROTOCOL Stop: 02/05/17 15:49 Multivitamins/Vitamin C (Theragran) 1 tab PO DAILY [facility] Stop: 02/03/17 08:59 Last Admin: 12/11/16 08:02 Dose: Not Given Oxybutynin Chloride (Ditropan Xl) 5 mg PO HS [facility] Stop: 02/02/17 20:59 Last Admin: 12/10/16 20:02 Dose: Not Given Phenytoin (Dilantin) 300 mg PO HS [facility] Stop: 02/02/17 20:59 Last Admin: 12/10/16 20:03 Dose: Not Given Pioglitazone HCl (Actos) 30 mg PO DAILY [facility] Stop: 02/03/17 08:59 Last Admin: 12/11/16 08:02 Dose: Not Given Zolpidem Tartrate (Ambien) 5 mg PO HS PRN PRN Reason: Insomnia Stop: 02/01/17 22:03 General: alert HEENT: NC/AT, PERRLA Neck: Supple, No JVD Lungs: CTAB Cardiovascular: RRR, Normal S1, Normal S2, without murmur Abdomen: soft, non-tender, non-distended, positive bowel sound Extremities: excoriation Neurological: alert - Procedures Procedures: Procedures Procedure Code Date OTHER GROUP THERAPY 94.44 08/26/14 Internal Medicine Assmt/Plan - Assessment Assessment: Diabetes Mellitus. Parkinson's disease. Detrusor instability Hypertension. DJD Seizure disorder. Alzheimer's dementia. Psychiatric disorder. Fall risk. - Plan Plan: - Plan Plan: seizure precautions monitor glucose fall precautions continue current plan of care Nutritional Asmnt/Malnutr-PDOC - Dietary Evaluation Malnutrition Findings (Please click <Entered> for more info): Nutritional Asmnt/Malnutrition Start: 12/04/16 10: 19 Text: Status: Complete Freq: Document 12/04/16 10:19 KEM (Rec: 12/04/16 10:26 KEM [email or web address]- [email or web address]) Nutritional Asmnt/Malnutrition Patient General Information Diagnosis Not Eating (RFV) Pertinent Medical Hx/Surgical Hx HTN, DM, asthma/COPD, PUD/GERD , dementia, parkinson's disease, edema, psychosis Reported poor PO intake x 5 days Subjective Information Pt sitting up watching television at time of visit, Pt reports "great" appetite and that she eats" everything. " Current Diet Order/ Nutrition Support Mechanical soft low fat, low cholesterol, MOISES, CCHO Patient / S.O Not Indicated Pertinent Medications Ambien, ativan Pertinent Labs Na 138, K 4.0, Cl 106, CO2 28. 4, BUN 13, Cr 0.6, Ca 9.3, glucsoe 129 Nutritional Hx/Data Height 1.68 m Height (Calculated Centimeters) 167.6 Current Weight (lbs) 82.554 kg Weight (Calculated Kilograms) 82.6 Weight (Calculated Grams) 02511.8 Recent Weight Change No Weight Status Approriate GI Symptoms GI Symptoms None Difficult in: Chewing Food Allergies Yes Cultural/Ethnic/[employer]ist Belief Unknown Usual diet at home unknown Skin Integrity/Comment: ivcente score 20 Estimated Nutritional Goals BEE in Kcals: Using Current wt Calories/Kcals/Kg 25-30kcals/kg Kcals Calculated 2075-2490kcals/day Protein: Using Current wt Protein g/k-1.2g/kg Protein Calculated 83-100g/day Fluid: ml 2075-2490ml/day (1ml/kcal) Nutritional Problem 1. Problem Problem Inadequate oral intake related to Etiology cognition vs appetite as evidenced by Signs/Symptoms: admitted for Poor PO intake. Intervention/Recommendation Comments Recommend continuing mechanical soft low fat low cholesterol, CCHO, MOISES diet Recommend if medically appropriate appetite stimulant . Expected Outcomes/Goals Expected Outcomes/Goals PO intake >75% of meals.
[2016-12-11] MEDS: Oxybutynin Chloride 5 mg ER Tab PO SCH (21:25)
[2016-12-12] MEDS: INSULIN ASPART, RECOMBINANT 100 UNITS/ML SUBQ SCH ×4 (06:37→21:47)
[2016-12-12] MEDS: Lactobacillus Rhamnosus 10 Billion CFU Capsule PO SCH (10:00)
[2016-12-12] MEDS: Multivitamin Tab PO SCH (10:00)
[2016-12-12] MEDS: Haloperidol Lactate 5 mg/mL 1mL Vial IM PRN (10:05)
--- NOTE | 2016-12-12 11:33 | Internal Medicine Prog Note ---
Internal Medicine Subjective - Subjective Patient seen and examined:: with staff, chart reviewed Patient is:: awake, verbal Per staff patient has:: no adverse event, no episodes of fall, poor oral intake , tolerating meds Internal Medicine Objective - Results Result Diagrams: 12/07/16 06:50 12/07/16 06:50 Recent Labs: Laboratory Last Values WBC 7.9 Th/cmm (4.8-10.8) D 12/07/16 06:50 RBC 4.43 Mil/cmm (3.80-5.20) 12/07/16 06:50 Hgb 13.9 gm/dL (12-16) 12/07/16 06:50 Hct 41.1 % (41.0-60) 12/07/16 06:50 MCV 92.8 fl (81-100) 12/07/16 06:50 MCH 31.4 pg (27.0-31.0) H 12/07/16 06:50 MCHC Differential 33.9 pg (28.0-36.0) 12/07/16 06:50 RDW 12.3 % (11.5-20.0) 12/07/16 06:50 Plt Count 158 Th/cmm (150-400) 12/07/16 06:50 MPV 8.7 fl 12/07/16 06:50 Neutrophils % 74.9 % (40.0-80.0) 12/07/16 06:50 Lymphocytes % 15.8 % (20.0-50.0) L 12/07/16 06:50 Monocytes % 7.9 % (2.0-10.0) 12/07/16 06:50 Eosinophils % 0.8 % (0.0-5.0) 12/07/16 06:50 Basophils % 0.6 % (0.0-2.0) 12/07/16 06:50 Sodium 138 mEq/L (136-145) 12/07/16 06:50 Potassium 3.8 mEq/L (3.5-5.1) 12/07/16 06:50 Chloride 106 mEq/L (98-107) 12/07/16 06:50 Carbon Dioxide 27.5 mEq/L (21.0-31.0) 12/07/16 06:50 Anion Gap 8.3 (7.0-16.0) 12/07/16 06:50 BUN 9 mg/dL (7-25) 12/07/16 06:50 Creatinine 0.4 mg/dL (0.6-1.2) L 12/07/16 06:50 Est GFR ( Amer) TNP 12/07/16 06:50 Est GFR (Non-Af Amer) TNP 12/07/16 06:50 BUN/Creatinine Ratio 22.5 12/07/16 06:50 Glucose 122 mg/dL (70-105) H 12/07/16 06:50 POC Glucose 116 MG/DL (70 - 105) H 12/12/16 06:32 Calcium 9.0 mg/dL (8.6-10.3) 12/07/16 06:50 Total Bilirubin 0.5 mg/dL (0.3-1.0) 12/07/16 06:50 AST 11 U/L (13-39) L 12/07/16 06:50 ALT 6 U/L (7-52) L 12/07/16 06:50 Alkaline Phosphatase 86 U/L (34-104) 12/07/16 06:50 Total Protein 6.9 gm/dL (6.0-8.3) 12/07/16 06:50 Albumin 3.8 gm/dL (3.7-5.3) 12/07/16 06:50 Globulin 3.1 gm/dL 12/07/16 06:50 Albumin/Globulin Ratio 1.2 (1.0-1.8) 12/07/16 06:50 Urine Source RANDOM 12/03/16 15:10 Urine Color YELLOW 12/03/16 15:10 Urine Clarity CLEAR (CLEAR) 12/03/16 15:10 Urine pH 6.5 (4.6 - 8.0) 12/03/16 15:10 Ur Specific [place] 1.010 (1.005-1.030) 12/03/16 15:10 Urine Protein NEGATIVE mg/dL (NEGATIVE) 12/03/16 15:10 Urine Glucose (UA) NEGATIVE mg/dL (NEGATIVE) 12/03/16 15:10 Urine Ketones NEGATIVE mg/dL (NEGATIVE) 12/03/16 15:10 Urine Blood NEGATIVE (NEGATIVE) 12/03/16 15:10 Urine Nitrate NEGATIVE (NEGATIVE) 12/03/16 15:10 Urine Bilirubin NEGATIVE (NEGATIVE) 12/03/16 15:10 Urine Urobilinogen 0.2 E.U./dL (0.2 - 1.0) 12/03/16 15:10 Ur Leukocyte Esterase TRACE (NEGATIVE) H 12/03/16 15:10 Urine RBC NONE SEEN /hpf (0-5) 12/03/16 15:10 Urine WBC 2-5 /hpf (0-5) 12/03/16 15:10 Ur Epithelial Cells FEW /lpf (FEW) 12/03/16 15:10 Urine Bacteria FEW /hpf (NONE SEEN) 12/03/16 15:10 - Physical Exam Vitals and I&O: Vital Signs Temp 98.1 F 12/12/16 06:07 Pulse 86 12/12/16 10:00 Resp 18 12/12/16 06:07 BP 142/72 12/12/16 10:00 Pulse Ox 96 12/12/16 06:07 Active Medications: Current Medications Acetaminophen (Tylenol) 650 mg PO Q4HR PRN PRN Reason: Pain Stop: 02/02/17 10:37 Acetaminophen (Tylenol Extra Strength) 500 mg PO Q6H PRN PRN Reason: Fever > 101 Stop: 02/04/17 20:06 Al Hydrox/Mg Hydrox/Simethicone (Maalox) 30 ml PO Q4HR PRN PRN Reason: GI DISTRESS Stop: 02/02/17 10:37 Bisacodyl (Dulcolax 10 Mg Supp) 10 mg RC DAILY PRN PRN Reason: Constipation Stop: 02/02/17 10:37 Carbidopa/Levodopa (Sinemet 25 Mg-250 Mg) 1 tab PO QID EMILY Stop: 02/02/17 12:59 Last Admin: 12/12/16 10:00 Dose: Not Given Donepezil HCl (Aricept) 10 mg PO HS EMILY Stop: 02/02/17 20:59 Last Admin: 12/11/16 21:24 Dose: Not Given Enalapril Maleate (Vasotec) 10 mg PO DAILY EMILY Stop: 02/03/17 08:59 Last Admin: 12/12/16 10:00 Dose: Not Given Gabapentin (Neurontin) 100 mg PO BID EMILY Stop: 02/02/17 16:59 Last Admin: 12/12/16 10:00 Dose: Not Given Haloperidol (Haldol) 2 mg PO BID EMILY PRN Reason: Protocol Stop: 02/04/17 16:59 Last Admin: 12/12/16 10:21 Dose: Not Given Haloperidol Lactate (Haldol) 2 mg IM BID PRN PRN Reason: IF PT REFUSES PO HALDOL Stop: 02/08/17 12:13 Last Admin: 12/12/16 10:05 Dose: 2 mg Insulin Aspart (Novolog) 0 units SUBQ ACHS EMILY PRN Reason: Protocol Stop: 02/02/17 11:29 Last Admin: 12/12/16 06:37 Dose: Not Given Lactobacillus Rhamnosus (Culturelle) 1 each PO DAILY EMILY Stop: 02/05/17 16:59 Last Admin: 12/12/16 10:00 Dose: Not Given Lorazepam (Ativan) 0.5 mg PO Q6H PRN; Protocol PRN Reason: Anxiety/Agitation Stop: 02/01/17 22:03 Magnesium Hydroxide (Milk Of Magnesia) 30 ml PO DAILY PRN PRN Reason: Constipation Stop: 02/02/17 10:37 Memantine (Namenda) 10 mg PO BID EMILY Stop: 02/02/17 16:59 Last Admin: 12/12/16 10:00 Dose: Not Given Miscellaneous (Probiotic Screen) 1 ea MC PRN PRN PRN Reason: PROTOCOL Stop: 02/05/17 15:49 Multivitamins/Vitamin C (Theragran) 1 tab PO DAILY EMILY Stop: 02/03/17 08:59 Last Admin: 12/12/16 10:00 Dose: Not Given Oxybutynin Chloride (Ditropan Xl) 5 mg PO HS EMILY Stop: 02/02/17 20:59 Last Admin: 12/11/16 21:25 Dose: Not Given Phenytoin (Dilantin) 300 mg PO HS EMILY Stop: 02/02/17 20:59 Last Admin: 12/11/16 21:20 Dose: Not Given Pioglitazone HCl (Actos) 30 mg PO DAILY EMILY Stop: 02/03/17 08:59 Last Admin: 12/12/16 10:00 Dose: Not Given Zolpidem Tartrate (Ambien) 5 mg PO HS PRN PRN Reason: Insomnia Stop: 02/01/17 22:03 General: alert HEENT: NC/AT, PERRLA Neck: Supple, No JVD Lungs: CTAB Cardiovascular: RRR, Normal S1, Normal S2, without murmur Abdomen: soft, non-tender, non-distended, positive bowel sound Extremities: excoriation Neurological: alert - Procedures Procedures: Procedures Procedure Code Date OTHER GROUP THERAPY 94.44 08/26/14 Internal Medicine Assmt/Plan - Assessment Assessment: Diabetes Mellitus. Parkinson's disease. Detrusor instability Hypertension. DJD Seizure disorder. Alzheimer's dementia. Psychiatric disorder. Fall risk. - Plan Plan: - Plan Plan: seizure precautions monitor glucose fall precautions continue current plan of care Nutritional Asmnt/Malnutr-PDOC - Dietary Evaluation Malnutrition Findings (Please click <Entered> for more info): Nutritional Asmnt/Malnutrition Start: 12/04/16 10: 19 Text: Status: Complete Freq: Document 12/04/16 10:19 KEM (Rec: 12/04/16 10:26 KEM TERRENCE- [email or web address]) Nutritional Asmnt/Malnutrition Patient General Information Diagnosis Not Eating (RFV) Pertinent Medical Hx/Surgical Hx HTN, DM, asthma/COPD, PUD/GERD , dementia, parkinson's disease, edema, psychosis Reported poor PO intake x 5 days Subjective Information Pt sitting up watching television at time of visit, Pt reports "great" appetite and that she eats" everything. " Current Diet Order/ Nutrition Support Mechanical soft low fat, low cholesterol, MOISES, CCHO Patient / S.O Not Indicated Pertinent Medications Ambien, ativan Pertinent Labs Na 138, K 4.0, Cl 106, CO2 28. 4, BUN 13, Cr 0.6, Ca 9.3, glucsoe 129 Nutritional Hx/Data Height 1.68 m Height (Calculated Centimeters) 167.6 Current Weight (lbs) 82.554 kg Weight (Calculated Kilograms) 82.6 Weight (Calculated Grams) 65782.8 Recent Weight Change No Weight Status Approriate GI Symptoms GI Symptoms None Difficult in: Chewing Food Allergies Yes Cultural/Ethnic/Judaism Belief Unknown Usual diet at home unknown Skin Integrity/Comment: vicente score 20 Estimated Nutritional Goals BEE in Kcals: Using Current wt Calories/Kcals/Kg 25-30kcals/kg Kcals Calculated 2075-2490kcals/day Protein: Using Current wt Protein g/k-1.2g/kg Protein Calculated 83-100g/day Fluid: ml 2075-2490ml/day (1ml/kcal) Nutritional Problem 1. Problem Problem Inadequate oral intake related to Etiology cognition vs appetite as evidenced by Signs/Symptoms: admitted for Poor PO intake. Intervention/Recommendation Comments Recommend continuing mechanical soft low fat low cholesterol, CCHO, MOISES diet Recommend if medically appropriate appetite stimulant . Expected Outcomes/Goals Expected Outcomes/Goals PO intake >75% of meals.
--- NOTE | 2016-12-12 11:52 | Progress Notes ---
DATE: SUBJECTIVE: The patient seen, chart reviewed, discussed with staff. The patient is currently in the hospital, destructive behaviors, refusing to take her p.o. medications, aggressive behaviors, psychosis, unruly, difficult to manage at a lower level of care. It seems that she has been calming down. Staff noting she is more cooperative. Staff noting that she is denying any auditory or visual hallucinations. On [id number], the patient seems to be improving. She is now taking medications and this seems to be helping her symptoms at this time. Currently, on Haldol low dose and Aricept. ASSESSMENT: The patient seems to be improving, calmer. However, she does remain guarded, but engaged on exam. Denying any overt psychotic symptoms, still with episodes of med refusals, but it seems that she is under a [place] petition. PLAN: We will continue to monitor. The patient is still symptomatic, still concerns about her behaviors, still concerns about compliance with medications. Medications were reviewed, currently on Haldol. JOB# [id number]
[2016-12-12] MEDS: Oxybutynin Chloride 5 mg ER Tab PO SCH (21:50)
[2016-12-13] MEDS: INSULIN ASPART, RECOMBINANT 100 UNITS/ML SUBQ SCH ×4 (06:49→21:17)
[2016-12-13] MEDS: Multivitamin Tab PO SCH (08:48)
[2016-12-13] MEDS: Lactobacillus Rhamnosus 10 Billion CFU Capsule PO SCH (08:48)
--- NOTE | 2016-12-13 09:43 | General Progress Note ---
Subjective - Review of Systems Subjective: Patient is seen and examined.Patient complained of cough. Chart reviewed. Objective - Results Result Diagrams: 12/07/16 06:50 12/07/16 06:50 Recent Labs: Laboratory Last Values WBC 7.9 Th/cmm (4.8-10.8) D 12/07/16 06:50 RBC 4.43 Mil/cmm (3.80-5.20) 12/07/16 06:50 Hgb 13.9 gm/dL (12-16) 12/07/16 06:50 Hct 41.1 % (41.0-60) 12/07/16 06:50 MCV 92.8 fl (81-100) 12/07/16 06:50 MCH 31.4 pg (27.0-31.0) H 12/07/16 06:50 MCHC Differential 33.9 pg (28.0-36.0) 12/07/16 06:50 RDW 12.3 % (11.5-20.0) 12/07/16 06:50 Plt Count 158 Th/cmm (150-400) 12/07/16 06:50 MPV 8.7 fl 12/07/16 06:50 Neutrophils % 74.9 % (40.0-80.0) 12/07/16 06:50 Lymphocytes % 15.8 % (20.0-50.0) L 12/07/16 06:50 Monocytes % 7.9 % (2.0-10.0) 12/07/16 06:50 Eosinophils % 0.8 % (0.0-5.0) 12/07/16 06:50 Basophils % 0.6 % (0.0-2.0) 12/07/16 06:50 Sodium 138 mEq/L (136-145) 12/07/16 06:50 Potassium 3.8 mEq/L (3.5-5.1) 12/07/16 06:50 Chloride 106 mEq/L (98-107) 12/07/16 06:50 Carbon Dioxide 27.5 mEq/L (21.0-31.0) 12/07/16 06:50 Anion Gap 8.3 (7.0-16.0) 12/07/16 06:50 BUN 9 mg/dL (7-25) 12/07/16 06:50 Creatinine 0.4 mg/dL (0.6-1.2) L 12/07/16 06:50 Est GFR ( Amer) TNP 12/07/16 06:50 Est GFR (Non-Af Amer) TNP 12/07/16 06:50 BUN/Creatinine Ratio 22.5 12/07/16 06:50 Glucose 122 mg/dL (70-105) H 12/07/16 06:50 POC Glucose 105 MG/DL (70 - 105) 12/13/16 06:21 Calcium 9.0 mg/dL (8.6-10.3) 12/07/16 06:50 Total Bilirubin 0.5 mg/dL (0.3-1.0) 12/07/16 06:50 AST 11 U/L (13-39) L 12/07/16 06:50 ALT 6 U/L (7-52) L 12/07/16 06:50 Alkaline Phosphatase 86 U/L (34-104) 12/07/16 06:50 Total Protein 6.9 gm/dL (6.0-8.3) 12/07/16 06:50 Albumin 3.8 gm/dL (3.7-5.3) 12/07/16 06:50 Globulin 3.1 gm/dL 12/07/16 06:50 Albumin/Globulin Ratio 1.2 (1.0-1.8) 12/07/16 06:50 Urine Source RANDOM 12/03/16 15:10 Urine Color YELLOW 12/03/16 15:10 Urine Clarity CLEAR (CLEAR) 12/03/16 15:10 Urine pH 6.5 (4.6 - 8.0) 12/03/16 15:10 Ur Specific [place] 1.010 (1.005-1.030) 12/03/16 15:10 Urine Protein NEGATIVE mg/dL (NEGATIVE) 12/03/16 15:10 Urine Glucose (UA) NEGATIVE mg/dL (NEGATIVE) 12/03/16 15:10 Urine Ketones NEGATIVE mg/dL (NEGATIVE) 12/03/16 15:10 Urine Blood NEGATIVE (NEGATIVE) 12/03/16 15:10 Urine Nitrate NEGATIVE (NEGATIVE) 12/03/16 15:10 Urine Bilirubin NEGATIVE (NEGATIVE) 12/03/16 15:10 Urine Urobilinogen 0.2 E.U./dL (0.2 - 1.0) 12/03/16 15:10 Ur Leukocyte Esterase TRACE (NEGATIVE) H 12/03/16 15:10 Urine RBC NONE SEEN /hpf (0-5) 12/03/16 15:10 Urine WBC 2-5 /hpf (0-5) 12/03/16 15:10 Ur Epithelial Cells FEW /lpf (FEW) 12/03/16 15:10 Urine Bacteria FEW /hpf (NONE SEEN) 12/03/16 15:10 - Physical Exam Vitals and I&O: Vital Signs Temp 97.2 F 12/13/16 06:07 Pulse 78 12/13/16 08:46 Resp 18 12/13/16 06:07 BP 141/67 12/13/16 08:46 Pulse Ox 96 12/13/16 06:07 Intake & Output 12/12/16 12/13/16 12/13/16 18:59 06:59 18:59 Intake Total 120 Balance 120 Intake: Oral 120 Other: # Voids 3 Active Medications: Current Medications Acetaminophen (Tylenol) 650 mg PO Q4HR PRN PRN Reason: Pain Stop: 02/02/17 10:37 Acetaminophen (Tylenol Extra Strength) 500 mg PO Q6H PRN PRN Reason: Fever > 101 Stop: 02/04/17 20:06 Al Hydrox/Mg Hydrox/Simethicone (Maalox) 30 ml PO Q4HR PRN PRN Reason: GI DISTRESS Stop: 02/02/17 10:37 Bisacodyl (Dulcolax 10 Mg Supp) 10 mg RC DAILY PRN PRN Reason: Constipation Stop: 02/02/17 10:37 Carbidopa/Levodopa (Sinemet 25 Mg-250 Mg) 1 tab PO QID EMILY Stop: 02/02/17 12:59 Last Admin: 12/13/16 08:47 Dose: 1 tab Donepezil HCl (Aricept) 10 mg PO HS EMILY Stop: 02/02/17 20:59 Last Admin: 12/12/16 21:49 Dose: Not Given Enalapril Maleate (Vasotec) 10 mg PO DAILY EMILY Stop: 02/03/17 08:59 Last Admin: 12/13/16 08:46 Dose: 10 mg Gabapentin (Neurontin) 100 mg PO BID EMILY Stop: 02/02/17 16:59 Last Admin: 12/13/16 08:47 Dose: 100 mg Haloperidol (Haldol) 2 mg PO BID EMILY PRN Reason: Protocol Stop: 02/04/17 16:59 Last Admin: 12/13/16 08:48 Dose: 2 mg Haloperidol Lactate (Haldol) 2 mg IM BID PRN PRN Reason: IF PT REFUSES PO HALDOL Stop: 02/08/17 12:13 Last Admin: 12/12/16 10:05 Dose: 2 mg Insulin Aspart (Novolog) 0 units SUBQ ACHS EMILY PRN Reason: Protocol Stop: 02/02/17 11:29 Last Admin: 12/13/16 06:49 Dose: Not Given Lactobacillus Rhamnosus (Culturelle) 1 each PO DAILY EMILY Stop: 02/05/17 16:59 Last Admin: 12/13/16 08:48 Dose: 1 each Lorazepam (Ativan) 0.5 mg PO Q6H PRN; Protocol PRN Reason: Anxiety/Agitation Stop: 02/01/17 22:03 Last Admin: 12/12/16 17:05 Dose: 0.5 mg Magnesium Hydroxide (Milk Of Magnesia) 30 ml PO DAILY PRN PRN Reason: Constipation Stop: 02/02/17 10:37 Memantine (Namenda) 10 mg PO BID EMILY Stop: 02/02/17 16:59 Last Admin: 12/13/16 08:48 Dose: 10 mg Miscellaneous (Probiotic Screen) 1 ea MC PRN PRN PRN Reason: PROTOCOL Stop: 02/05/17 15:49 Multivitamins/Vitamin C (Theragran) 1 tab PO DAILY EMILY Stop: 02/03/17 08:59 Last Admin: 12/13/16 08:48 Dose: 1 tab Oxybutynin Chloride (Ditropan Xl) 5 mg PO HS EMILY Stop: 02/02/17 20:59 Last Admin: 12/12/16 21:50 Dose: Not Given Phenytoin (Dilantin) 300 mg PO HS EMILY Stop: 02/02/17 20:59 Last Admin: 12/12/16 21:50 Dose: Not Given Pioglitazone HCl (Actos) 30 mg PO DAILY EMILY Stop: 02/03/17 08:59 Last Admin: 12/13/16 08:48 Dose: 30 mg Zolpidem Tartrate (Ambien) 5 mg PO HS PRN PRN Reason: Insomnia Stop: 02/01/17 22:03 General: Alert, Cooperative, No acute distress HEENT: Atraumatic, PERRLA, EOMI Neck: Supple, +2 carotid pulse wo bruit Cardiovascular: Regular rate, Normal S1, Normal S2 Lungs: Clear to auscultation Abdomen: Bowel sounds, Soft Extremities: Other (No edema,cynosis,clubbing. Diffuse DJD changes.) Psych/Mental Status: Mood NL - Procedures Procedures: Procedures Procedure Code Date OTHER GROUP THERAPY 94.44 08/26/14 Assessment/Plan - Problem List Patient Problems: All Active Problems Agitation (Acute) R45.1 - Assessment Assessment: Diabetes Mellitus. Parkinson's disease. Detrusor instability Hypertension. DJD Cough due to bronchitis R/O pneumonia. Seizure disorder. Alzheimer's dementia. Psychiatric disorder. Fall risk. - Plan Plan: Monitor glucose and vitals. Fall Precautions. Actos for DM. Chest X ray. Symptoms control. sinemet for parkinson's disease Ditropan for urinary incontinance. Seizure meds and precautions. Dementia meds. Psych follow up. Fall precautions. General nursing care. Continue current care. Discussed with staff Nutritional Asmnt/Malnutr-PDOC - Dietary Evaluation Malnutrition Findings (Please click <Entered> for more info): Nutritional Asmnt/Malnutrition Start: 12/04/16 10: 19 Text: Status: Complete Freq: Document 12/04/16 10:19 KEM (Rec: 12/04/16 10:26 KEM TERRENCE- FNS1) Nutritional Asmnt/Malnutrition Patient General Information Diagnosis Not Eating (RFV) Pertinent Medical Hx/Surgical Hx HTN, DM, asthma/COPD, PUD/GERD , dementia, parkinson's disease, edema, psychosis Reported poor PO intake x 5 days Subjective Information Pt sitting up watching television at time of visit, Pt reports "great" appetite and that she eats" everything. " Current Diet Order/ Nutrition Support Mechanical soft low fat, low cholesterol, MOISES, CCHO Patient / S.O Not Indicated Pertinent Medications Ambien, ativan Pertinent Labs Na 138, K 4.0, Cl 106, CO2 28. 4, BUN 13, Cr 0.6, Ca 9.3, glucsoe 129 Nutritional Hx/Data Height 1.68 m Height (Calculated Centimeters) 167.6 Current Weight (lbs) 82.554 kg Weight (Calculated Kilograms) 82.6 Weight (Calculated Grams) 98149.8 Recent Weight Change No Weight Status Approriate GI Symptoms GI Symptoms None Difficult in: Chewing Food Allergies Yes Cultural/Ethnic/U[place] Belief Unknown Usual diet at home unknown Skin Integrity/Comment: vicente score 20 Estimated Nutritional Goals BEE in Kcals: Using Current wt Calories/Kcals/Kg 25-30kcals/kg Kcals Calculated 2075-2490kcals/day Protein: Using Current wt Protein g/k-1.2g/kg Protein Calculated 83-100g/day Fluid: ml 2075-2490ml/day (1ml/kcal) Nutritional Problem 1. Problem Problem Inadequate oral intake related to Etiology cognition vs appetite as evidenced by Signs/Symptoms: admitted for Poor PO intake. Intervention/Recommendation Comments Recommend continuing mechanical soft low fat low cholesterol, CCHO, MOISES diet Recommend if medically appropriate appetite stimulant . Expected Outcomes/Goals Expected Outcomes/Goals PO intake >75% of meals.
[2016-12-13] MEDS: Guaifenesin DM 10 ML UDC PO PRN ×2 (10:51→17:14)
--- NOTE | 2016-12-13 12:00 | Diagnostic Imaging Report ---
CHEST X-RAY: AP view INDICATION: Nonproductive cough COMPARISON: 08/26/2014 FINDINGS: Chronic lung changes are seen with increased right basal linear markings. No focal consolidation or effusions. Mild cardiomegaly is noted with mild tortuosity of the aorta. Degenerative changes of the spine are noted. IMPRESSION: Chronic lung changes with right basal linear markings likely due to subsegmental atelectasis versus scarring. No focal consolidation is identified. Mild cardiomegaly.
[2016-12-13] MEDS: Oxybutynin Chloride 5 mg ER Tab PO SCH (21:16)
--- NOTE | 2016-12-14 01:38 | Progress Notes ---
DATE: 12/13/2016 Case was discussed with staff of the patient. The patient apparently had atelectasis. She has been refusing medication, had to be given injections. She consumes unpredictable, impulsive, paranoid, continues to have poor insight. She probably will be initiating Haldol Decanoate on him in the next day or two and so far no side effects from the medication, no sedation, no more nausea from the symptoms. We will continue the patient with group and milieu therapy. Adjust medications as needed. JOB# [id number]
[2016-12-14] MEDS: INSULIN ASPART, RECOMBINANT 100 UNITS/ML SUBQ SCH ×4 (06:42→20:42)
--- NOTE | 2016-12-14 08:55 | General Progress Note ---
Subjective - Review of Systems Subjective: Patient is seen and examined. No new complaints. Chart reviewed. Objective - Results Result Diagrams: 12/07/16 06:50 12/07/16 06:50 Recent Labs: Laboratory Last Values WBC 7.9 Th/cmm (4.8-10.8) D 12/07/16 06:50 RBC 4.43 Mil/cmm (3.80-5.20) 12/07/16 06:50 Hgb 13.9 gm/dL (12-16) 12/07/16 06:50 Hct 41.1 % (41.0-60) 12/07/16 06:50 MCV 92.8 fl (81-100) 12/07/16 06:50 MCH 31.4 pg (27.0-31.0) H 12/07/16 06:50 MCHC Differential 33.9 pg (28.0-36.0) 12/07/16 06:50 RDW 12.3 % (11.5-20.0) 12/07/16 06:50 Plt Count 158 Th/cmm (150-400) 12/07/16 06:50 MPV 8.7 fl 12/07/16 06:50 Neutrophils % 74.9 % (40.0-80.0) 12/07/16 06:50 Lymphocytes % 15.8 % (20.0-50.0) L 12/07/16 06:50 Monocytes % 7.9 % (2.0-10.0) 12/07/16 06:50 Eosinophils % 0.8 % (0.0-5.0) 12/07/16 06:50 Basophils % 0.6 % (0.0-2.0) 12/07/16 06:50 Sodium 138 mEq/L (136-145) 12/07/16 06:50 Potassium 3.8 mEq/L (3.5-5.1) 12/07/16 06:50 Chloride 106 mEq/L (98-107) 12/07/16 06:50 Carbon Dioxide 27.5 mEq/L (21.0-31.0) 12/07/16 06:50 Anion Gap 8.3 (7.0-16.0) 12/07/16 06:50 BUN 9 mg/dL (7-25) 12/07/16 06:50 Creatinine 0.4 mg/dL (0.6-1.2) L 12/07/16 06:50 Est GFR ( Amer) TNP 12/07/16 06:50 Est GFR (Non-Af Amer) TNP 12/07/16 06:50 BUN/Creatinine Ratio 22.5 12/07/16 06:50 Glucose 122 mg/dL (70-105) H 12/07/16 06:50 POC Glucose 95 MG/DL (70 - 105) 12/14/16 06:19 Calcium 9.0 mg/dL (8.6-10.3) 12/07/16 06:50 Total Bilirubin 0.5 mg/dL (0.3-1.0) 12/07/16 06:50 AST 11 U/L (13-39) L 12/07/16 06:50 ALT 6 U/L (7-52) L 12/07/16 06:50 Alkaline Phosphatase 86 U/L (34-104) 12/07/16 06:50 Total Protein 6.9 gm/dL (6.0-8.3) 12/07/16 06:50 Albumin 3.8 gm/dL (3.7-5.3) 12/07/16 06:50 Globulin 3.1 gm/dL 12/07/16 06:50 Albumin/Globulin Ratio 1.2 (1.0-1.8) 12/07/16 06:50 Urine Source RANDOM 12/03/16 15:10 Urine Color YELLOW 12/03/16 15:10 Urine Clarity CLEAR (CLEAR) 12/03/16 15:10 Urine pH 6.5 (4.6 - 8.0) 12/03/16 15:10 Ur Specific [place] 1.010 (1.005-1.030) 12/03/16 15:10 Urine Protein NEGATIVE mg/dL (NEGATIVE) 12/03/16 15:10 Urine Glucose (UA) NEGATIVE mg/dL (NEGATIVE) 12/03/16 15:10 Urine Ketones NEGATIVE mg/dL (NEGATIVE) 12/03/16 15:10 Urine Blood NEGATIVE (NEGATIVE) 12/03/16 15:10 Urine Nitrate NEGATIVE (NEGATIVE) 12/03/16 15:10 Urine Bilirubin NEGATIVE (NEGATIVE) 12/03/16 15:10 Urine Urobilinogen 0.2 E.U./dL (0.2 - 1.0) 12/03/16 15:10 Ur Leukocyte Esterase TRACE (NEGATIVE) H 12/03/16 15:10 Urine RBC NONE SEEN /hpf (0-5) 12/03/16 15:10 Urine WBC 2-5 /hpf (0-5) 12/03/16 15:10 Ur Epithelial Cells FEW /lpf (FEW) 12/03/16 15:10 Urine Bacteria FEW /hpf (NONE SEEN) 12/03/16 15:10 - Physical Exam Vitals and I&O: Vital Signs Temp 98.3 F 12/14/16 06:14 Pulse 83 12/14/16 06:14 Resp 19 12/14/16 06:14 BP 130/55 12/14/16 06:14 Pulse Ox 94 12/14/16 06:14 Intake & Output 12/13/16 12/14/16 12/14/16 18:59 06:59 18:59 Intake Total 680 180 Balance 680 180 Intake: Oral 680 180 Other: # Voids 2 1 # Bowel Movements 1 0 Active Medications: Current Medications Acetaminophen (Tylenol) 650 mg PO Q4HR PRN PRN Reason: Pain Stop: 02/02/17 10:37 Acetaminophen (Tylenol Extra Strength) 500 mg PO Q6H PRN PRN Reason: Fever > 101 Stop: 02/04/17 20:06 Al Hydrox/Mg Hydrox/Simethicone (Maalox) 30 ml PO Q4HR PRN PRN Reason: GI DISTRESS Stop: 02/02/17 10:37 Bisacodyl (Dulcolax 10 Mg Supp) 10 mg RC DAILY PRN PRN Reason: Constipation Stop: 02/02/17 10:37 Carbidopa/Levodopa (Sinemet 25 Mg-250 Mg) 1 tab PO QID EMILY Stop: 02/02/17 12:59 Last Admin: 12/13/16 21:16 Dose: 1 tab Donepezil HCl (Aricept) 10 mg PO HS EMILY Stop: 02/02/17 20:59 Last Admin: 12/13/16 21:16 Dose: 10 mg Enalapril Maleate (Vasotec) 10 mg PO DAILY EMILY Stop: 02/03/17 08:59 Last Admin: 12/13/16 08:46 Dose: 10 mg Gabapentin (Neurontin) 100 mg PO BID [facility] Stop: 02/02/17 16:59 Last Admin: 12/13/16 17:15 Dose: 100 mg Guaifenesin/Dextromethorphan (Robitussin Dm) 10 ml PO Q6HR PRN PRN Reason: Cough Stop: 02/11/17 10:24 Last Admin: 12/13/16 17:14 Dose: 10 ml Haloperidol (Haldol) 2 mg PO BID EMILY PRN Reason: Protocol Stop: 02/04/17 16:59 Last Admin: 12/13/16 17:16 Dose: 2 mg Haloperidol Lactate (Haldol) 2 mg IM BID PRN PRN Reason: IF PT REFUSES PO HALDOL Stop: 02/08/17 12:13 Last Admin: 12/12/16 10:05 Dose: 2 mg Insulin Aspart (Novolog) 0 units SUBQ ACHS EMILY PRN Reason: Protocol Stop: 02/02/17 11:29 Last Admin: 12/14/16 06:42 Dose: Not Given Lactobacillus Rhamnosus (Culturelle) 1 each PO DAILY EMILY Stop: 02/05/17 16:59 Last Admin: 12/13/16 08:48 Dose: 1 each Lorazepam (Ativan) 0.5 mg PO Q6H PRN; Protocol PRN Reason: Anxiety/Agitation Stop: 02/01/17 22:03 Last Admin: 12/12/16 17:05 Dose: 0.5 mg Magnesium Hydroxide (Milk Of Magnesia) 30 ml PO DAILY PRN PRN Reason: Constipation Stop: 02/02/17 10:37 Memantine (Namenda) 10 mg PO BID EMILY Stop: 02/02/17 16:59 Last Admin: 12/13/16 17:16 Dose: 10 mg Miscellaneous (Probiotic Screen) 1 ea MC PRN PRN PRN Reason: PROTOCOL Stop: 02/05/17 15:49 Multivitamins/Vitamin C (Theragran) 1 tab PO DAILY EMILY Stop: 02/03/17 08:59 Last Admin: 12/13/16 08:48 Dose: 1 tab Oxybutynin Chloride (Ditropan Xl) 5 mg PO HS EMILY Stop: 02/02/17 20:59 Last Admin: 12/13/16 21:16 Dose: 5 mg Phenytoin (Dilantin) 300 mg PO HS EMILY Stop: 02/02/17 20:59 Last Admin: 12/13/16 21:16 Dose: 300 mg Pioglitazone HCl (Actos) 30 mg PO DAILY EMILY Stop: 02/03/17 08:59 Last Admin: 12/13/16 08:48 Dose: 30 mg Zolpidem Tartrate (Ambien) 5 mg PO HS PRN PRN Reason: Insomnia Stop: 02/01/17 22:03 General: Alert, Cooperative, No acute distress HEENT: Atraumatic, PERRLA, EOMI Neck: Supple, +2 carotid pulse wo bruit Cardiovascular: Regular rate, Normal S1, Normal S2 Lungs: Clear to auscultation Abdomen: Bowel sounds, Soft Extremities: Other (No edema,cynosis,clubbing. Diffuse DJD changes.) Neurological: Normal gait Psych/Mental Status: Mood NL - Procedures Procedures: Procedures Procedure Code Date OTHER GROUP THERAPY 94.44 08/26/14 Assessment/Plan - Problem List Patient Problems: All Active Problems Agitation (Acute) R45.1 - Assessment Assessment: Diabetes Mellitus. Parkinson's disease. Detrusor instability Hypertension. DJD Cough due to bronchitis. Seizure disorder. Alzheimer's dementia. Psychiatric disorder. Fall risk. - Plan Plan: Monitor glucose and vitals. Fall Precautions. Actos for DM. Symptoms control. sinemet for parkinson's disease Ditropan for urinary incontinance. Seizure meds and precautions. Dementia meds. Psych follow up. Fall precautions. General nursing care. Continue current care. Discussed with staff Nutritional Asmnt/Malnutr-PDOC - Dietary Evaluation Malnutrition Findings (Please click <Entered> for more info): Nutritional Asmnt/Malnutrition Start: 12/04/16 10: 19 Text: Status: Complete Freq: Document 12/04/16 10:19 KEM (Rec: 12/04/16 10:26 KEM [email or web address] [email or web address]) Nutritional Asmnt/Malnutrition Patient General Information Diagnosis Not Eating (RFV) Pertinent Medical Hx/Surgical Hx HTN, DM, asthma/COPD, PUD/GERD , dementia, parkinson's disease, edema, psychosis Reported poor PO intake x 5 days Subjective Information Pt sitting up watching television at time of visit, Pt reports "great" appetite and that she eats" everything. " Current Diet Order/ Nutrition Support Mechanical soft low fat, low cholesterol, MOISES, CCHO Patient / S.O Not Indicated Pertinent Medications Ambien, ativan Pertinent Labs Na 138, K 4.0, Cl 106, CO2 28. 4, BUN 13, Cr 0.6, Ca 9.3, glucsoe 129 Nutritional Hx/Data Height 1.68 m Height (Calculated Centimeters) 167.6 Current Weight (lbs) 82.554 kg Weight (Calculated Kilograms) 82.6 Weight (Calculated Grams) 33795.8 Recent Weight Change No Weight Status Approriate GI Symptoms GI Symptoms None Difficult in: Chewing Food Allergies Yes Cultural/Ethnic/[employer] Belief Unknown Usual diet at home unknown Skin Integrity/Comment: vicente score 20 Estimated Nutritional Goals BEE in Kcals: Using Current wt Calories/Kcals/Kg 25-30kcals/kg Kcals Calculated 2075-2490kcals/day Protein: Using Current wt Protein g/k-1.2g/kg Protein Calculated 83-100g/day Fluid: ml 2075-2490ml/day (1ml/kcal) Nutritional Problem 1. Problem Problem Inadequate oral intake related to Etiology cognition vs appetite as evidenced by Signs/Symptoms: admitted for Poor PO intake. Intervention/Recommendation Comments Recommend continuing mechanical soft low fat low cholesterol, CCHO, MOISES diet Recommend if medically appropriate appetite stimulant . Expected Outcomes/Goals Expected Outcomes/Goals PO intake >75% of meals.
[2016-12-14] MEDS: Multivitamin Tab PO SCH (09:27)
[2016-12-14] MEDS: Lactobacillus Rhamnosus 10 Billion CFU Capsule PO SCH (09:28)
[2016-12-14] MEDS: Guaifenesin DM 10 ML UDC PO PRN ×2 (13:22→20:49)
[2016-12-14] MEDS: Oxybutynin Chloride 5 mg ER Tab PO SCH (20:40)
--- NOTE | 2016-12-15 00:14 | Progress Notes ---
DATE: 12/14/2016 Case was discussed with staff of the patient, reviewed records. The patient has been more consistent in taking her medication by mouth, so that is quite a progress. The patient is on Haldol. She continues to be paranoid, internally preoccupied. I will be initiating on her Haldol Decanoate. She has no side effects with the medication, no sedation, no nausea, no extrapyramidal symptoms. We will continue to work with the patient in group therapy, milieu therapy, adjust medication as needed. JOB# [id number]
[2016-12-15] MEDS: INSULIN ASPART, RECOMBINANT 100 UNITS/ML SUBQ SCH ×4 (06:30→20:08)
[2016-12-15] MEDS: Lactobacillus Rhamnosus 10 Billion CFU Capsule PO SCH (11:03)
[2016-12-15] MEDS: Multivitamin Tab PO SCH (11:04)
[2016-12-15] MEDS: Guaifenesin DM 10 ML UDC PO PRN ×2 (17:26→20:33)
[2016-12-15] MEDS: Oxybutynin Chloride 5 mg ER Tab PO SCH (20:34)
--- NOTE | 2016-12-15 21:00 | Progress Notes ---
DATE: 12/15/2016 Case was discussed with staff of the patient, reviewed records. The patient continues to stay in bed, isolating herself. Continues to be internally preoccupied. Unable to make safe plan for self-care. She is also demented, I did initiate Haldol Decanoate on her yesterday 25 mg. The staff reports that she is still not consistent in taking her medication, no side effects with the medication, no sedation, no nausea, and no extrapyramidal symptoms. We will continue to work with the patient in group therapy, milieu therapy, and adjust the medication as needed. JOB# [id number]
[2016-12-16] MEDS: INSULIN ASPART, RECOMBINANT 100 UNITS/ML SUBQ SCH ×2 (06:31→11:23)
--- NOTE | 2016-12-16 08:43 | General Progress Note ---
Subjective - Review of Systems Subjective: Patient is seen and examined. No new complaints. Chart reviewed. Objective - Results Result Diagrams: 12/07/16 06:50 12/07/16 06:50 Recent Labs: Laboratory Last Values WBC 7.9 Th/cmm (4.8-10.8) D 12/07/16 06:50 RBC 4.43 Mil/cmm (3.80-5.20) 12/07/16 06:50 Hgb 13.9 gm/dL (12-16) 12/07/16 06:50 Hct 41.1 % (41.0-60) 12/07/16 06:50 MCV 92.8 fl (81-100) 12/07/16 06:50 MCH 31.4 pg (27.0-31.0) H 12/07/16 06:50 MCHC Differential 33.9 pg (28.0-36.0) 12/07/16 06:50 RDW 12.3 % (11.5-20.0) 12/07/16 06:50 Plt Count 158 Th/cmm (150-400) 12/07/16 06:50 MPV 8.7 fl 12/07/16 06:50 Neutrophils % 74.9 % (40.0-80.0) 12/07/16 06:50 Lymphocytes % 15.8 % (20.0-50.0) L 12/07/16 06:50 Monocytes % 7.9 % (2.0-10.0) 12/07/16 06:50 Eosinophils % 0.8 % (0.0-5.0) 12/07/16 06:50 Basophils % 0.6 % (0.0-2.0) 12/07/16 06:50 Sodium 138 mEq/L (136-145) 12/07/16 06:50 Potassium 3.8 mEq/L (3.5-5.1) 12/07/16 06:50 Chloride 106 mEq/L (98-107) 12/07/16 06:50 Carbon Dioxide 27.5 mEq/L (21.0-31.0) 12/07/16 06:50 Anion Gap 8.3 (7.0-16.0) 12/07/16 06:50 BUN 9 mg/dL (7-25) 12/07/16 06:50 Creatinine 0.4 mg/dL (0.6-1.2) L 12/07/16 06:50 Est GFR ( Amer) TNP 12/07/16 06:50 Est GFR (Non-Af Amer) TNP 12/07/16 06:50 BUN/Creatinine Ratio 22.5 12/07/16 06:50 Glucose 122 mg/dL (70-105) H 12/07/16 06:50 POC Glucose 85 MG/DL (70 - 105) 12/16/16 05:56 Calcium 9.0 mg/dL (8.6-10.3) 12/07/16 06:50 Total Bilirubin 0.5 mg/dL (0.3-1.0) 12/07/16 06:50 AST 11 U/L (13-39) L 12/07/16 06:50 ALT 6 U/L (7-52) L 12/07/16 06:50 Alkaline Phosphatase 86 U/L (34-104) 12/07/16 06:50 Total Protein 6.9 gm/dL (6.0-8.3) 12/07/16 06:50 Albumin 3.8 gm/dL (3.7-5.3) 12/07/16 06:50 Globulin 3.1 gm/dL 12/07/16 06:50 Albumin/Globulin Ratio 1.2 (1.0-1.8) 12/07/16 06:50 Urine Source RANDOM 12/03/16 15:10 Urine Color YELLOW 12/03/16 15:10 Urine Clarity CLEAR (CLEAR) 12/03/16 15:10 Urine pH 6.5 (4.6 - 8.0) 12/03/16 15:10 Ur Specific [place] 1.010 (1.005-1.030) 12/03/16 15:10 Urine Protein NEGATIVE mg/dL (NEGATIVE) 12/03/16 15:10 Urine Glucose (UA) NEGATIVE mg/dL (NEGATIVE) 12/03/16 15:10 Urine Ketones NEGATIVE mg/dL (NEGATIVE) 12/03/16 15:10 Urine Blood NEGATIVE (NEGATIVE) 12/03/16 15:10 Urine Nitrate NEGATIVE (NEGATIVE) 12/03/16 15:10 Urine Bilirubin NEGATIVE (NEGATIVE) 12/03/16 15:10 Urine Urobilinogen 0.2 E.U./dL (0.2 - 1.0) 12/03/16 15:10 Ur Leukocyte Esterase TRACE (NEGATIVE) H 12/03/16 15:10 Urine RBC NONE SEEN /hpf (0-5) 12/03/16 15:10 Urine WBC 2-5 /hpf (0-5) 12/03/16 15:10 Ur Epithelial Cells FEW /lpf (FEW) 12/03/16 15:10 Urine Bacteria FEW /hpf (NONE SEEN) 12/03/16 15:10 - Physical Exam Vitals and I&O: Vital Signs Temp 98.3 F 12/16/16 06:22 Pulse 78 12/16/16 06:22 Resp 18 12/16/16 06:22 BP 120/69 12/16/16 06:22 Pulse Ox 95 12/16/16 06:22 Intake & Output 12/15/16 12/16/16 12/16/16 18:59 06:59 18:59 Intake Total 1200 120 Balance 1200 120 Intake: Oral 1200 120 Other: # Voids 3 # Bowel Movements 1 Active Medications: Current Medications Acetaminophen (Tylenol) 650 mg PO Q4HR PRN PRN Reason: Pain Stop: 02/02/17 10:37 Acetaminophen (Tylenol Extra Strength) 500 mg PO Q6H PRN PRN Reason: Fever > 101 Stop: 02/04/17 20:06 Al Hydrox/Mg Hydrox/Simethicone (Maalox) 30 ml PO Q4HR PRN PRN Reason: GI DISTRESS Stop: 02/02/17 10:37 Bisacodyl (Dulcolax 10 Mg Supp) 10 mg RC DAILY PRN PRN Reason: Constipation Stop: 02/02/17 10:37 Carbidopa/Levodopa (Sinemet 25 Mg-250 Mg) 1 tab PO QID EMILY Stop: 02/02/17 12:59 Last Admin: 12/15/16 20:34 Dose: 1 tab Donepezil HCl (Aricept) 10 mg PO HS EMILY Stop: 02/02/17 20:59 Last Admin: 12/15/16 20:34 Dose: 10 mg Enalapril Maleate (Vasotec) 10 mg PO DAILY EMILY Stop: 02/03/17 08:59 Last Admin: 12/15/16 11:04 Dose: 10 mg Gabapentin (Neurontin) 100 mg PO BID EMILY Stop: 02/02/17 16:59 Last Admin: 12/15/16 17:26 Dose: 100 mg Guaifenesin/Dextromethorphan (Robitussin Dm) 10 ml PO Q6HR PRN PRN Reason: Cough Stop: 02/11/17 10:24 Last Admin: 12/15/16 20:33 Dose: 10 ml Haloperidol (Haldol) 2 mg PO BID EMILY PRN Reason: Protocol Stop: 02/04/17 16:59 Last Admin: 12/15/16 17:27 Dose: 2 mg Haloperidol Decanoate (Haldol Dec) 25 mg IM QMONTH EMILY PRN Reason: Protocol Stop: 02/12/17 14:59 Last Admin: 12/14/16 17:53 Dose: 25 mg Haloperidol Lactate (Haldol) 2 mg IM BID PRN PRN Reason: IF PT REFUSES PO HALDOL Stop: 02/08/17 12:13 Last Admin: 12/12/16 10:05 Dose: 2 mg Insulin Aspart (Novolog) 0 units SUBQ ACHS EMILY PRN Reason: Protocol Stop: 02/02/17 11:29 Last Admin: 12/16/16 06:31 Dose: Not Given Lorazepam (Ativan) 0.5 mg PO Q6H PRN; Protocol PRN Reason: Anxiety/Agitation Stop: 02/01/17 22:03 Last Admin: 12/12/16 17:05 Dose: 0.5 mg Magnesium Hydroxide (Milk Of Magnesia) 30 ml PO DAILY PRN PRN Reason: Constipation Stop: 02/02/17 10:37 Memantine (Namenda) 10 mg PO BID EMILY Stop: 02/02/17 16:59 Last Admin: 12/15/16 17:26 Dose: 10 mg Miscellaneous (Probiotic Screen) 1 ea MC PRN PRN PRN Reason: PROTOCOL Stop: 02/05/17 15:49 Multivitamins/Vitamin C (Theragran) 1 tab PO DAILY EMILY Stop: 02/03/17 08:59 Last Admin: 12/15/16 11:04 Dose: 1 tab Oxybutynin Chloride (Ditropan Xl) 5 mg PO HS EMILY Stop: 02/02/17 20:59 Last Admin: 12/15/16 20:34 Dose: 5 mg Phenytoin (Dilantin) 300 mg PO HS EMILY Stop: 02/02/17 20:59 Last Admin: 12/15/16 20:15 Dose: 300 mg Pioglitazone HCl (Actos) 30 mg PO DAILY EMILY Stop: 02/03/17 08:59 Last Admin: 12/15/16 11:04 Dose: 30 mg Zolpidem Tartrate (Ambien) 5 mg PO HS PRN PRN Reason: Insomnia Stop: 02/01/17 22:03 General: Alert, Cooperative, No acute distress HEENT: Atraumatic, PERRLA, EOMI Neck: Supple, +2 carotid pulse wo bruit Cardiovascular: Regular rate, Normal S1, Normal S2 Lungs: Clear to auscultation Abdomen: Bowel sounds, Soft Extremities: Other (No edema,cynosis,clubbing. Diffuse DJD changes.) Neurological: Normal gait Psych/Mental Status: Mood NL - Procedures Procedures: Procedures Procedure Code Date OTHER GROUP THERAPY 94.44 08/26/14 Assessment/Plan - Problem List Patient Problems: All Active Problems Agitation (Acute) R45.1 - Assessment Assessment: Diabetes Mellitus. Parkinson's disease. Detrusor instability Hypertension. DJD Cough due to bronchitis. Seizure disorder. Alzheimer's dementia. Psychiatric disorder. Fall risk. - Plan Plan: Monitor glucose and vitals. Fall Precautions. Actos for DM. Symptoms control. sinemet for parkinson's disease Ditropan for urinary incontinance. Seizure meds and precautions. Dementia meds. Psych follow up. Fall precautions. General nursing care. Continue current care. Discussed with staff Nutritional Asmnt/Malnutr-PDOC - Dietary Evaluation Malnutrition Findings (Please click <Entered> for more info): Nutritional Asmnt/Malnutrition Start: 12/04/16 10: 19 Text: Status: Complete Freq: Document 12/04/16 10:19 KEM (Rec: 12/04/16 10:26 KEM OCAMPO- [email or web address]) Nutritional Asmnt/Malnutrition Patient General Information Diagnosis Not Eating (RFV) Pertinent Medical Hx/Surgical Hx HTN, DM, asthma/COPD, PUD/GERD , dementia, parkinson's disease, edema, psychosis Reported poor PO intake x 5 days Subjective Information Pt sitting up watching television at time of visit, Pt reports "great" appetite and that she eats" everything. " Current Diet Order/ Nutrition Support Mechanical soft low fat, low cholesterol, MOISES, CCHO Patient / S.O Not Indicated Pertinent Medications trey Yadav Pertinent Labs Na 138, K 4.0, Cl 106, CO2 28. 4, BUN 13, Cr 0.6, Ca 9.3, glucsoe 129 Nutritional Hx/Data Height 1.68 m Height (Calculated Centimeters) 167.6 Current Weight (lbs) 82.554 kg Weight (Calculated Kilograms) 82.6 Weight (Calculated Grams) 36482.8 Recent Weight Change No Weight Status Approriate GI Symptoms GI Symptoms None Difficult in: Chewing Food Allergies Yes Cultural/Ethnic/Yazidi Belief Unknown Usual diet at home unknown Skin Integrity/Comment: vicente score 20 Estimated Nutritional Goals BEE in Kcals: Using Current wt Calories/Kcals/Kg 25-30kcals/kg Kcals Calculated 2075-2490kcals/day Protein: Using Current wt Protein g/k-1.2g/kg Protein Calculated 83-100g/day Fluid: ml 2075-2490ml/day (1ml/kcal) Nutritional Problem 1. Problem Problem Inadequate oral intake related to Etiology cognition vs appetite as evidenced by Signs/Symptoms: admitted for Poor PO intake. Intervention/Recommendation Comments Recommend continuing mechanical soft low fat low cholesterol, CCHO, MOISES diet Recommend if medically appropriate appetite stimulant . Expected Outcomes/Goals Expected Outcomes/Goals PO intake >75% of meals.
[2016-12-16] MEDS: Multivitamin Tab PO SCH (08:52)
[2016-12-16] MEDS: Guaifenesin DM 10 ML UDC PO PRN (08:53)
--- NOTE | 2016-12-16 12:36 | Discharge Summary ---
DATE OF DISCHARGE: 12/16/2016 IDENTIFYING INFORMATION: The patient is an 81-year-old female. HISTORY OF PRESENT ILLNESS: The patient is referred from [facility] because of agitation, refusing medication and aggressive behavior, destructive, and needing redirection. She is a well-known, they have been seeing her at [facility] and also she has multiple prior admissions to this facility for similar reasons, at which time, we have to reach her. COURSE IN THE HOSPITAL: The patient again refuses medication. THE PATIENT IS ALLERGIC TO IODINE, BLUEBERRIES, PROCHLORPERAZINE, COMPAZINE, SULFA, ATIVAN. The patient had to be released and started on Haldol 2 mg twice a day to be given IM if she refuses p.o., after that she was also given Haldol Decanoate 25 mg to be given every month. She has taken on 12/14/2016, the patient progressively got better. She was no longer refusing her medications. She was sleeping well, eating well. So, we felt she could go to a lesser level of care. She has been taking her medication ____. We also continued on Sinemet, bisacodyl, and Aricept 10 mg at bedtime, enalapril, Neurontin, guaifenesin, and insulin Namenda 10 mg twice a day, multivitamin, ___ Dilantin, as she was not consistent in taking her medications, we did not check levels. She was also continued ____. So as the patient improved, felt she could be discharged to a lesser level of care. FINAL DIAGNOSES: AXIS I: Chronic paranoid schizophrenia, dementia. MEDICAL DIAGNOSES: Diabetes mellitus, epilepsy. The patient will be going back to [facility], will follow up with the psychiatrist, primary care physician and a therapist. EXPECTED OUTCOME: Stable if the patient complies with the above. [facility]# [id number]
== END 2016-12-16 16:35 | disposition home or self-care (01) | DRG 57 ==
LOC: ER 13:34 → GERO 17:14
PROVIDERS: ADMIT Psychiatry & Neurology Psychiatry; ATTEND Psychiatry & Neurology Psychiatry
DX: G30.9 Alzheimer's disease, unspecified (principal); F02.81 Dementia in other diseases classified elsewhere, unspecified severity, with behavioral disturbance; G20 Parkinson's disease; F20.0 Paranoid schizophrenia; N39.0 Urinary tract infection, site not specified; J44.9 Chronic obstructive pulmonary disease, unspecified; F29 Unspecified psychosis not due to a substance or known physiological condition; E11.9 Type 2 diabetes mellitus without complications; M19.90 Unspecified osteoarthritis, unspecified site; G40.909 Epilepsy, unspecified, not intractable, without status epilepticus; R32 Unspecified urinary incontinence; K21.9 Gastro-esophageal reflux disease without esophagitis; M81.0 Age-related osteoporosis without current pathological fracture; I10 Essential (primary) hypertension; E78.5 Hyperlipidemia, unspecified; Z91.81 History of falling; Z88.2 Allergy status to sulfonamides; Z88.8 Allergy status to other drugs, medicaments and biological substances; Z91.041 Radiographic dye allergy status; Z91.018 Allergy to other foods; Z91.14 Patient's other noncompliance with medication regimen
CPT/HCPCS: 36415-UA; 71010-TC; 80053-TC; 81001-TC; 82948-90; 85025-TC; 93005; J0696; J1630; J1631; J1815; Z7502; Z7610